=== PATIENT | male | born 1955 ===

== ENCOUNTER 2025-04-22 11:08 | Inpatient (IN) | payer MEDICARE, OTHER, SELFPAY ==
[2025-04-18 09:03] VITALS: BMI 36.6
[2025-04-18 10:45] LABS: % Basophils 1.4 % (0-2); % Eosinophils 4.1 % (0-6); % Immature Granulocytes 0.2 % (0-0.5); % Lymphocytes 29.8 % (20.5-51.1); % Monocytes 11.6 % (1.7-9.3); % Neutrophils 52.9 % (42.2-75.2); Absolute Basophils 0.1 10^3/uL (0-0.2); Absolute Eosinophils 0.3 10^3/uL (0-0.7); Absolute Lymphocytes 1.9 10^3/uL (1.2-3.4); Absolute Monocytes 0.7 10^3/uL (0.1-0.6); Absolute Neutrophils 3.4 10^3/uL (1.4-6.5); Hematocrit 33.8 % (39.0-52.0); Hemoglobin 9.9 g/dL (13.0-18.0); Mean Corp Hgb Conc. 29.3 g/dL (33.0-37.0); Mean Corpuscular Hgb 22.8 pg (27.0-31.0); Mean Corpuscular Volume 77.7 fL (80.0-94.0); Mean Platelet Volume 9.5 fL (7.4-10.4); Nucleated Red Blood Cells % 0 % (-); Platelet Count 227 10^3/uL (130-400); Red Blood Cell Count 4.35 10^6/uL (4.70-6.10); Red Cell Dist. Width 18.6 % (11.5-14.5); White Blood Cell Count 6.4 10^3/uL (4.8-10.8)
[2025-04-18 14:00] LABS: Blood Urea Nitrogen 19 mg/dl (9-20); Calcium 9.3 mg/dl (8.4-10.2); Carbon Dioxide 27 mmol/L (22-30); Chloride 108 mmol/L (98-107); Estimated Creatinine Clearance 100 ml/min; Glucose 69 mg/dl (70-99); Potassium 4.8 mmol/L (3.5-5.1); Sodium 142 mmol/L (135-145); eGFR > 60.00
--- NOTE | 2025-04-19 11:14 | PTCARENOTE ---
Patients 04/18 Hgb-9.9- Eunice @ Dr. Cervantes office notified
--- NOTE | 2025-04-20 10:04 | PTCARENOTE ---
MRSA positive swab 04/18/25, Eunice at Dr Deluna's office notified.
[2025-04-21] VITALS (8 sets, daily range): BP systolic 93–140; BP diastolic 48–76; BMI 36.6
[2025-04-21 14:20] LABS: Glucose - Point of Care 142 mg/dl (70-99)
[2025-04-21] MEDS: NORMOSOL-R/PLASMALYTE-A 1000 IV (14:25)
[2025-04-21] MEDS: TYLENOL 1000 MG PO (14:26)
[2025-04-21] MEDS: CELEBREX 200 MG PO (14:26)
[2025-04-21 16:37] LABS: Glucose - Point of Care 120 mg/dl (70-99)
--- NOTE | 2025-04-21 19:15 | W.PN.SURGUPD ---
Surgical Update
Surgical Update
70 yo M s/p left medial double arthrodesis and achilles tendon lengthening
-Posterior splint to remain C/D/I
-Strict NWB to LLE
-PT/OT, OK for DC following PT eval
-Multimodal analgesia, aspirin BID for DVT prophylaxis upon DC
[2025-04-21 19:40] LABS: Glucose - Point of Care 163 mg/dl (70-99)
--- NOTE | 2025-04-21 20:12 | HPS.HSE ---
Family Physician
-
Family Physician: Stephanie Car
Chief Complaint
-
Postoperative admission
History of Present Illness
Patient is a 70-year-old male with past medical history significant for insulin-dependent diabetes, atrial fibrillation anticoagulation, hypertension, presenting to the hospital postop day 0 status post double arthrodesis and Achilles tendon
lengthening.
This is a plan procedure. No description of intraoperative complications. While in the PACU patient appears in no acute distress. He is hemodynamically stable. He is satting 93% on 2 L oxygen. Patient underwent this procedure for left
flatfootedness.
Medical History
Past Medical History
Past Medical History: Reports Arrhythmia (Atrial fibrillation), HTN, Hypercholesterolemia and IDDM
Past Surgical History: Reports Appendectomy (For remote appendageal tumor), Orthopedic (Bilateral knee replacement, left and right shoulder repairs) and Other (Hernia repair)
Social History
Tobacco: Non-smoker
Alcohol: Occasional
Drug: None
Personal:
Living: With Family
Employment: Not Employed
Family History
Family History: Not pertinent
Allergies / Home Medications
Allergies reflects when Allergies were last updated in [facility] [facility].
Home Medications with original date entered in [facility] [facility]
Allergy/Medication List:
Allergies
Allergy/AdvReac Type Severity Reaction Status Date / Time
No Known Allergies Allergy Verified 04/21/25 14:13
Home Medications
albuterol sulfate 90 mcg/actuation aerosol inhaler (Ventolin HFA) 2 puff inhalation 6XD PRN asthma 04/14/25
amiodarone 200 mg tablet 200 mg PO DAILY 04/14/25
apixaban 5 mg tablet (Eliquis) 5 mg PO BID 04/14/25
atorvastatin 10 mg tablet 10 mg PO QPM 04/14/25
furosemide 20 mg tablet 20 mg PO BID 04/14/25
insulin NPH-regular 70-30 U-100 insulin 100 unit/mL subcutaneous pen (Novolin 70-30 FlexPen U-100 Insulin) 20 unit SC HS 04/14/25
insulin NPH-regular 70-30 U-100 insulin 100 unit/mL subcutaneous pen (Novolin 70-30 FlexPen U-100 Insulin) 40 unit SC DAILY 04/14/25
metoprolol succinate 25 mg tablet,extended release 24 hr 25 mg PO BID 04/14/25
multivitamin with minerals-folic acid 400 mcg-lycopene 370 mcg tablet (One-A-Day Men's 50 Plus) 1 tab PO DAILY 04/14/25
oxycodone-acetaminophen 10 mg-325 mg tablet 1 tab PO Q4H PRN pain 04/14/25
potassium chloride 10 mEq tablet,extended release 10 meq PO DAILY 04/14/25
tirzepatide 7.5 mg/0.5 mL subcutaneous pen injector (Mounjaro) 7.5 mg SC QWEEK 04/14/25
valacyclovir 500 mg tablet 500 mg PO HS 04/14/25
venlafaxine 75 mg capsule,extended release 24 hr (Effexor XR) 75 mg PO HS 04/14/25
Review of Systems
-
Constitutional: Reports No Symptoms
EENT: Reports No Symptoms
Respiratory: Reports No Symptoms
Cardiac: Reports No Symptoms
Abdomen/GI: Reports No Symptoms
: Reports No Symptoms
Musculoskeletal: Reports No Symptoms
Skin: Reports No Symptoms
Neurological: Reports No Symptoms
Endocrine: Reports No Symptoms
Hematologic/Lymphatic: Reports No Symptoms
Psych: Reports No Symptoms
Physical Exam
Vital Signs
Vital Signs
Temp Pulse Resp BP Pulse Ox
98.1 F 71 12 114/67 94
04/21/25 19:33 04/21/25 20:00 04/21/25 20:00 04/21/25 20:00 04/21/25 20:04
Physical Exam
General: Well Developed, Well Nourished and No Apparent Distress
HEENT: NormoCephalic, Moist mucous membranes, Atraumatic and Oxygen
Respiratory: Clear
Cardiac: S1/S2 and Regular Rhythm; No Murmur or Rub
GI: Soft, Non Tender, Non Distended and Normal Bowel Sounds; No Organomegaly
Rectal: Deferred by Provider
Musculoskeletal: No Clubbing, No Cyanosis, No Edema and Other (Left foot in a cast, Right foot appears normal)
Skin: No Rash
Neuro: Nonfocal/grossly intact
Psych: Calm
Laboratory Results
-
04/18/25 09:09
04/18/25 09:09
Data Reviewed
-
Lab Data: Labs Reviewed by me
Old Records: Reviewed
Impression/Plan
-
IMPRESSION:
70-year-old with past medical history of atrial fibrillation ablation, hypertension, hyperlipidemia, insulin-dependent diabetes who is postop day 0 status post left lower extremity arthrodesis and likely sternal lengthening.
PLAN:
1. Post surgical care
- admit to med/surg
- pain control with prn tylenol, oycodone and iv morphine as needed
- NWB to his LLE splint
- Ancef x 24 hours
- incentive spirometry
- ADAT
- PT consultation
2. Atrial fibrillation
- continue amio
- continue metoprolol
- restart AC w/ apixaban 24-48 hours after procedure
3. DM II
- Insulin 70/30 40 am and 20 pm
- sliding scale insulin
4. MELBA - not on CPAP
- Oxygen by [facility]
5. DVT PPX - heparin sq while off AC
Code Status - Full Code
[2025-04-21] MEDS: ANCEF 10 IV (21:16)
--- NOTE | 2025-04-21 21:16 | PTCARENOTE ---
Pt transferred from PACU to at 2116. VSS. AAOx3. Spouse at beside. Oriented to room and call sims. Bed in lowest position, call sims within reach, bed in lowest position.
[2025-04-21 22:24] LABS: Glucose - Point of Care 189 mg/dl (70-99)
[2025-04-21] MEDS: VALTREX 500 MG PO (22:37)
[2025-04-21] MEDS: EFFEXOR XR 75 MG PO (22:37)
[2025-04-21] MEDS: NOVOLOG MIX 70/30 FLEXPEN 15 UNITS SC (22:38)
[2025-04-21] MEDS: HEPARIN 5000 UNITS SC (23:18)
[2025-04-22] VITALS (8 sets, daily range): BP systolic 111–145; BP diastolic 53–70; PULSE 71
[2025-04-22] MEDS: ROXICODONE 10 MG PO ×5 (00:58→21:43)
[2025-04-22] MEDS: ANCEF 10 IV ×3 (03:08→19:45)
[2025-04-22 07:16] LABS: Hematocrit 28.2 % (39.0-52.0); Hemoglobin 8.6 g/dL (13.0-18.0); Mean Corp Hgb Conc. 30.5 g/dL (33.0-37.0); Mean Corpuscular Hgb 23.3 pg (27.0-31.0); Mean Corpuscular Volume 76.4 fL (80.0-94.0); Mean Platelet Volume 9.3 fL (7.4-10.4); Platelet Count 212 10^3/uL (130-400); Red Blood Cell Count 3.69 10^6/uL (4.70-6.10); White Blood Cell Count 11.2 10^3/uL (4.8-10.8)
[2025-04-22 07:39] LABS: Blood Urea Nitrogen 17 mg/dl (9-20); Calcium 8.9 mg/dl (8.4-10.2); Carbon Dioxide 26 mmol/L (22-30); Chloride 108 mmol/L (98-107); Estimated Creatinine Clearance 113 ml/min; Glucose 170 mg/dl (70-99); Potassium 4.4 mmol/L (3.5-5.1); Sodium 141 mmol/L (135-145); eGFR > 60.00
[2025-04-22 07:54] LABS: Glucose - Point of Care 189 mg/dl (70-99)
[2025-04-22] MEDS: NOVOLOG FLEXPEN-LOW RESISTANCE 1 UNITS SC ×3 (08:03→17:36)
[2025-04-22] MEDS: HEPARIN 5000 UNITS SC ×3 (08:03→23:18)
[2025-04-22] MEDS: LASIX 20 MG PO ×2 (08:04→15:44)
[2025-04-22] MEDS: PACERONE 200 MG PO (08:04)
[2025-04-22] MEDS: TOPROL XL 25 MG PO ×2 (08:04→19:45)
[2025-04-22] MEDS: THERAGRAN 1 TABLET PO (08:04)
[2025-04-22] MEDS: NOVOLOG MIX 70/30 FLEXPEN 30 UNITS SC (08:05)
--- NOTE | 2025-04-22 08:37 | W.PN.HOSP.TC ---
Today's Communication/Plan
-
see bold
Assessment / Plan
Assessment / Plan
HPI: 70-year-old with past medical history of atrial fibrillation ablation, hypertension, hyperlipidemia, insulin-dependent diabetes status post left lower extremity arthrodesis and likely sternal lengthening 04/21. �
#Left foot Charcot arthropathy, Tendo-Achilles contracture and 2nd hammertoe
Status post left lower extremity arthrodesis and likely sternal lengthening 04/[address] Deluna
PT/OT, pain control, laxatives, NWB to his LLE splint
Awaiting 3 midnight stay for discharge to short-term rehab
#Paroxysmal atrial fibrillation
Continue amiodarone, metoprolol
Plan to restart Eliquis tomorrow evening
#Type 2 diabetes
Continue home insulin regimen with sliding scale insulin
Insulin 70/30 40 am and 20 pm
#MELBA
Not on CPAP
Oxygen by [facility]
#Acute blood loss anemia from surgery
Mild, monitor hemoglobin
DVT prophylaxis-subcu heparin while off of Eliquis
Code Status - Full Code
Total time spent to see the patient on the floor, examine the patient, review data and lab results, discuss treatment plan with patient, nursing staff around 37 minutes.
Physical Exam
General: No acute distress
HEENT: Normocephalic, Atraumatic, EOMI, MMM
Respiratory: Clear to Auscultation bilaterally
Cardiac: Normal S1/S2, Regular Rate and Rhythm
GI: Soft, Nontender, Nondistended, Normal Bowel Sounds
Extremities: No Clubbing, Cyanosis
Left foot splinted and dressed
Neuro: Nonfocal/Grossly Intact
Psych: Calm, Cooperative
Derm: No Visible lesions
Anticipated Discharge: 24 - 48 hours
Subjective/Interval History
-
Date of Service: April 22, 2025
Patient reports that his left foot is numb from the nerve block. He has his usual neuropathy. Denies chest pain, shortness of breath. No fever, no vomiting. He wants to go to rehab.
Objective Data
-
Labs:
Laboratory Results
04/22/25
06:25
WBC 11.2 H
Hgb 8.6 L
Hct 28.2 L
Plt Count 212
Sodium 141
Potassium 4.4
Chloride 108 H
Carbon Dioxide 26
BUN 17
Creatinine 0.8
Glucose 170 H
Calcium 8.9
Vital Signs:
Vital Signs
Temp Pulse Resp BP Pulse Ox
98.0 F 68 16 145/70 96
04/22/25 07:04 04/22/25 07:04 04/22/25 07:04 04/22/25 07:04 04/22/25 07:04
I&O
04/21/25 04/22/25 04/23/25
06:59 06:59 06:59
Intake Total 100 / 100 240 / 240
Output Total 400 / 400
Balance -300 / -300 240 / 240
--- NOTE | 2025-04-22 10:52 | CM ---
CM following re: discharge planning.
Reviewed pt's chart, met with pt.
pt is a 70 year old male, admitted with primary dx of POD#1 Left foot Charcot neuro arthropathy and tendo-Achilles contracture and 2nd hammertoe. Contuinue supportive crae.
Pt repprts he lives with spouse 2SH, 6
--- NOTE | 2025-04-22 10:55 | CM ---
CM following re: discharge planning.
Reviewed pt's chart, met with pt.
Pt is a 70 year old male, admitted with primary dx of POD#1 Left foot Charcot neuro arthropathy and tendo-Achilles contracture and 2nd hammertoe. Continue supportive care.
Pt reports he lives with spouse 2SH, 5 steps to enter and has 1st floor set up. Pt reports he has 2 supportive children. Pt reports he has a walker, knee scooter and crutches at home. Pt is aware he will have NWB status for 6-8 weeks. Pt expressed
his desire to go to a SNF for a short term rehab and following SNFs requested: [facility], [facility], [facility], [facility].
CM will make a referral to above SNFs after PT/OT evaluations.
PT and OT will evaluate the pt to determine a level of care at discharge.
PCP: Stephanie Car
Pharmacy: [facility]
D/C plan: per pt's request, preferred SNF.
CM will follow to assist pt with discharge to a preferred SNF.
[2025-04-22 11:44] LABS: Glucose - Point of Care 181 mg/dl (70-99)
[2025-04-22 16:49] LABS: Glucose - Point of Care 153 mg/dl (70-99)
[2025-04-22] MEDS: LIPITOR 10 MG PO (17:37)
[2025-04-22] MEDS: EFFEXOR XR 75 MG PO (21:18)
[2025-04-22] MEDS: VALTREX 500 MG PO (21:18)
[2025-04-22 21:37] LABS: Glucose - Point of Care 158 mg/dl (70-99)
[2025-04-22] MEDS: NOVOLOG MIX 70/30 FLEXPEN 15 UNITS SC (21:44)
[2025-04-22] MEDS: DILAUDID 0.5 MG IV (22:26)
[2025-04-23] MEDS: ROXICODONE 10 MG PO ×3 (04:51→20:41)
[2025-04-23 06:10] LABS: Hemoglobin 8.2 g/dL (13.0-18.0); Mean Corp Hgb Conc. 30.4 g/dL (33.0-37.0); Mean Corpuscular Hgb 22.8 pg (27.0-31.0); Mean Corpuscular Volume 75.2 fL (80.0-94.0); Mean Platelet Volume 9.7 fL (7.4-10.4); Platelet Count 200 10^3/uL (130-400); Red Blood Cell Count 3.59 10^6/uL (4.70-6.10); Red Cell Dist. Width 19.1 % (11.5-14.5); White Blood Cell Count 9.6 10^3/uL (4.8-10.8)
--- NOTE | 2025-04-23 06:59 | W.PN.HOSP.TC ---
Today's Communication/Plan
-
see a/p
Assessment / Plan
Assessment / Plan
Physical Exam
General: No acute distress
HEENT: Normocephalic, Atraumatic, EOMI, MMM
Respiratory: Clear to Auscultation bilaterally
Cardiac: Normal S1/S2, Regular Rate and Rhythm
GI: Soft, Nontender, Nondistended, Normal Bowel Sounds
Extremities: Left foot dressing clean dry intact
Neuro: AOx3 conversant coherent
Psych: Calm, Cooperative
Derm: No Visible lesions
HPI: 70M with past medical history of atrial fibrillation ablation, hypertension, hyperlipidemia, insulin-dependent diabetes status post left lower extremity medial double arthrodesis and Achilles tendon lengthening 04/21. �
#Left foot Charcot arthropathy, Tendo-Achilles contracture and 2nd hammertoe
Status post left lower extremity double arthrodesis and Achilles Tendon lengthening 04/[address] Deluna
PT/OT, pain control, laxatives, NWB to his LLE splint
Awaiting 3 midnight stay for discharge to short-term rehab
#Paroxysmal atrial fibrillation
Continue amiodarone, metoprolol
Eliquis to resume this evening
#Type 2 diabetes
Continue home insulin regimen with sliding scale insulin
Insulin 70/30 40 am and 20 pm
#MELBA
Not on CPAP
Oxygen by [facility]
#Acute blood loss anemia from surgery
Mild, monitor hemoglobin
DVT prophylaxis-Eliquis to resume this evening
Code Status - Full Code
Total time spent to see the patient on the floor, examine the patient, review data and lab results, discuss treatment plan with patient, nursing staff around 40 minutes.
Anticipated Discharge: 24 - 48 hours
Subjective/Interval History
-
Date of Service: April 23, 2025
No acute distress sitting up comfortably in chair. Overall reports feeling well. Pain relatively well controlled with current pain regimen.
Objective Data
-
Labs:
Laboratory Results
04/23/25
05:04
WBC 9.6
Hgb 8.2 L
Hct 27.0 L
Plt Count 200
Vital Signs:
Vital Signs
Temp Pulse Resp BP Pulse Ox
98.2 F 67 17 127/67 91
04/22/25 23:00 04/22/25 23:00 04/22/25 23:00 04/22/25 23:00 04/22/25 23:00
I&O
04/21/25 04/22/25 04/23/25
06:59 06:59 06:59
Intake Total 100 / 100 1600 / 1600
Output Total 400 / 400 1950 / 1950
Balance -300 / -300 -350 / -350
[2025-04-23 07:00] VITALS: BP 121/59
[2025-04-23 07:37] LABS: Glucose - Point of Care 124 mg/dl (70-99)
[2025-04-23] MEDS: LASIX 20 MG PO ×2 (08:43→16:08)
[2025-04-23] MEDS: NOVOLOG FLEXPEN-LOW RESISTANCE SC ×2 (08:43→12:01)
[2025-04-23] MEDS: THERAGRAN 1 TABLET PO (08:43)
[2025-04-23] MEDS: HEPARIN 5000 UNITS SC (08:43)
[2025-04-23] MEDS: PACERONE 200 MG PO (08:43)
[2025-04-23] MEDS: NOVOLOG MIX 70/30 FLEXPEN 30 UNITS SC (08:44)
[2025-04-23] MEDS: TOPROL XL 25 MG PO ×2 (08:44→20:35)
[2025-04-23] MEDS: DILAUDID 0.5 MG IV ×2 (08:47→22:08)
[2025-04-23 11:42] LABS: Glucose - Point of Care 144 mg/dl (70-99)
[2025-04-23 15:00] VITALS: BP 125/62
[2025-04-23 17:18] LABS: Glucose - Point of Care 185 mg/dl (70-99)
[2025-04-23] MEDS: NOVOLOG FLEXPEN-LOW RESISTANCE 1 UNITS SC (17:38)
[2025-04-23] MEDS: LIPITOR 10 MG PO (17:38)
[2025-04-23] MEDS: EFFEXOR XR 75 MG PO (20:35)
[2025-04-23] MEDS: VALTREX 500 MG PO (20:35)
[2025-04-23] MEDS: ELIQUIS 5 MG PO (20:39)
[2025-04-23 21:40] LABS: Glucose - Point of Care 145 mg/dl (70-99)
[2025-04-23] MEDS: NOVOLOG MIX 70/30 FLEXPEN 15 UNITS SC (22:04)
[2025-04-23 23:00] VITALS: BP 140/59
[2025-04-24 04:59] LABS: Hematocrit 27.6 % (39.0-52.0); Hemoglobin 8.3 g/dL (13.0-18.0); Mean Corp Hgb Conc. 30.1 g/dL (33.0-37.0); Mean Corpuscular Hgb 22.6 pg (27.0-31.0); Mean Corpuscular Volume 75.2 fL (80.0-94.0); Mean Platelet Volume 9.4 fL (7.4-10.4); Platelet Count 221 10^3/uL (130-400); Red Blood Cell Count 3.67 10^6/uL (4.70-6.10); White Blood Cell Count 8.8 10^3/uL (4.8-10.8)
--- NOTE | 2025-04-24 07:02 | W.PN.HOSP.TC ---
Today's Communication/Plan
-
cont Eliquis
monitor H&H
PT/OT
pain control
wound care
discharge planning SNF rehab
Assessment / Plan
Assessment / Plan
Physical Exam
General: No acute distress
HEENT: Normocephalic, Atraumatic, EOMI, MMM
Respiratory: Clear to Auscultation bilaterally
Cardiac: Normal S1/S2, Regular Rate and Rhythm
GI: Soft, Nontender, Nondistended, Normal Bowel Sounds
Extremities: Left foot dressing clean dry intact
Neuro: AOx3 conversant coherent
Psych: Calm, Cooperative
Derm: No Visible lesions
HPI: 70M with past medical history of atrial fibrillation ablation, hypertension, hyperlipidemia, insulin-dependent diabetes status post left lower extremity medial double arthrodesis and Achilles tendon lengthening 04/21. �
#Left foot Charcot arthropathy, Tendo-Achilles contracture and 2nd hammertoe
Status post left lower extremity double arthrodesis and Achilles Tendon lengthening 04/[address] Deluna
PT/OT, pain control, laxatives, NWB to his LLE splint
Awaiting 3 midnight stay for discharge to short-term rehab
#Paroxysmal atrial fibrillation
Continue amiodarone, metoprolol
Eliquis to resumed evening 04/23/25, tolerating, cont
#Type 2 diabetes
Continue home insulin regimen with sliding scale insulin
Insulin 70/30 40 am and 20 pm
monitor and titrate insulin regimen as necessary
#MELBA
Not on CPAP
Oxygen by [facility]
#Acute blood loss anemia from surgery
Mild, monitor hemoglobin
DVT prophylaxis-Eliquis
Code Status - Full Code
Total time spent to see the patient on the floor, examine the patient, review data and lab results, discuss treatment plan with patient, nursing staff around 40 minutes.
Anticipated Discharge: 24 - 48 hours
Subjective/Interval History
-
Date of Service: April 24, 2025
No acute distress. Pain relatively well controlled at this time with current pain regimen.
Objective Data
-
Labs:
Laboratory Results
04/24/25
04:05
WBC 8.8
Hgb 8.3 L
Hct 27.6 L
Plt Count 221
Vital Signs:
Vital Signs
Temp Pulse Resp BP Pulse Ox
98.7 F 69 16 140/59 95
04/23/25 23:00 04/23/25 23:00 04/23/25 23:00 04/23/25 23:00 04/23/25 23:00
I&O
04/23/25 04/24/25 04/25/25
06:59 06:59 06:59
Intake Total 1600 / 1600 600 / 600
Output Total 1950 / 1950 3000 / 3000
Balance -350 / -350 -2400 / -2400
[2025-04-24 07:15] VITALS: BP 111/53
[2025-04-24 07:43] LABS: Glucose - Point of Care 155 mg/dl (70-99)
[2025-04-24] MEDS: ROXICODONE 10 MG PO ×3 (08:02→23:55)
[2025-04-24] MEDS: TOPROL XL 25 MG PO ×2 (08:03→19:48)
[2025-04-24] MEDS: LASIX 20 MG PO ×2 (08:03→15:40)
[2025-04-24] MEDS: ELIQUIS 5 MG PO ×2 (08:03→19:47)
[2025-04-24] MEDS: NOVOLOG MIX 70/30 FLEXPEN 30 UNITS SC (08:04)
[2025-04-24] MEDS: NOVOLOG FLEXPEN-LOW RESISTANCE 1 UNITS SC (08:05)
[2025-04-24] MEDS: PACERONE 200 MG PO (08:05)
[2025-04-24] MEDS: THERAGRAN 1 TABLET PO (08:05)
[2025-04-24] MEDS: DILAUDID 0.5 MG IV ×2 (09:47→20:08)
[2025-04-24] MEDS: FLUSH (NSS) 2 FLUSH IV (09:48)
[2025-04-24 12:18] LABS: Glucose - Point of Care 73 mg/dl (70-99)
[2025-04-24] MEDS: NOVOLOG FLEXPEN-LOW RESISTANCE SC ×2 (12:29→17:03)
[2025-04-24 15:39] VITALS: BP 114/56
[2025-04-24 16:55] LABS: Glucose - Point of Care 119 mg/dl (70-99)
[2025-04-24 17:11] VITALS: BP 137/63; PULSE 67; O2SAT 97
[2025-04-24] MEDS: LIPITOR 10 MG PO (17:45)
[2025-04-24] MEDS: SENOKOT-S 1 TABLET PO (18:08)
[2025-04-24 19:45] VITALS: BP 161/66
[2025-04-24] MEDS: VALTREX 500 MG PO (21:10)
[2025-04-24] MEDS: EFFEXOR XR 75 MG PO (21:10)
[2025-04-24 21:36] LABS: Glucose - Point of Care 186 mg/dl (70-99)
[2025-04-24] MEDS: NOVOLOG MIX 70/30 FLEXPEN 15 UNITS SC (21:49)
[2025-04-24 23:00] VITALS: BP 132/61
[2025-04-25] MEDS: ROXICODONE 10 MG PO (05:53)
[2025-04-25 06:27] LABS: Hematocrit 28.3 % (39.0-52.0); Hemoglobin 8.7 g/dL (13.0-18.0); Mean Corp Hgb Conc. 30.7 g/dL (33.0-37.0); Mean Corpuscular Hgb 23.1 pg (27.0-31.0); Mean Corpuscular Volume 75.3 fL (80.0-94.0); Mean Platelet Volume 9.2 fL (7.4-10.4); Platelet Count 235 10^3/uL (130-400); Red Blood Cell Count 3.76 10^6/uL (4.70-6.10); Red Cell Dist. Width 19.1 % (11.5-14.5); White Blood Cell Count 7.8 10^3/uL (4.8-10.8)
[2025-04-25 06:52] LABS: Blood Urea Nitrogen 14 mg/dl (9-20); Calcium 8.7 mg/dl (8.4-10.2); Carbon Dioxide 29 mmol/L (22-30); Chloride 103 mmol/L (98-107); Estimated Creatinine Clearance 113 ml/min; Glucose 103 mg/dl (70-99); Iron 31 ug/dl (49-181); Sodium 140 mmol/L (135-145); eGFR > 60.00
[2025-04-25 07:01] LABS: Percent Saturation 8 % (20-50); Total Iron Binding Capacity 362 ug/dl (261-462)
[2025-04-25 07:05] VITALS: BP 117/50
[2025-04-25 07:19] LABS: Glucose - Point of Care 144 mg/dl (70-99)
[2025-04-25] MEDS: ELIQUIS 5 MG PO ×2 (07:29→19:30)
[2025-04-25] MEDS: NOVOLOG MIX 70/30 FLEXPEN 30 UNITS SC (07:29)
[2025-04-25] MEDS: NOVOLOG FLEXPEN-LOW RESISTANCE SC ×3 (07:29→16:27)
--- NOTE | 2025-04-25 07:33 | W.PN.HOSP.TC ---
Today's Communication/Plan
-
Pain regimen adjusted
Likely Discharge SNF rehab tomorrow if no longer requiring IV pain medication
Assessment / Plan
Assessment / Plan
Physical Exam
General: No acute distress
HEENT: Normocephalic, Atraumatic, EOMI, MMM
Respiratory: Clear to Auscultation bilaterally
Cardiac: Normal S1/S2, Regular Rate and Rhythm
GI: Soft, Nontender, Nondistended, Normal Bowel Sounds
Extremities: Left foot dressing clean dry intact
Neuro: AOx3 conversant coherent
Psych: Calm, Cooperative
Derm: No Visible lesions
HPI: 70M with past medical history of atrial fibrillation ablation, hypertension, hyperlipidemia, insulin-dependent diabetes status post left lower extremity medial double arthrodesis and Achilles tendon lengthening 04/21. �
#Left foot Charcot arthropathy, Tendo-Achilles contracture and 2nd hammertoe
Status post left lower extremity double arthrodesis and Achilles Tendon lengthening 04/[address] Deluna
Podiatry eval appreciated
PT/OT, pain control, laxatives, NWB to his LLE splint
continues to require IV Dilaudid for severe breakthrough pain
pain regimen adjusted prn Oxycodone increased to 10 mg for moderate pain and 15 mg for severe
#Paroxysmal atrial fibrillation
Continue amiodarone, metoprolol
Eliquis to resumed evening 04/23/25, tolerating, cont
#Type 2 diabetes
Continue home insulin regimen with sliding scale insulin
Insulin 70/30 40 am and 20 pm
monitor and titrate insulin regimen as necessary
#MELBA
Not on CPAP
Oxygen by [facility]
#Acute blood loss anemia from surgery
#Iron Deficiency Anemia
Mild, monitor hemoglobin
Hgb Trending up
Iron Supplement
DVT prophylaxis-Eliquis
Code Status - Full Code
Total time spent to see the patient on the floor, examine the patient, review data and lab results, discuss treatment plan with patient, nursing staff around 40 minutes.
Anticipated Discharge: Within 24 hours
Subjective/Interval History
-
Date of Service: April 25, 2025
No acute distress, overall reports feeling well. Continues to require IV dilaudid for severe break through pain, last dose this morning.
Objective Data
-
Labs:
Laboratory Results
04/25/25
05:22
WBC 7.8
Hgb 8.7 L
Hct 28.3 L
Plt Count 235
Sodium 140
Potassium 4.0
Chloride 103
Carbon Dioxide 29
BUN 14
Creatinine 0.8
Glucose 103 H
Calcium 8.7
Vital Signs:
Vital Signs
Temp Pulse Resp BP Pulse Ox
99.4 F 64 17 132/61 95
04/24/25 23:00 04/24/25 23:00 04/24/25 23:00 04/24/25 23:00 04/24/25 23:00
I&O
04/24/25 04/25/25 04/26/25
06:59 06:59 06:59
Intake Total 600 / 600 600 / 600
Output Total 3000 / 3000 1550 / 1550
Balance -2400 / -2400 -950 / -950
[2025-04-25] MEDS: LASIX 20 MG PO ×2 (07:34→16:27)
[2025-04-25] MEDS: TOPROL XL 25 MG PO ×2 (07:34→19:31)
[2025-04-25] MEDS: DILAUDID 0.5 MG IV (07:35)
[2025-04-25] MEDS: FLUSH (NSS) 2 FLUSH IV (07:36)
[2025-04-25] MEDS: THERAGRAN 1 TABLET PO (07:46)
[2025-04-25] MEDS: PACERONE 200 MG PO (07:46)
[2025-04-25 07:49] LABS: Folate > 20.0 ng/ml (2.76-20); Vitamin B12 447 pg/ml (239-931)
[2025-04-25] MEDS: FEOSOL 325 MG PO (09:01)
--- NOTE | 2025-04-25 10:03 | CM ---
CM following re: discharge planning.
Reviewed pt's chart, met with pt.
Pt is s/p left lower extremity double arthrodesis and Achilles Tendon lengthening 04/21/25, NWB to his LLE splint.
PT and OT evaluations noted - SNF level of care recommended.
Pt has been notified that [facility] SN[facility], [facility] and [facility] offered a bed. Pt preferred [facility].
IMM reviewed, placed on chart, pt has a copy.
D/C plan: [facility].
CM will follow to assist pt with discharge to [facility] for a short term rehab.
[2025-04-25 11:38] LABS: Glucose - Point of Care 105 mg/dl (70-99)
[2025-04-25] MEDS: ROXICODONE 15 MG PO ×3 (12:51→23:35)
--- NOTE | 2025-04-25 14:23 | W.PN.SURGUPD ---
Surgical Update
Surgical Update
70 yo M s/p left medial double arthrodesis and achilles tendon lengthening DOS 04/21/2025
-Posterior splint to remain C/D/I
-Strict NWB to LLE
-PT/OT
-Anticipate DC to SNF 04/26
-Multimodal analgesia, aspirin BID for DVT prophylaxis upon DC
-F/u 2 weeks after surgery at [facility]
[2025-04-25 15:05] VITALS: BP 148/79
[2025-04-25 16:02] LABS: Glucose - Point of Care 122 mg/dl (70-99)
[2025-04-25] MEDS: LIPITOR 10 MG PO (16:27)
[2025-04-25] MEDS: TYLENOL 650 MG PO ×3 (16:27→23:35)
[2025-04-25 19:32] VITALS: BP 113/51
[2025-04-25] MEDS: MIRALAX 17 GRAMS PO (19:36)
[2025-04-25] MEDS: SENOKOT-S 1 TABLET PO (19:36)
[2025-04-25 20:53] LABS: Glucose - Point of Care 120 mg/dl (70-99)
[2025-04-25] MEDS: NOVOLOG MIX 70/30 FLEXPEN 15 UNITS SC (21:07)
[2025-04-25] MEDS: VALTREX 500 MG PO (21:07)
[2025-04-25] MEDS: EFFEXOR XR 75 MG PO (21:07)
[2025-04-25 23:00] VITALS: BP 126/49
[2025-04-26] MEDS: ROXICODONE 15 MG PO ×4 (04:35→18:53)
[2025-04-26] MEDS: TYLENOL 650 MG PO ×2 (04:35→09:56)
[2025-04-26 07:10] VITALS: BP 107/44
[2025-04-26 07:25] LABS: Glucose - Point of Care 100 mg/dl (70-99)
[2025-04-26] MEDS: NOVOLOG FLEXPEN-LOW RESISTANCE SC ×3 (07:30→18:05)
--- NOTE | 2025-04-26 07:38 | W.PN.HOSP.TC ---
Today's Communication/Plan
-
discharge
Assessment / Plan
Assessment / Plan
Physical Exam
General: No acute distress
HEENT: Normocephalic, Atraumatic, EOMI, MMM
Respiratory: Clear to Auscultation bilaterally
Cardiac: Normal S1/S2, Regular Rate and Rhythm
GI: Soft, Nontender, Nondistended, Normal Bowel Sounds
Extremities: Left foot dressing clean dry intact
Neuro: AOx3 conversant coherent
Psych: Calm, Cooperative
Derm: No Visible lesions
HPI: 70M with past medical history of atrial fibrillation ablation, hypertension, hyperlipidemia, insulin-dependent diabetes status post left lower extremity medial double arthrodesis and Achilles tendon lengthening 04/21. �
#Left foot Charcot arthropathy, Tendo-Achilles contracture and 2nd hammertoe
Status post left lower extremity double arthrodesis and Achilles Tendon lengthening 04/[address] Deluna
Podiatry eval appreciated
PT/OT, pain control, laxatives, NWB to his LLE splint
pain regimen adjusted prn Oxycodone increased to 10 mg for moderate pain and 15 mg for severe
pain subsequently well controlled, no need IV pain meds 24 hours.
#Paroxysmal atrial fibrillation
Continue amiodarone, metoprolol
Eliquis to resumed evening 04/23/25, tolerating, cont
#Type 2 diabetes
Continue home insulin regimen with sliding scale insulin
Insulin 70/30 40 am and 20 pm
Sugars well controlled during stay
#MELBA
Not on CPAP
Oxygen by [facility]
#Acute blood loss anemia from surgery
#Iron Deficiency Anemia
Mild, monitor hemoglobin
Hgb Trending up
Iron Supplement
DVT prophylaxis-Eliquis
Code Status - Full Code
Medically stable fo discharge SNF rehab with outpatient follow up recommendations.
Total Time Preparing Discharge __40 minutes including examination of the patient, summary of the hospital stay, instructions for continuing care to all relevant caregivers; and preparation of discharge records, prescriptions, and referral
forms if necessary.
Anticipated Discharge: Today
Subjective/Interval History
-
Date of Service: April 26, 2025
Seen and examined at bedside in no acute distress. Overall reports feeling well. pain well controlled with current pain regimen. No need for IV pain med past 24 hours. Looking forward to SNF rehab.
Objective Data
-
Vital Signs:
Vital Signs
Temp Pulse Resp BP Pulse Ox
98.4 F 64 16 126/49 98
04/25/25 23:00 04/25/25 23:00 04/25/25 23:00 04/25/25 23:00 04/25/25 23:00
I&O
04/25/25 04/26/25 04/27/25
06:59 06:59 06:59
Intake Total 600 / 600 1560 / 1560
Output Total 1550 / 1550 600 / 600
Balance -950 / -950 960 / 960
[2025-04-26] MEDS: NOVOLOG MIX 70/30 FLEXPEN 30 UNITS SC (09:53)
[2025-04-26] MEDS: PACERONE 200 MG PO (09:55)
[2025-04-26] MEDS: LASIX 20 MG PO ×2 (09:55→18:05)
[2025-04-26] MEDS: FEOSOL 325 MG PO (09:55)
[2025-04-26] MEDS: ELIQUIS 5 MG PO (09:55)
[2025-04-26] MEDS: THERAGRAN 1 TABLET PO (09:55)
[2025-04-26] MEDS: TOPROL XL 25 MG PO (09:55)
[2025-04-26 12:14] LABS: Glucose - Point of Care 93 mg/dl (70-99)
--- NOTE | 2025-04-26 13:11 | CM ---
CM following re: discharge planning.
Reviewed pt's chart, met with pt.
Pt is s/p left lower extremity double arthrodesis and Achilles Tendon lengthening 04/21/25, NWB to his LLE splint.
PT and OT continue recommencing SNF level of care.
Pt preferred [facility]. CM spoke to [facility] admissions evaluator and she confirmed they do have a bed available and pt is accepted for admission today.
IMM reviewed yesterday placed on chart, pt has a copy.
to arrange ambulance BLS. PMNC completed and left with
[facility] nursing report: [phone]
Discharge instructions fax: [phone]
D/C plan: [facility].
--- NOTE | 2025-04-26 13:22 | W.DCSUMMARY ---
Discharge Summary
Discharge Data
Date of Admission: 04/22/25
Date of Discharge: 04/26/25
-
Pending Results: No
Discharge Plan
-
Patient Disposition: [facility]/SNF
Discharge Diagnosis/Procedures: Left foot Charcot arthropathy, Tendo-Achilles contracture and 2nd hammertoe
Status post left lower extremity double arthrodesis and Achilles Tendon lengthening 04/21/[address] Deluna
Paroxysmal atrial fibrillation
Type 2 diabetes
Obstructive sleep apnea, Not on CPAP, on 2L nasal cannula at bedtime
Acute blood loss anemia from surgery
Iron Deficiency Anemia
Condition: Fair
Diet: Diabetic, Carb Controlled
Activity: With assistance, Do not bear weight L leg and With Walker
Driving Restrictions: Not until seen by your Dr
Blood Work: repeat CBC and BMP with primary care provider in 1 week of discharge
Repeat Iron studies with primary care provider in 1 month of discharge
Other Services: PT and OT
Activity Restrictions/Additional Instructions:
Follow up with divorce lawyer in 1 week of discharge.
Scheduled tylenol prescribed for pain.
As needed oxycodone also prescribed for pain.
Iron supplementation prescribed for iron deficiency anemia.
Please take medications as prescribed/recommended and follow up with primary care provider and/or other healthcare provider involved in your care for refills and/or further adjustment to your medication regimen as necessary.
Referrals:
Stephanie Car MD [Family Provider]
Krunal Deluna DPM [Active, Podiatry] - in one week
Prescriptions:
New
ferrous sulfate [FeroSul] 325 mg (65 mg iron) Tablet
325 mg PO DAILY Qty: 30 0RF
acetaminophen [Tylenol Extra Strength] 500 mg Tablet
1,000 mg PO TID 7 Days Qty: 42 0RF
oxycodone 15 mg Tablet
15 mg PO Q4HPRN PRN (Reason: severe pain) Qty: 18 0RF
oxycodone 10 mg Tablet
10 mg PO Q4HPRN PRN (Reason: MODERATE PAIN) Qty: 18 0RF
Continued
venlafaxine [Effexor XR] 75 mg Capsule,Extended Release 24hr
75 mg PO HS
atorvastatin 10 mg Tablet
10 mg PO QPM
amiodarone 200 mg Tablet
200 mg PO DAILY
valacyclovir 500 mg Tablet
500 mg PO HS
furosemide 20 mg Tablet
20 mg PO BID
metoprolol succinate 25 mg Tablet Extended Release 24 Hr
25 mg PO BID
Novolin 70-30 FlexPen U-100 100 unit/mL (70-30) Insulin Pen
40 unit SC DAILY
Novolin 70-30 FlexPen U-100 100 unit/mL (70-30) Insulin Pen
20 unit SC HS
Rx Instructions:
took 10 units 04/20/25
Eliquis 5 mg Tablet
5 mg PO BID
Mounjaro 7.5 mg/0.5 mL Pen Injector
7.5 mg SC QWEEK
Rx Instructions:
sundays
One-A-Day Men's 50 Plus 400-370 mcg Tablet
1 tab PO DAILY
albuterol sulfate [Ventolin HFA] 90 mcg/actuation Hfa Aerosol Inhaler
2 puff INHALATION 6XD PRN (Reason: asthma)
Discontinued
potassium chloride 10 mEq Tablet Extended Release
10 meq PO DAILY
oxycodone-acetaminophen 10-325 mg Tablet
1 tab PO Q4H PRN (Reason: pain)
Discharge Orders:
Discharge Patient (As Directed); Ordered 04/26/25
Ordered By: Tisha Villafuerte
Discharge Date and Time
Print Language: [place]
[2025-04-26] MEDS: TYLENOL PO (14:31)
[2025-04-26 15:05] VITALS: BP 110/69
[2025-04-26 16:53] LABS: Glucose - Point of Care 101 mg/dl (70-99)
[2025-04-26] MEDS: LIPITOR 10 MG PO (18:05)
[2025-04-26] MEDS: TYLENOL 1000 MG PO (18:05)
== END 2025-04-26 19:04 | DRG 504 ==
LOC: 2 SOUTH 11:08
PROVIDERS: Family Medicine; Internal Medicine; ADMITTING PHYSICIAN Student in an Organized Health Care Education/Training Program; ATTENDING PHYSICIAN Internal Medicine; FAMILY PHYSICIAN Internal Medicine; REFERRING PHYSICIAN Internal Medicine Cardiovascular Disease
PROC: 0SGJ0JZ Fusion of Left Tarsal Joint with Synthetic Substitute, Open Approach (ICD-10-PCS; 2025-04-22)
PROC: 0L8P0ZZ Division of Left Lower Leg Tendon, Open Approach (ICD-10-PCS; 2025-04-22)
DX: M67.02 Short Achilles tendon (acquired), left ankle (principal); D62 Acute posthemorrhagic anemia; M20.42 Other hammer toe(s) (acquired), left foot; E11.610 Type 2 diabetes mellitus with diabetic neuropathic arthropathy; I48.0 Paroxysmal atrial fibrillation; G47.33 Obstructive sleep apnea (adult) (pediatric); D50.9 Iron deficiency anemia, unspecified; Z79.01 Long term (current) use of anticoagulants; Z79.4 Long term (current) use of insulin; Z79.899 Other long term (current) drug therapy; I10 Essential (primary) hypertension
CPT/HCPCS: 73630; 76000; 80048; 82607; 82728; 82746; 82962; 83540; 83550; 83735; 84100; 85025; 85027; 87070; 87147; 97110; 97116; 97162; 97166; 97530; 97535; C1713

== ENCOUNTER 2025-06-29 20:45 | Inpatient (IN) | payer MEDICARE, OTHER, SELFPAY ==
[2025-06-29 14:53] VITALS: BMI 33.1
[2025-06-29 15:02] VITALS: BP 109/55
[2025-06-29 15:31] LABS: Hematocrit 29.1 % (39.0-52.0); Hemoglobin 8.8 g/dL (13.0-18.0); Mean Corp Hgb Conc. 30.2 g/dL (33.0-37.0); Mean Corpuscular Volume 75.0 fL (80.0-94.0); Nucleated Red Blood Cells % 0 % (-); Platelet Count 404 10^3/uL (130-400); Red Cell Dist. Width 20.8 % (11.5-14.5)
[2025-06-29 15:39] LABS: ALT (SGPT) 28 U/L (0-50); AST (SGOT) 32 U/L (17-59); Albumin 3.3 g/dl (3.5-5.0); Alkaline Phosphatase 103 U/L (38-126); Blood Urea Nitrogen 14 mg/dl (9-20); Calcium 8.5 mg/dl (8.4-10.2); Carbon Dioxide 26 mmol/L (22-30); Chloride 103 mmol/L (98-107); Glucose 91 mg/dl (70-99); Potassium 4.5 mmol/L (3.5-5.1); Sodium 135 mmol/L (135-145); Total Protein 9.0 g/dl (6.3-8.2); eGFR > 60.00
--- NOTE | 2025-06-29 17:36 | ED.GENMED ---
History of Present Illness
General
Chief Complaint: Post Operative Problem(s)
Time Seen by Provider: 06/29/25 17:36
History of Present Illness
History of Present Illness:
PAST MEDICAL HISTORY AND REVIEW OF OLD RECORDS
- The patient has history of diabetic neuropathy, is a former smoker, has A-fib on Eliquis.
Note:
CHIEF COMPLAINT(S)
Severe swelling and pain in the left foot.
HISTORY OF PRESENT ILLNESS
The patient is a 70-year-old male with a history of diabetes mellitus and diabetic neuropathy, presenting with significant swelling and pain in the left foot. The symptoms prompted him to seek medical attention. The patient reports having undergone
foot surgery in April of this year performed by Dr. Deluna, aimed at correcting bone deformities due to prior Charcot foot diagnosis. He has a history of multiple toe amputations on the left foot.
The current swelling is visibly more prominent in the left foot compared to the right, and the area is warm to the touch, raising concerns for possible infection, despite the absence of erythema and an associated wound. The patient is currently on
apixaban, an anticoagulant medication. The patients white blood cell count has returned with potentially concerning values, and there is consideration for a possible infection, as noted by the warmth of the left foot upon examination.
The patient indicates that the previous physician wanted further tests, and there was a suggestion for hospital admission for further evaluation and potential intravenous antibiotics. Upon examination, the patient reported pain, but at the time of
evaluation, it was not as severe as earlier.
PAST MEDICAL AND SURGICAL HISTORY
- Charcot foot
- Diabetic neuropathy
- Diabetes mellitus
- History of toe amputations on the left foot
- Recent foot surgery in April
EXTERNAL RECORDS REVIEWED
The patients prior surgical and treatment records from [facility], where the recent foot surgery was performed, will be reviewed for further insight into surgical details and postoperative management.
CHRONIC MEDICAL CONDITIONS SIGNIFICANTLY AFFECTING CARE
- Diabetes mellitus
- Diabetic neuropathy
SOCIAL HISTORY
- No relevant social history details were mentioned in the conversation.
REVIEW OF SYSTEMS
- Musculoskeletal: Swelling, pain, and warmth in the left foot
- Integumentary: No significant erythema noted on the foot
- Hematological: Patient is on apixaban
PHYSICAL EXAM
General: Alert, appears just slightly uncomfortable related the pain at the left foot
Skin: Warm to touch on the left foot diffusely with no erythema
Head: Normocephalic, atraumatic.
Neck: Supple, trachea midline.
Eye, Ears, Nose, Mouth, and Throat: Oral mucosa moist.
Cardiovascular: Normal peripheral perfusion, no edema.
Respiratory: Respirations are non-labored.
Gastrointestinal: Abdomen nondistended.
Back: Normal range of motion, normal alignment.
Musculoskeletal: Significant swelling and warmth in the left foot, pain upon physical examination.
Neurological: Alert and oriented to person, place, time, and situation, no focal neurological deficit observed.
Psychiatric: Cooperative, appropriate mood, and affect.
PROBLEM LIST
Acute:
- Swelling and pain of the left foot
- Warmth in the left foot, possible infection
Chronic:
- Charcot foot
- Diabetic neuropathy
- Diabetes mellitus
PLAN
- Coordinate with the hospitalist for possible admission for further tests and evaluation.
- Consider the need for intravenous antibiotics.
- Review previous hospital records and surgical details from [facility].
- Consider an ultrasound to rule out deep vein thrombosis given the patients symptoms and current anticoagulant therapy to assess the cause of the swelling.
DIFFERENTIAL DIAGNOSIS
The Differential Diagnosis includes, in no particular order and is not limited to:
- Diabetic foot infection
- Osteomyelitis
- Gout
- Deep vein thrombosis
- Peripheral artery disease
- Charcot joint disease exacerbation
- Cellulitis
- Venous insufficiency
- Lymphedema
- Trauma-related swelling.
LABS
- White count is normal, hemoglobin at baseline, chemistries unremarkable
UPDATE
-SUMMARY OF ENCOUNTER
The patient, a 70-year-old male with a history of diabetes mellitus and diabetic neuropathy, presented to the emergency department with severe swelling and pain in the left foot. The patients symptoms were concerning for possible infection, given a
history of recent foot surgery and warmth in the area. Initial management included administration of antibiotics and coordination for further investigations.
DISPOSITION
Admit to the hospital for diabetic foot infection and podiatry consultation.
ASSESSMENT
The patients presentation is suggestive of a diabetic foot infection that requires further evaluation and management.
EMERGENCY TREATMENTS ADMINISTERED
Intravenous vancomycin and piperacillin-tazobactam (Zosyn) were administered for suspected infection.
MANAGEMENT OF THE PATIENTS CARE WAS DISCUSSED WITH
The case was discussed with Dr. Boyd, who recommended an MRI and agreed with the antibiotic treatment. Dr. Stewart recommended inpatient MRI.
PLAN
- Admission to the hospital for further evaluation and management of diabetic foot infection.
- Obtain inpatient MRI for detailed assessment of the left foot.
- Continue antibiotics.
- Consult with podiatry for expert management of the foot condition.
INDEPENDENT REVIEW OF LABS AND INTERPRETATION OF TESTS
A possible infection is suggested by a potentially concerning white blood cell count; the foots warmth supports this suspicion. Ultrasound is planned, but DVT is of low suspicion.
FOLLOW-UP INSTRUCTIONS
Coordinate follow-up care and consultation with communications consultant as inpatient.
MEDICATION RECONCILIATION
- Administered vancomycin.
- Administered piperacillin-tazobactam (Zosyn).
MEDICAL DECISION MAKING
- Number and Complexity of Problems Addressed:
Chronic conditions affecting care includes Charcot foot, diabetic neuropathy, diabetes mellitus. Differential diagnosis includes diabetic foot infection, osteomyelitis, gout, deep vein thrombosis, peripheral artery disease, Charcot joint disease
exacerbation, cellulitis, venous insufficiency, lymphedema, trauma-related swelling.
- Data:
Category 1:
Reviewed previous surgical and treatment records from [facility]. Ultrasound ordered, but there is low suspicion for DVT.
Category 3:
Discussed management with Dr. Boyd and Dr. Stewart regarding the need for MRI and inpatient treatment.
- Risk:
Prescription medication was administered. Consideration was given for hospital admission for further evaluation and intravenous antibiotics.
DIAGNOSIS
- Diabetic foot infection, unspecified. (ICD-10: E11.621)
Phy Exam
Physical Exam
Physical Exam:
See HPI
Course
Orders/Labs/Results
Orders:
Orders
06/29/25 15:15
Complete Blood Count/With Diff Urgent
Comprehensive Metabolic Panel Urgent
06/29/25 17:54
CR Foot - Left Min 3 Views Urgent
Comment:
Reason For Exam: pain, charcot
06/29/25 17:55
Piperacillin/Tazo 3.375 Gram [Zosyn] 3.375 gram in 50 ml IV NOW
06/29/25 17:56
Vancomycin [Vancocin] 2,000 mg 0.9% Sodium Chloride 500 ml [Nss] 500 ml IV NOW
06/29/25 18:01
US Periph Venous LOWER Ext LT Urgent
Comment:
Reason For Exam: pain swelling
06/29/25 18:03
Lactic Acid Q4H
Comment: CANCEL 2nd LACTIC ACID IF 1st LACTIC ACID IS LESS THAN 2
Blood Culture Q30M
EDWIGE Source: Blood/Venous
Specimen Description:
06/29/25 18:10
Lower Ext Joint, Left Without MR [MR Left Le Joint Without] Urgent
Comment:
Reason For Exam: pain L foot and ankle; h/o Charcot; eval for infx
Recent pill cam endoscopy?: No
06/29/25 18:11
Blood Culture Q30M
EDWIGE Source: Blood/Venous
Specimen Description:
06/29/25 22:00
Lactic Acid Q4H
Comment: CANCEL 2nd LACTIC ACID IF 1st LACTIC ACID IS LESS THAN 2
Abnormal Lab Results
06/29/25
15:15
RBC 3.88 L 10^6/uL
(4.70-6.10)
Hgb 8.8 L g/dL
(13.0-18.0)
Hct 29.1 L %
(39.0-52.0)
MCV 75.0 L fL
(80.0-94.0)
MCH 22.7 L pg
(27.0-31.0)
MCHC 30.2 L g/dL
(33.0-37.0)
RDW 20.8 H %
(11.5-14.5)
Plt Count 404 H 10^3/uL
(130-400)
Absolute Neuts (auto) 7.7 H 10^3/uL
(1.4-6.5)
Absolute Lymphs (auto) 0.8 L 10^3/uL
(1.2-3.4)
Absolute Monos (auto) 0.7 H 10^3/uL
(0.1-0.6)
Neutrophils % 82.3 H %
(42.2-75.2)
Lymphocytes % 9.0 L %
(20.5-51.1)
Total Protein 9.0 H g/dl
(6.3-8.2)
Albumin 3.3 L g/dl
(3.5-5.0)
06/29/25 15:15
06/29/25 15:15
Vital Signs
Initial and Last Documented VS:
Initial Vital Signs
Temp Pulse Resp BP Pulse Ox
36.6 C 73 18 109/55 99
06/29/25 15:02 06/29/25 15:02 06/29/25 15:02 06/29/25 15:02 06/29/25 15:02
Last Documented Vital Signs
Temp Pulse Resp BP Pulse Ox
36.9 C 76 18 128/66 97
06/29/25 18:14 06/29/25 18:14 06/29/25 15:02 06/29/25 18:10 06/29/25 18:10
*Pulse Oximetry
SaO2: 99
Oxygen Mode of Delivery: Room air
Patient hypoxic: no
*Critical Care Note
Total Time (30-74mins, 75-104mins- exclusive of procedures): Not Applicable
ED Attending Note
-
Portions of this chart may have been created with voice recognition software.� Occasional wrong word or��sound alike� substitutions may have occurred due to the inherent limitations of voice recognition software.
Discharge Plan
Departure
Patient Disposition: Admit
Date of Disposition: 06/29/25
Time of Disposition: 18:23
Presentation/result/management discussed w/ accepting MD/DO: Hospitalist
Patient with high blood pressure during this ER visit?: Yes
Discharge Problem:
Diabetic infection of left foot
Prescriptions:
No Action
venlafaxine [Effexor XR] 75 mg Capsule,Extended Release 24hr
75 mg PO HS
atorvastatin 10 mg Tablet
10 mg PO QPM
amiodarone 200 mg Tablet
200 mg PO DAILY
valacyclovir 500 mg Tablet
500 mg PO HS
furosemide 20 mg Tablet
20 mg PO BID
metoprolol succinate 25 mg Tablet Extended Release 24 Hr
25 mg PO BID
Novolin 70-30 FlexPen U-100 100 unit/mL (70-30) Insulin Pen
40 unit SC DAILY
Novolin 70-30 FlexPen U-100 100 unit/mL (70-30) Insulin Pen
20 unit SC HS
Rx Instructions:
took 10 units 04/20/25
Eliquis 5 mg Tablet
5 mg PO BID
Mounjaro 7.5 mg/0.5 mL Pen Injector
7.5 mg SC QWEEK
Rx Instructions:
sundays
One-A-Day Men's 50 Plus 400-370 mcg Tablet
1 tab PO DAILY
albuterol sulfate [Ventolin HFA] 90 mcg/actuation Hfa Aerosol Inhaler
2 puff INHALATION 6XD PRN (Reason: asthma)
ferrous sulfate [FeroSul] 325 mg (65 mg iron) Tablet
325 mg PO DAILY Qty: 30 0RF
acetaminophen [Tylenol Extra Strength] 500 mg Tablet
1,000 mg PO TID 7 Days Qty: 42 0RF
oxycodone 15 mg Tablet
15 mg PO Q4HPRN PRN (Reason: severe pain) Qty: 18 0RF
oxycodone 10 mg Tablet
10 mg PO Q4HPRN PRN (Reason: MODERATE PAIN) Qty: 18 0RF
Referrals:
Stephanie Car MD [Family Provider]
Interventions
Interventions:
*Risk Screen - Suicide Last Done: 06/29/25 15:07
*General Assessment Last Done: 06/29/25 15:07
*Neglect/Abuse Screening Last Done: 06/29/25 18:20
*ED- Fall Risk Assessment Last Done: 06/29/25 18:20
*ED COVID-19 Vaccine History Last Done: 06/29/25 15:07
ED-Skin Assessment Last Done: 06/29/25 18:20
Discharge Date and Time
Print Language: KINYARWANDA
[2025-06-29 18:10] VITALS: BP 128/66
[2025-06-29] MEDS: ZOSYN 50 IV ×2 (18:12→23:03)
--- NOTE | 2025-06-29 19:05 | W.PN.UPDATE ---
Update Note
Progress Note Update
70M presents with left ankle abscess vs Charcot flare
- MRI L ankle
- continue abx
- npo at midnight, possible OR for I&D pending MRI results
- Strict NWB LLE
- will monitor
[2025-06-29] MEDS: VANCOCIN 540 MG IV (19:26)
--- NOTE | 2025-06-29 19:55 | HPS.HSE ---
Family Physician
-
Family Physician: Stephanie Car
Chief Complaint
-
L Foot Pain / Swelling
History of Present Illness
Patient is a 70y M with PMH significant for A-Fib, DM-II and Charcot foot who presents to ED complaining of pain and swelling in the L foot x 2 days. Patient underwent double arthrodesis and Achilles lengthening on 04/21/25. He states that he was
doing well following the surgery until yesterday evening when he developed severe pain in the L foot. He notes significant swelling as well. he has been ambulating with a boot and toe-touch weight bearing only. He denies any new injury or trauma.
He reports some nausea without emesis. No fevers / chills. No other systemic complaints.
Patient was seen by Podiatry today and sent to the ED for admission / evaluation.
Medical History
Past Medical History
Past Medical History: Reports Other
Additional Past Medical History:
Chronic Persistent Atrial Fibrillation
DM-II
Hypertension
Obesity
MELBA
BPH
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
Charcot Foot
Past Surgical History: Reports Other
Additional Past Surgical History:
Left Foot Double Arthrodesis and Achilles Lengthening (04/21/25)
A-Fib Ablation
Hernia Repair
TKA
Rotator Cuff Surgery
Appendectomy
Social History
Tobacco: Former Smoker (Remote history of smoking.)
Alcohol: Occasional
Drug: None
Family History
Family History: Not pertinent
Allergies / Home Medications
Allergies reflects when Allergies were last updated in [facility].
Home Medications with original date entered in [facility]
Allergy/Medication List:
Allergies
Allergy/AdvReac Type Severity Reaction Status Date / Time
erythromycin base Allergy Nausea / Verified 06/29/25 15:08
Vomiting
morphine Allergy Pharmacy Verified 06/29/25 15:08
to Review
Home Medications
amiodarone 200 mg tablet 200 mg PO DAILY 04/14/25
apixaban 5 mg tablet (Eliquis) 5 mg PO BID 04/14/25
atorvastatin 10 mg tablet 10 mg PO QPM 04/14/25
furosemide 20 mg tablet 20 mg PO DAILY 04/14/25
insulin NPH-regular 70-30 U-100 insulin 100 unit/mL subcutaneous pen (Novolin 70-30 FlexPen U-100 Insulin) 20 unit SC HS 04/14/25
insulin NPH-regular 70-30 U-100 insulin 100 unit/mL subcutaneous pen (Novolin 70-30 FlexPen U-100 Insulin) 40 unit SC DAILY 04/14/25
metoprolol succinate 25 mg tablet,extended release 24 hr 25 mg PO DAILY 04/14/25
tirzepatide 7.5 mg/0.5 mL subcutaneous pen injector (Mounjaro) 7.5 mg SC ESPINAL 04/14/25
valacyclovir 500 mg tablet 500 mg PO HS 04/14/25
venlafaxine 75 mg capsule,extended release 24 hr (Effexor XR) 75 mg PO HS 04/14/25
oxycodone 15 mg tablet 15 mg PO Q4HPRN PRN severe pain #18 tabs 04/26/25
oxycodone-acetaminophen 10 mg-325 mg tablet 1 tab PO Q6HPRN PRN severe pains 06/29/25
potassium chloride 10 mEq tablet,extended release 10 meq PO DAILY 06/29/25
Review of Systems
-
History Source: Patient
A 12 point ROS was completed and negative except as noted: Yes
Constitutional: Denies Fever, Fatigue or Chills
EENT: Denies Sore Throat
Respiratory: Denies Cough or Trouble Breathing
Cardiac: Denies Chest Pain or Palpitations
Abdomen/GI: Reports Nausea; Denies Abdominal Pain, Vomiting or Diarrhea
: Denies Dysuria or Flank Pain
Musculoskeletal: Reports Joint Pain, Joint Swelling and Edema
Neurological: Denies Dizzy or Headache
Psych: Denies Depression or Anxiety
Physical Exam
Vital Signs
Vital Signs
Temp Pulse Resp BP Pulse Ox
98.5 F 76 18 128/66 97
06/29/25 18:14 06/29/25 18:14 06/29/25 15:02 06/29/25 18:10 06/29/25 18:10
Physical Exam
General: Other (70y M in no acute distress.)
HEENT: Moist mucous membranes and PERRLA
Respiratory: Clear; No Wheezes, Rales or Rhonchi
Cardiac: S1/S2 and Irregular Rhythm; No Murmur
GI: Soft, Non Tender, Non Distended and Normal Bowel Sounds
Musculoskeletal: Other (LLE with edema to the knee. Marked edema of the L foot with increased warmth and areas of apparent fluctuance medailly and laterally at the ankle. No erythmea / induration. No bleeding or discharge.)
Neuro: AO x 3
Laboratory Results
-
06/29/25 15:15
06/29/25 15:15
Laboratory Results
Lactic Acid 0.8 mmol/L (0.7-2.0) 06/29/25 18:03
Total Bilirubin 0.5 mg/dl (0.2-1.3) 06/29/25 15:15
AST 32 U/L (17-59) 06/29/25 15:15
ALT 28 U/L (0-50) 06/29/25 15:15
Alkaline Phosphatase 103 U/L (38-126) 06/29/25 15:15
Impression/Plan
-
A/P: Patient is a 70y M with PMH significant for A-Fib, DM-II and Charcot foot s/p surgery on 04/21/25 who presents to ED complaining of L foot pain and swelling x 2 days.
Left Foot Infection / Charcot Foot
- Admit for further evaluation and treatment.
- Exam concerning with marked edema, increased warmth and areas of apparent fluctuance about the ankle.
- MRI is ordered to evaluate for underlying collection / abscess.
- Continue empiric IV abx for now.
- Follow up MRI results and then consider aspiration, wash-out, etc as needed.
- Operative cultures if any intervention is performed.
- Ortho / Podiatry consulted.
- Supportive care, pain control, etc.
Chronic Persistent Atrial Fibrillation
- Stable. s/p prior catheter ablation.
- Hold Eliquis acutely for possible OR.
- Continue metoprolol with holding parameters.
Chronic HF - Unknown Type
- Stable. Continue current Lasix dosing.
- Follow I/Os, daily weights, etc.
DM-II
- Stable. Basal : bolus insulin regimen for now.
- Update A1C.
Chronic Microcytic Anemia
- No significant improvement from post-op state 2 months ago.
- Check iron studies, etc.
- Follow for changes in H&H.
- No evidence of acute bleeding, etc at present.
Obesity due to excess calories
MELBA not on CPAP
- Affects all aspects of care.
- Encourage healthy diet and activity as able with goal of weight loss.
DVT Prophylaxis: SCDs for now. Resume Eliquis when OK with surgical service.
Code Status: Full
[2025-06-29 22:00] LABS: Iron 37 ug/dl (49-181)
[2025-06-29 22:10] LABS: Total Iron Binding Capacity 207 ug/dl (261-462)
[2025-06-29 22:50] LABS: Glucose - Point of Care 44 mg/dl (70-99)
--- NOTE | 2025-06-29 22:52 | PHA.VAN.IN ---
Assessment
- Assessment
Renal Function: Appears similar to baseline
Concomitant Antimicrobials: ZOSYN
AUC Dosing Plan
- Dosing Variables
Dosing Weight (kg): 110.5
Dosing CrCl (ml/min): 109
Vd coefficient (L/kg): 0.7
- Empiric Dosing
Initial / Loading Dose: 2000 MG IV ~1930
Maintenance Regimen: 1500 MG IV Q12H
Estimated AUC (mcg*h/mL): 438
Estimated Peak (mcg*h/mL): 28.5
Estimated Trough (mcg/ml): 10.5
Estimated Half Life (H): 7.3
- Monitoring
No levels ordered at this time: Consider levels in next few days
Pharmacokinetics Vancomycin I
- -
Patient Age: 70
Patient Sex: Male
Vancomycin Day #: 1
Indication: Diabetic Foot
Requesting Provider: Dr Delvin Yepez
Height / Weight:
Height 6 ft
Actual Weight 110.5 kg
Pertinent Past Medical History: DM-II and Charcot foot who presents to ED complaining of pain/swelling
- Vital Signs / Lab Results
Temp Pulse Resp BP Pulse Ox
98.5 F 76 18 128/66 97
06/29/25 18:14 06/29/25 18:14 06/29/25 15:02 06/29/25 18:10 06/29/25 18:10
Lab Results - Hematology
06/29/25
15:15
WBC 9.4
Lab Results - Chemistry
06/29/25
15:15
BUN 14
Creatinine 0.8
Albumin 3.3 L
06/29/25 06/29/25
18:03 22:00
Lactic Acid 0.8 Cancelled
[2025-06-29] MEDS: DEXTROSE 50% SYRINGE 12.5 GRAMS IV (22:53)
[2025-06-29 22:55] VITALS: BMI 30.7
[2025-06-29 22:56] VITALS: BP 101/70
[2025-06-29] MEDS: VALTREX 500 MG PO (22:58)
[2025-06-29] MEDS: EFFEXOR XR 75 MG PO (22:58)
[2025-06-29 23:13] LABS: Glucose - Point of Care 73 mg/dl (70-99)
[2025-06-29 23:27] VITALS: BMI 30.7
--- NOTE | 2025-06-29 23:35 | W.PN.UPDATE ---
Update Note
Progress Note Update
BS 44, Dextrose give and BS is 72. Patient is NPO and Lantus held. Will order D5NS 50 cc/hr. Admitting Dr. harvey.
BS 61>88>97
[2025-06-29] MEDS: D5/0.9% SODIUM CHLORIDE 1000 IV (23:51)
[2025-06-29 23:57] VITALS: BMI 29.8
[2025-06-30] VITALS (7 sets, daily range): BP systolic 122–135; BP diastolic 53–86; PULSE 65; O2SAT 97
[2025-06-30] MEDS: DEXTROSE 50% SYRINGE 12.5 GRAMS IV (01:21)
[2025-06-30 01:22] LABS: Glucose - Point of Care 61 mg/dl (70-99)
[2025-06-30 01:45] LABS: Glucose - Point of Care 99 mg/dl (70-99)
[2025-06-30 03:15] LABS: Glucose - Point of Care 88 mg/dl (70-99)
[2025-06-30] MEDS: TYLENOL 650 MG PO (03:35)
[2025-06-30] MEDS: ROXICODONE 10 MG PO (04:58)
[2025-06-30] MEDS: ZOSYN 50 IV ×2 (04:59→12:51)
[2025-06-30 05:44] LABS: Glucose - Point of Care 97 mg/dl (70-99)
[2025-06-30] MEDS: VANCOCIN 530 MG IV (05:53)
[2025-06-30] MEDS: DILAUDID 0.5 MG IV (06:10)
--- NOTE | 2025-06-30 07:40 | PTCARENOTE ---
pt is aaox3, no c/o left pain at this time. pt is NPO. pt is oriented to room w/ call sims in reach. bed alarm on.
Pt accucheck=44- administered Dextrose (see Mar) repeat accucheck=73. pt was asymptomatic. S/w AMMONIA DISTILLER Ravin -prdered D5NS at 50cc/hr. recheck 2hrs later accucheck=61 - administered dextrose. pt was asymptomatic. repeat accucheck=99. q2hr checks blood
sugars=88 then 97.
[2025-06-30 07:56] LABS: Glucose - Point of Care 111 mg/dl (70-99)
[2025-06-30] MEDS: NOVOLOG FLEXPEN-MODERATE RESISTANCE SC ×3 (08:06→18:40)
[2025-06-30 08:18] LABS: Hematocrit 23.7 % (39.0-52.0); Hemoglobin 7.2 g/dL (13.0-18.0); Mean Corp Hgb Conc. 30.4 g/dL (33.0-37.0); Mean Corpuscular Volume 73.8 fL (80.0-94.0); Platelet Count 308 10^3/uL (130-400); Red Cell Dist. Width 20.7 % (11.5-14.5)
[2025-06-30] MEDS: TOPROL XL 25 MG PO (08:21)
[2025-06-30] MEDS: LASIX 20 MG PO (08:21)
[2025-06-30] MEDS: PACERONE 200 MG PO (08:21)
[2025-06-30 08:48] LABS: Blood Urea Nitrogen 10 mg/dl (9-20); Calcium 7.9 mg/dl (8.4-10.2); Carbon Dioxide 23 mmol/L (22-30); Chloride 105 mmol/L (98-107); Estimated Creatinine Clearance 83 ml/min; Glucose 82 mg/dl (70-99); Potassium 3.9 mmol/L (3.5-5.1); Sodium 132 mmol/L (135-145); eGFR > 60.00
--- NOTE | 2025-06-30 09:51 | W.PN.HOSP.TC ---
Today's Communication/Plan
-
MRI
Follow-up final blood cultures
Echocardiogram.
IV antibiotics
Adjust analgesic regimen increasing oxycodone to 15 mg every 4 hours as needed for pain and addition of IV hydromorphone 1 mg every 3 hours for breakthrough episodes.
Hold standing dose of insulin while NPO monitor for recurrent hypoglycemia.
Hold Eliquis anticipating surgical intervention
Assessment / Plan
Assessment / Plan
Impression:
Patient is a 70y M with PMH significant for A-Fib, DM-II and Charcot foot s/p surgery on 04/21/25 who presents to ED complaining of L foot pain and swelling x 2 days.
Left foot/ankle abscess
Staphylococcal bacteremia
Conditions prior to admission:
Status post double arthrodesis and Achilles lengthening on 04/21/2025
History of of MRSA bacteremia with left shoulder septic arthritis surgically treated at [facility] completed 6 weeks of antibiotics January - February 2025.
Chronic persistent atrial fibrillation baseline anticoagulation with Eliquis
Chronic CHF unknown type.
IDDM.
Chronic microcytic anemia.
Obesity due to excessive calories
Obstructive sleep apnea on CPAP.
Plan
Left Foot Infection / Charcot Foot
Staphylococcal bacteremia pending final cultures
- Exam concerning with marked edema, increased warmth and areas of apparent fluctuance about the ankle.
- MRI is ordered to evaluate for underlying collection / abscess.
- Continue empiric IV abx for now. Vancomycin/Zosyn ID evaluation
-Echocardiogram
-Blood cultures for clearance
- Follow up MRI results and then consider aspiration, wash-out, etc as needed.
- Operative cultures if any intervention is performed.
- Ortho / Podiatry consulted.
- Supportive care, pain control, etc.
Chronic Persistent Atrial Fibrillation
- Stable. s/p prior catheter ablation.
- Hold Eliquis acutely for possible OR.
- Continue metoprolol, amiodarone with holding parameters.
Chronic HF - Unknown Type
- Stable. Euvolemic. Hold Lasix acutely.
- Follow I/Os, daily weights, etc.
�Update echocardiogram
DM-II
- Stable. Basal : bolus insulin regimen for now.
- Update A1C.
Chronic Microcytic Anemia
- No significant improvement from post-op state 2 months ago.
- Iron studies consistent with mild iron deficiency and anemia of chronic inflammation
- Follow for changes in H&H.
- No evidence of acute bleeding, etc at present.
- IV iron
Obesity due to excess calories
MELBA not on CPAP
- Affects all aspects of care.
- Encourage healthy diet and activity as able with goal of weight loss.
DVT Prophylaxis: SCDs for now. Resume Eliquis when OK with surgical service.
Anticipated Discharge: > 48 hours
Subjective/Interval History
-
Date of Service: June 30, 2025
Objective Data
-
Labs:
Laboratory Results
06/30/25
07:08
WBC 9.5
Hgb 7.2 L
Hct 23.7 L
Plt Count 308 D
Sodium 132 L
Potassium 3.9
Chloride 105
Carbon Dioxide 23
BUN 10
Creatinine 0.9
Glucose 82
Calcium 7.9 L
Vital Signs:
Vital Signs
Temp Pulse Resp BP Pulse Ox
98.2 F 70 16 122/63 96
06/30/25 08:12 06/30/25 08:12 06/30/25 08:12 06/30/25 08:12 06/30/25 08:12
I&O
06/29/25 06/30/25 07/01/25
06:59 06:59 06:59
Intake Total 890 / 890
Output Total 400 / 400 175 / 175
Balance 490 / 490 -175 / -175
Physical Exam
-
General: Well Developed and No Apparent Distress
HEENT: Normocephalic, Atraumatic and Moist Mucous Membranes
Respiratory: Clear to Auscultation
Cardiac: Regular Rhythm and S1/S2; Negative Murmur, Rub or Gallop
GI: Soft, Nontender, Nondistended and Normal Bowel Sounds; Negative Organomegaly
Rectal: Deferred by Provider
Musculoskeletal: No Clubbing, No Cyanosis, No Edema and Other (Left foot/ankle with edema erythema and fluctuance at the medial aspect of the joint.)
Skin: Negative Rash
Neuro: Nonfocal/Grossly Intact
--- NOTE | 2025-06-30 09:53 | PHA.VAN.FU ---
Vancomycin Assessment / Plan
- Assessment
Renal Function: Stable
WBC's are: WNL
Concomitant Antimicrobials: piperacillin/tazobactam; chronic valacyclovir
- Dosing Plan
Adjust Regimen to: Vanc 1250mg Q12H
New Regimen Predicts: AUC (514), Peak (30.5), Trough (14.1)
Dosing Comments: weight decreased by 10kg from admission
- Monitoring Plan
No level(s) ordered at this time: consider levels in next few days
- Follow Up
Pharmacy will continue to follow.
Vancomycin Follow UP
- -
Patient Age: 70
Patient Sex: Male
Vancomycin Day #: 2
Indication: Diabetic Foot
Requesting Provider: Dr Delvin Yepez
Pertinent Antimicrobial Allergies:
erythromycin - N/V
Height / Weight:
Height 6 ft
Actual Weight 99.592 kg
Pertinent Past Medical History: DM II
- Vital Signs / Lab Results
Temp Pulse Resp BP Pulse Ox
98.2 F 70 16 122/63 96
06/30/25 08:12 06/30/25 08:12 06/30/25 08:12 06/30/25 08:12 06/30/25 08:12
Lab Results - Hematology
06/29/25 06/30/25
15:15 07:08
WBC 9.4 9.5
Lab Results - Chemistry
06/29/25 06/30/25
15:15 07:08
BUN 14 10
Creatinine 0.8 0.9
Estimated Creat Clear 83
Albumin 3.3 L
06/29/25 06/29/25
18:03 22:00
Lactic Acid 0.8 Cancelled
Microbiology Results
06/29/25 18:03 Blood Culture - Preliminary
Blood/Venous Staph aureus MRSA
Gram Stain - Preliminary
--- NOTE | 2025-06-30 10:42 | CON.ID ---
Addendum entered and electronically signed by Sophie Willingham MD 06/30/25 15:14:
I personally performed a history and physical exam of the patient and discussed management with the resident. I reviewed the resident's note and agree with the documented findings and plan of care HPI/CC.
# Left foot/ankle hardware infection
.04/21/25 s/p arthrodesis and Achilles tendon lengthening
# MRSA bacteremia x 2 sets - foot source
# Fever
# Recent h/o MRSA bacteremia, septic arthritis of left shoulder s/p washout completed close to 12 weeks of IV abx at OSH (12/2024)
# DM
- TTE
- Repeat blood cultures
- Needs OR I+D, remove HW, if feasible, left foot
- Continue Vancomycin.
-DC Zosyn
- Follow temps.
Original Note:
Consultation
-
Date/Time Consultation Requested: 06/30/2025 09:44
Date/Time Consultation Performed: 06/30/2025 10:18
Requesting Provider: Osmar Briceno MD
Performing Provider: Keaton Carr MD ; Sophie Willingham MD
Reason for Consultation: Left foot infection
Chief Complaint / Past History
Chief Complaint
Left foot pain and swelling
History of Present Illness
This is a 70-year-old male with known past medical history of A-fib, diabetes type 2, charcot's foot presenting to the emergency department with complaints of pain and swelling in the left foot for the last 2 to 3 days. Patient underwent double
arthrodesis and Achilles lengthening on 04/21/2025. He reported that he was doing well following the surgery until 2 days ago when he developed severe pain in the left foot. This swelling also progressively increased. He has been ambulating with
boot and toe-touch weightbearing only. Denies any recent trauma or injury. Denies any other systemic symptoms including fevers chills, GI or urinary symptoms.
Patient was seen by the bar pointer who recommended to visit the emergency department.
In the ER patient was started on empiric vancomycin and Zosyn. Ortho was consulted.
Labs were without any leukocytosis lactic acid was within normal limits
Past History
Past Medical History: HTN and Other (Chronic Persistent Atrial Fibrillation, DM-II, Obesity, MELBA, BPH, History of UE DVT , Charcot Foot)
Past Surgical History: Appendectomy and Other (Left Foot Double Arthrodesis and Achilles Lengthening (04/21/25) , A-Fib Ablation, Hernia Repair, TKA, Rotator Cuff Surgery)
Allergy History:
erythromycin base Allergy (Verified 06/29/25 15:08)
Nausea / Vomiting
morphine Allergy (Verified 06/29/25 22:17)
'gives me a bad headache'
Medications Reviewed: Yes
Current Antibiotics:
vanco and zosyn
Social History
Tobacco: Former Smoker
Alcohol: Occasional
Drug: None
Family History
Family History: Not Pertinent
Review of Systems
Review of Systems
General: Negative Fever or Chills
Cardiovascular: Negative Chest Pain
Respiratory: Negative Dyspnea
Genital / Urological: Negative Dysuria
Hematologic: Negative Bleeding Problems
Musculoskeletal: Joint Pain and Joint Swelling
Neurological: Negative Headache
Vital Signs
Temp Pulse Resp BP Pulse Ox
98.2 F 70 16 122/63 96
06/30/25 08:12 06/30/25 08:12 06/30/25 08:12 06/30/25 08:12 06/30/25 08:12
Physical Exam
Physical Exam
Constitutional: No Acute Distress and Comfortable
Pulmonary: Clear and Non Labored
Gastrointestinal: Soft and Non Tender
Extremities: Edema (LLE) and Other (amputation of left great toe and 3rd toe)
Musculoskeletal: Joint Swelling, Joint Effusion and Other (L foot with increased warmth and areas of apparent fluctuance medailly and laterally at the ankle. mild erythema. No bleeding or discharge. well healed post surgical scar. )
Skin: Warm
Neurological: Awake, Alert and Oriented
Psychological: Calm
Lab / Diagnostic Study Results
06/30/25 07:08
06/30/25 07:08
Abs Immat Gran (auto) 0.0 10^3/uL (0-0.05) 06/29/25 15:15
Absolute Neuts (auto) 7.7 10^3/uL (1.4-6.5) H 06/29/25 15:15
Absolute Lymphs (auto) 0.8 10^3/uL (1.2-3.4) L 06/29/25 15:15
Absolute Monos (auto) 0.7 10^3/uL (0.1-0.6) H 06/29/25 15:15
Absolute Basos (auto) 0.1 10^3/uL (0-0.2) 06/29/25 15:15
Immature Gran % 0.4 % (0-0.5) 06/29/25 15:15
Neutrophils % 82.3 % (42.2-75.2) H 06/29/25 15:15
Lymphocytes % 9.0 % (20.5-51.1) L 06/29/25 15:15
Monocytes % 7.4 % (1.7-9.3) 06/29/25 15:15
Eosinophils % 0.4 % (0-6) 06/29/25 15:15
Basophils % 0.5 % (0-2) 06/29/25 15:15
Lactic Acid Cancelled 06/29/25 22:00
Microbiology Results
Micro:
06/30/25 10:18 Blood Culture - Pending
Blood/Venous
06/29/25 18:03 Blood Culture - Preliminary
Blood/Venous Staph aureus MRSA
Gram Stain - Preliminary
06/29/25 18:11 Blood Culture - Pending
Blood/Venous
CR Foot - Left 06/29/25:Postsurgical changes.
Diffuse soft tissue swelling.
Prominent soft tissue anterior to the tibiotalar articulation, suggesting a large tibiotalar joint effusion.
No definitive radiographic evidence for bone destruction/osteomyelitis.
US Periph Venous LOWER Ext LT 06/29/25: no evidence of DVT
Assessment / Plan
#Left ankle abscess versus Charcot flare.
#Bacteremia with Mrsa
#s/p left medial double arthrodesis posterior tibial tendon dysfunction- 04/21/2025
- MRI pending
- tentaive OR for I&D with podiatry
- continue iv vanc and zosyn for now (day 2); likely he will need prolong iv abx.
- fu on repeat blood cx
- BC with MRSA (11/04)
- check TTE
per patient he has mrsa bacteremia in 12/2024 complicated by left shoulder abscess and he was on iv abx for 12 weeks
[2025-06-30] MEDS: DILAUDID 1 MG IV ×5 (10:52→23:33)
[2025-06-30 12:04] LABS: Glucose - Point of Care 103 mg/dl (70-99)
--- NOTE | 2025-06-30 12:24 | CM ---
CM reviewed chart, patient seen bedside, initial assessment completed. Patient resides with his spouse in a two story home, first floor set up, 10 steps to enter home. Patient reports having a walker, wheelchair, and cane at home. Patient is current
with [facility], has had IV antibiotics in past (set up through [facility], unsure infusion agency). Patient reports recent SNF hx at [facility]. PCP Stephanie Car, pharmacy [facility], confirms prescription coverage. Patient
denies insecurities at home. Patient reports he will likely be returning to the OR, aware patient mat need SNF upon d/c. Patient remains on IV antibiotics. CM will continue to follow for all discharge planning needs.
Plan; TBD, will follow for recommendations
[2025-06-30 13:19] LABS: Glycohemoglobin (HgbA1c) 5.1 % (4.0-5.6)
[2025-06-30] MEDS: VALIUM INJECTION 2 MG IV (15:28)
[2025-06-30] MEDS: FERRLECIT 110 MG IV (17:10)
[2025-06-30] MEDS: LIPITOR 10 MG PO (17:22)
[2025-06-30] MEDS: FLUSH (NSS) 1 FLUSH IV (17:39)
[2025-06-30 18:21] LABS: Glucose - Point of Care 90 mg/dl (70-99)
[2025-06-30] MEDS: VANCOCIN 275 MG IV (18:41)
[2025-06-30 19:40] LABS: Hepatitis C Antibody Negative (Negative)
[2025-06-30 20:59] LABS: Glucose - Point of Care 157 mg/dl (70-99)
[2025-06-30] MEDS: VALTREX 500 MG PO (21:11)
[2025-06-30] MEDS: EFFEXOR XR 75 MG PO (21:11)
[2025-06-30 23:36] LABS: Glucose - Point of Care 135 mg/dl (70-99)
[2025-07-01] VITALS (12 sets, daily range): BP systolic 100–137; BP diastolic 50–69; BMI 31.0
[2025-07-01 03:43] LABS: Glucose - Point of Care 117 mg/dl (70-99)
[2025-07-01] MEDS: DILAUDID 1 MG IV ×5 (03:54→22:56)
[2025-07-01 04:13] LABS: Hematocrit 25.8 % (39.0-52.0); Hemoglobin 8.0 g/dL (13.0-18.0); Mean Corp Hgb Conc. 31.0 g/dL (33.0-37.0); Mean Corpuscular Volume 74.8 fL (80.0-94.0); Nucleated Red Blood Cells % 0 % (-); Platelet Count 313 10^3/uL (130-400); Red Cell Dist. Width 20.8 % (11.5-14.5)
[2025-07-01 04:35] LABS: Blood Urea Nitrogen 10 mg/dl (9-20); Calcium 8.2 mg/dl (8.4-10.2); Carbon Dioxide 26 mmol/L (22-30); Chloride 106 mmol/L (98-107); Estimated Creatinine Clearance 93 ml/min; Glucose 109 mg/dl (70-99); Potassium 4.6 mmol/L (3.5-5.1); Sodium 137 mmol/L (135-145); eGFR > 60.00
[2025-07-01] MEDS: VANCOCIN 275 MG IV ×2 (05:35→18:15)
[2025-07-01] MEDS: D5/0.9% SODIUM CHLORIDE 1000 IV (05:35)
[2025-07-01 06:08] LABS: Glucose - Point of Care 138 mg/dl (70-99)
[2025-07-01] MEDS: NOVOLOG FLEXPEN-MODERATE RESISTANCE SC ×3 (06:55→17:53)
[2025-07-01] MEDS: PACERONE 200 MG PO (07:58)
[2025-07-01] MEDS: TOPROL XL 25 MG PO (07:58)
--- NOTE | 2025-07-01 09:07 | PHA.VAN.FU ---
Vancomycin Assessment / Plan
- Assessment
Renal Function: Stable
WBC's are: WNL
In the past 24 hrs, patient has been: Afebrile
- Dosing Plan
Continue: Vanc 1250mg Q12H
- Monitoring Plan
No level(s) ordered at this time: consider levels in next few days
- Follow Up
Pharmacy will continue to follow.
Vancomycin Follow UP
- -
Patient Age: 70
Patient Sex: Male
Vancomycin Day #: 3
Indication: Diabetic Foot
Requesting Provider: Dr Delvin Yepez
Pertinent Antimicrobial Allergies:
erythromycin - N/V
Height / Weight:
Height 6 ft
Actual Weight 103.532 kg
Pertinent Past Medical History: DM II
- Vital Signs / Lab Results
Temp Pulse Resp BP Pulse Ox
97.5 F 71 16 137/67 96
07/01/25 07:45 07/01/25 07:58 07/01/25 07:45 07/01/25 07:58 07/01/25 07:45
Lab Results - Hematology
06/29/25 06/30/25 07/01/25
15:15 07:08 03:53
WBC 9.4 9.5 8.0
Lab Results - Chemistry
06/29/25 06/30/25 07/01/25
15:15 07:08 03:53
BUN 14 10 10
Creatinine 0.8 0.9 0.8
Estimated Creat Clear 83 93
Albumin 3.3 L
06/29/25 06/29/25
18:03 22:00
Lactic Acid 0.8 Cancelled
Microbiology Results
06/29/25 18:11 Blood Culture - Preliminary
Blood/Venous Positive culture in progress
Gram Stain - Final
06/29/25 18:03 Blood Culture - Preliminary
Blood/Venous Staph aureus MRSA
Gram Stain - Final
--- NOTE | 2025-07-01 09:07 | W.PN.ID1 ---
Addendum entered and electronically signed by Sophie Willingham MD 07/01/25 15:41:
I saw and evaluated the patient. I reviewed the resident�s note and agree with findings and plan as documented in the resident�s note.
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
.04/21/25 s/p arthrodesis and Achilles tendon lengthening
# MRSA bacteremia x 2 sets - foot source
# Fever resolved
# Recent h/o MRSA bacteremia, septic arthritis of left shoulder s/p washout completed close to 12 weeks of IV abx at OSH (12/2024)
# DM with Charcot arthropathy
- Ankle MRI: large tibiotalar joint effusion
- TTE: echodensity AV likely calcification
- Repeat blood cultures neg to date
- To OR today.
- Continue Vancomycin.
- Anticipate 6 weeks of IV abx.
Original Note:
Date of Service
Date of Service: July 01, 2025
Today's Communication
Continue vancomycin
Follow temperature and WBC
OR with podiatry today; remove hardware if feasible
Assessment / Plan
# Left foot/ankle hardware infection
# Bacteremia with Mrsa
# s/p left medial double arthrodesis posterior tibial tendon dysfunction- 04/21/2025
# fever
# mrsa bacteremia in 12/2024 complicated by left shoulder abscess and he was on iv abx for 12 weeks
# DM
- OR for I&D with podiatry today
- continue iv vanc for now (day 3); he will need prolong iv abx.
- fu on repeat blood cx; NGTD
- BC with MRSA (2/2)
- Noted TTE results reviewed; no obvious vegetations
Chief Complaint
-: Other (Left foot pain and swelling)
Subjective / Review of Systems
Review of Systems: No Fever, No Chills, No Headache, No Cough, No Chest Pain, No Palpitations, No Abdominal Pain, No Nausea, No Vomiting and Joint Pain (Left foot)
Vital Signs / Physical Exam
Vital Signs
Vital Signs
Temp Pulse Resp BP Pulse Ox
97.5 F 71 16 137/67 96
07/01/25 07:45 07/01/25 07:58 07/01/25 07:45 07/01/25 07:58 07/01/25 07:45
Physical Exam
Constitutional: Comfortable
Cardiovascular: Regular Rate and S1/S2
Pulmonary: Clear; Negative Wheezes
Gastrointestinal: Soft and Non Tender
Extremities: Edema
Musculoskeletal: Joint Swelling, Joint Effusion and Other ((L foot with increased warmth and areas of apparent fluctuance medailly and laterally at the ankle. mild erythema. No bleeding or discharge. well healed post surgical scar. amputation of
left great toe and 3rd toe)
Skin: Warm
Neurological: Awake, Alert and Oriented
Psychological: Calm
Objective Data
Lab Data
Lab Results
07/01/25 03:53
07/01/25 03:53
Estimated Creat Clear 93 ml/min 07/01/25 03:53
Lactic Acid Cancelled 06/29/25 22:00
Total Bilirubin 0.5 mg/dl (0.2-1.3) 06/29/25 15:15
AST 32 U/L (17-59) 06/29/25 15:15
ALT 28 U/L (0-50) 06/29/25 15:15
Alkaline Phosphatase 103 U/L (38-126) 06/29/25 15:15
Most recent labs reviewed.
Micro Results:
06/29/25 18:11 Blood Culture - Preliminary
Blood/Venous Positive culture in progress
Gram Stain - Final
06/29/25 18:03 Blood Culture - Preliminary
Blood/Venous Staph aureus MRSA
Gram Stain - Final
06/30/25 10:47 Blood Culture - Pending
Blood/Venous
06/30/25 10:18 Blood Culture - Pending
Blood/Venous
CR Foot - Left 06/29/25:Postsurgical changes.
Diffuse soft tissue swelling.
Prominent soft tissue anterior to the tibiotalar articulation, suggesting a large tibiotalar joint effusion.
No definitive radiographic evidence for bone destruction/osteomyelitis.
US Periph Venous LOWER Ext LT 06/29/25: no evidence of DVT
MR Left Ankle Without 06/30/2025:
Large tibiotalar joint effusion with prominent anterior extension as well as prominent anterolateral, lateral, and posterolateral extension, extending superficial to the fibula and the peroneal tendons. Findings are suspicious for infected joint
effusion/septic arthritis. As warranted, consideration for further evaluation with arthrocentesis.
Fairly extensive marrow signal intensity abnormality with decreased T1 and increased T2 and STIR signal, as described above. This marrow signal intensity abnormality is nonspecific, with main differential considerations of osteomyelitis and/or
neuropathic arthropathy. Consideration for follow-up radiography to assess for any progressive bony destruction.
Subcutaneous edema, greater dorsally. No evidence for soft tissue abscess.
MRI: Report Reviewed
[2025-07-01 12:21] LABS: Glucose - Point of Care 112 mg/dl (70-99)
[2025-07-01] MEDS: FERRLECIT 110 MG IV (14:05)
--- NOTE | 2025-07-01 14:09 | W.PN.HOSP.TC ---
Today's Communication/Plan
-
IV abx
Stop IV Iron
OR today, f/u cultures
Assessment / Plan
Assessment / Plan
Impression:
Patient is a 70y M with PMH significant for A-Fib, DM-II and Charcot foot s/p surgery on 04/21/25 who presents to ED complaining of L foot pain and swelling x 2 days.
Left foot/ankle abscess
Staphylococcal bacteremia
Conditions prior to admission:
Status post double arthrodesis and Achilles lengthening on 04/21/2025
History of of MRSA bacteremia with left shoulder septic arthritis surgically treated at [facility] completed 6 weeks of antibiotics January - February 2025.
Chronic persistent atrial fibrillation baseline anticoagulation with Eliquis
Chronic CHF unknown type.
IDDM.
Chronic microcytic anemia.
Obesity due to excessive calories
Obstructive sleep apnea on CPAP.
Plan
Left Foot Infection / Charcot Foot
Staphylococcal bacteremia pending final cultures
Infected joint effusion/septic arthritis
Possible Osteomyelitis of the Left foot
- Exam concerning with marked edema, increased warmth and areas of apparent fluctuance about the ankle.
-MRI as above
- Continue empiric IV abx for now. Vancomycin; DC zosyn
-Echocardiogram - Echodensity on the aortic surface of the left coronary cusp, likely calcification though a vegetation cannot be excluded with certainty; No obvious vegetation- therefore will hold on further LYDIA at this time; other source (foot) is
most likely culprit
-Blood cultures for clearance
-As per Podiatry today - aspiration, wash-out,
- Operative cultures if any intervention is performed.
- Ortho / Podiatry consulted.
- Supportive care, pain control, etc.
Chronic Persistent Atrial Fibrillation
- Stable. s/p prior catheter ablation.
- Hold Eliquis acutely for possible OR.
- Continue metoprolol, amiodarone with holding parameters.
Chronic HF - Unknown Type
- Stable. Euvolemic. Hold Lasix acutely.
- Follow I/Os, daily weights, etc.
�EF stable
DM-II
- Stable. Basal : bolus insulin regimen for now.
- Update A1C.
Chronic Microcytic Anemia
- No significant improvement from post-op state 2 months ago.
- Iron studies consistent with mild iron deficiency and anemia of chronic inflammation
- Follow for changes in H&H.
- No evidence of acute bleeding, etc at present.
- Holding on IV iron with active infection
Obesity due to excess calories
MELBA not on CPAP
- Affects all aspects of care.
- Encourage healthy diet and activity as able with goal of weight loss.
DVT Prophylaxis: SCDs for now. Resume Eliquis when OK with surgical service.
Total time spent on today's encounter was 51 minutes which included time spent in counseling the patient/family regarding diagnosis and treatment plan as listed above, goals of care, and symptom management. Case was discussed with nursing staff,
specialists, and care coordinators/case management. All labs and imaging personally reviewed by me. Remainder the time spent in detailed review of previous records, lab data, imaging, and other medical provider documentation.
Anticipated Discharge: > 48 hours
Subjective/Interval History
-
Date of Service: July 01, 2025
no acute events
Objective Data
-
Labs:
Laboratory Results
07/01/25
03:53
WBC 8.0
Hgb 8.0 L
Hct 25.8 L
Plt Count 313
Sodium 137
Potassium 4.6
Chloride 106
Carbon Dioxide 26
BUN 10
Creatinine 0.8
Glucose 109 H
Calcium 8.2 L
Vital Signs:
Vital Signs
Temp Pulse Resp BP Pulse Ox
97.7 F 66 16 134/67 97
07/01/25 11:34 07/01/25 11:34 07/01/25 11:34 07/01/25 11:34 07/01/25 11:34
I&O
06/30/25 07/01/25 07/02/25
06:59 06:59 06:59
Intake Total 890 / 890 2745 / 2745 60 / 60
Output Total 400 / 400 2024 / 2024 5300 / 5300
Balance 490 / 490 720 / 720 -5240 / -5240
Review of Systems
-
History Source: Patient
All other systems: Not reviewed unless documented
Physical Exam
-
General: Well Developed and No Apparent Distress
HEENT: Normocephalic, Atraumatic and Moist Mucous Membranes
Respiratory: Clear to Auscultation
Cardiac: Regular Rhythm and S1/S2; Negative Murmur, Rub or Gallop
GI: Soft, Nontender, Nondistended and Normal Bowel Sounds; Negative Organomegaly
Rectal: Deferred by Provider
Musculoskeletal: No Clubbing, No Cyanosis, No Edema and Other (Left foot/ankle with edema erythema and fluctuance at the medial aspect of the joint.)
Skin: Negative Rash
Neuro: Nonfocal/Grossly Intact
--- NOTE | 2025-07-01 15:06 | CM ---
Patient current with [facility]. Spoke with Cesilia in their admissions dept. to provide update.
Plan: Case management will continue to follow and assist with discharge planning. Home with [facility].
--- NOTE | 2025-07-01 17:20 | W.PN.UPDATE ---
Update Note
Progress Note Update
70M s/p left ankle arthrotomy w/ Ankle joint pinning
- does not appear clinically infected
- strict NWB LLE
- cultures x2 left ankle
- drain strip q4
- no further sx this admission
- PT/OT
- will monitor
[2025-07-01 17:24] LABS: Glucose - Point of Care 107 mg/dl (70-99)
[2025-07-01] MEDS: SUBLIMAZE 50 MCG IV ×2 (17:40→17:50)
[2025-07-01] MEDS: LIPITOR 10 MG PO (18:15)
--- NOTE | 2025-07-01 18:36 | PTCARENOTE ---
Pt back from PACU, VSS, ordered dinner, pain well controlled, L foot in dressing w/ LLUVIA wrap, + popliteal pulse, L GULSHAN drain w/ serosang drainage noted.
[2025-07-01] MEDS: EFFEXOR XR 75 MG PO (21:00)
[2025-07-01] MEDS: VALTREX 500 MG PO (21:00)
[2025-07-01 21:42] LABS: Glucose - Point of Care 201 mg/dl (70-99)
[2025-07-02] VITALS (7 sets, daily range): BP systolic 107–139; BP diastolic 50–104; BMI 31.0
[2025-07-02] MEDS: DILAUDID 1 MG IV ×8 (02:10→23:27)
[2025-07-02] MEDS: VANCOCIN 275 MG IV ×2 (05:10→16:51)
[2025-07-02 08:11] LABS: Hematocrit 21.4 % (39.0-52.0); Hemoglobin 6.4 g/dL (13.0-18.0); Mean Corp Hgb Conc. 29.9 g/dL (33.0-37.0); Mean Corpuscular Volume 76.4 fL (80.0-94.0); Platelet Count 326 10^3/uL (130-400); Red Cell Dist. Width 20.7 % (11.5-14.5)
[2025-07-02 08:15] LABS: Blood Urea Nitrogen 9 mg/dl (9-20); Calcium 7.8 mg/dl (8.4-10.2); Carbon Dioxide 29 mmol/L (22-30); Chloride 106 mmol/L (98-107); Estimated Creatinine Clearance 105 ml/min; Glucose 135 mg/dl (70-99); Potassium 3.8 mmol/L (3.5-5.1); Sodium 137 mmol/L (135-145); eGFR > 60.00
[2025-07-02] MEDS: PACERONE 200 MG PO (08:15)
[2025-07-02] MEDS: TOPROL XL 25 MG PO (08:16)
[2025-07-02 08:21] LABS: Glucose - Point of Care 138 mg/dl (70-99)
[2025-07-02] MEDS: NOVOLOG FLEXPEN-MODERATE RESISTANCE SC (08:22)
--- NOTE | 2025-07-02 09:15 | PHA.VAN.FU ---
Vancomycin Assessment / Plan
- Assessment
Renal Function: Stable
WBC's are: Stable
In the past 24 hrs, patient has been: Afebrile
- Dosing Plan
Continue: VANCO 1250MG Q24H
- Monitoring Plan
Peak Level: 07/02 @2100
Trough Level: 07/03 @0530
- Follow Up
Pharmacy will continue to follow.
Vancomycin Follow UP
- -
Patient Age: 70
Patient Sex: Male
Vancomycin Day #: 4
Indication: Diabetic Foot
Requesting Provider: Dr Delvin Yepez
Pertinent Antimicrobial Allergies:
erythromycin - N/V
Height / Weight:
Height 6 ft
Actual Weight 103.464 kg
Pertinent Past Medical History: DM II
- Vital Signs / Lab Results
Temp Pulse Resp BP Pulse Ox
98.0 F 76 16 107/56 97
07/02/25 07:26 07/02/25 07:26 07/02/25 07:26 07/02/25 07:26 07/02/25 07:26
Lab Results - Hematology
06/29/25 06/30/25 07/01/25
15:15 07:08 03:53
WBC 9.4 9.5 8.0
07/02/25
07:20
WBC 9.5
Lab Results - Chemistry
06/29/25 06/30/25 07/01/25
15:15 07:08 03:53
BUN 14 10 10
Creatinine 0.8 0.9 0.8
Estimated Creat Clear 83 93
Albumin 3.3 L
07/02/25
07:20
BUN 9
Creatinine 0.8
Estimated Creat Clear 105
Albumin
06/29/25 06/29/25
18:03 22:00
Lactic Acid 0.8 Cancelled
Microbiology Results
07/01/25 16:34 Gram Stain - Preliminary
Ankle - Left
06/29/25 18:03 Blood Culture - Preliminary
Blood/Venous Staph aureus MRSA
Gram Stain - Final
06/30/25 10:47 Blood Culture - Preliminary
Blood/Venous No Growth in 24 hours- Final report to follow
06/30/25 10:18 Blood Culture - Preliminary
Blood/Venous No Growth in 24 hours- Final report to follow
06/29/25 18:11 Blood Culture - Preliminary
Blood/Venous Staph aureus MRSA
Gram Stain - Final
--- NOTE | 2025-07-02 10:33 | W.PN.UPDATE ---
Update Note
Progress Note Update
70M s/p left ankle arthrotomy w/ Ankle joint pinning. Pt doing well this AM, denies any significnat pain. no calf pain. Discussed etiology of Charcot arthropathy with patient with all questions answered.
- does not appear clinically infected
- strict NWB LLE
- cultures x2 left ankle
- drain strip q4
- no further sx this admission, will follow OR cx
- PT/OT
- will monitor
[2025-07-02 11:22] LABS: Glucose - Point of Care 158 mg/dl (70-99)
[2025-07-02] MEDS: NOVOLOG FLEXPEN-MODERATE RESISTANCE 1 UNITS SC ×2 (12:03→16:43)
--- NOTE | 2025-07-02 13:19 | W.PN.HOSP.TC ---
Addendum entered and electronically signed by Ricardo No MD 07/02/25 13:41:
#Acute blood loss anemia
� Most likely perioperative loss
� Monitor hemoglobin
#Holding Eliquis in setting of acute blood loss anemia, once hemoglobin stable, can resume Eliquis
Original Note:
Today's Communication/Plan
-
f/u cultures
abx
blood culture clearance
restart eliquis
Assessment / Plan
Assessment / Plan
Impression:
Patient is a 70y M with PMH significant for A-Fib, DM-II and Charcot foot s/p surgery on 04/21/25 who presents to ED complaining of L foot pain and swelling x 2 days.
Left foot/ankle abscess
Staphylococcal bacteremia
Conditions prior to admission:
Status post double arthrodesis and Achilles lengthening on 04/21/2025
History of of MRSA bacteremia with left shoulder septic arthritis surgically treated at [facility] completed 6 weeks of antibiotics January - February 2025.
Chronic persistent atrial fibrillation baseline anticoagulation with Eliquis
Chronic CHF unknown type.
IDDM.
Chronic microcytic anemia.
Obesity due to excessive calories
Obstructive sleep apnea on CPAP.
Plan
Left Foot Infection / Charcot Foot
Staphylococcal bacteremia pending final cultures
Infected joint effusion/septic arthritis
Possible Osteomyelitis of the Left foot
-s/p left ankle arthrotomy w/ Ankle joint pinning 07/01
- Continue IV abx for now. Vancomycin; DC zosyn
-Wound culture follow up - [facility]
-Consideration of wound vac next week if viable
-Drain in place
-Echocardiogram - Echodensity on the aortic surface of the left coronary cusp, likely calcification though a vegetation cannot be excluded with certainty; No obvious vegetation- therefore will hold on further LYDIA at this time; other source (foot) is
most likely culprit
-Blood cultures for clearance
-Podiatry on board
-- Ortho / Podiatry consulted.
- Supportive care, pain control, etc.
Chronic Persistent Atrial Fibrillation
- Stable. s/p prior catheter ablation.
- can restart eliquis
- Continue metoprolol, amiodarone with holding parameters.
Chronic HF - Unknown Type
- Stable. Euvolemic. Hold Lasix acutely.
- Follow I/Os, daily weights, etc.
�EF stable
DM-II
- Stable. Basal : bolus insulin regimen for now.
- Update A1C.
Chronic Microcytic Anemia
- No significant improvement from post-op state 2 months ago.
- Iron studies consistent with mild iron deficiency and anemia of chronic inflammation
- Follow for changes in H&H.
- No evidence of acute bleeding, etc at present.
- Holding on IV iron with active infection
Obesity due to excess calories
MELBA not on CPAP
- Affects all aspects of care.
- Encourage healthy diet and activity as able with goal of weight loss.
DVT Prophylaxis: Resume Eliquis
Anticipated Discharge: > 48 hours
Subjective/Interval History
-
Date of Service: July 02, 2025
s/p left ankle arthrotomy w/ Ankle joint pinning yesterday evening
Objective Data
-
Labs:
Laboratory Results
07/02/25
07:20
WBC 9.5
Hgb 6.4 L*
Hct 21.4 L
Plt Count 326
Sodium 137
Potassium 3.8
Chloride 106
Carbon Dioxide 29
BUN 9
Creatinine 0.8
Glucose 135 H
Calcium 7.8 L
Vital Signs:
Vital Signs
Temp Pulse Resp BP Pulse Ox
98 F 73 20 118/54 95
07/02/25 13:04 07/02/25 13:04 07/02/25 13:04 07/02/25 13:04 07/02/25 13:04
I&O
07/01/25 07/02/25 07/03/25
06:59 06:59 06:59
Intake Total 2745 / 2745 420 / 420 250 / 250
Output Total 2024 5920 / 5920
Balance 720 / 720 -5500 / -5500 250 / 250
Review of Systems
-
History Source: Patient
All other systems: Not reviewed unless documented
Physical Exam
-
General: Well Developed and No Apparent Distress
HEENT: Normocephalic, Atraumatic and Moist Mucous Membranes
Respiratory: Clear to Auscultation
Cardiac: Regular Rhythm and S1/S2; Negative Murmur, Rub or Gallop
GI: Soft, Nontender, Nondistended and Normal Bowel Sounds; Negative Organomegaly
Rectal: Deferred by Provider
Musculoskeletal: No Clubbing, No Cyanosis, No Edema and Other (Left foot/ankle wrapped; Drain in place)
Skin: Negative Rash
Neuro: Nonfocal/Grossly Intact
Data Reviewed
-
Diagnostic Radiology: Report Reviewed by me
Ultrasound: Report Reviewed by me
MRI: Report Reviewed by me
Labs: Labs Reviewed by me
--- NOTE | 2025-07-02 14:13 | W.PN.ID1 ---
Date of Service
Date of Service: July 02, 2025
Today's Communication
Continue abx.
Assessment / Plan
# Left foot/ankle hardware infection
- S/P OR debridement 07/01/25
- OR cultures with MRSA
# Bacteremia with MRSA
# s/p left medial double arthrodesis posterior tibial tendon dysfunction- 04/21/2025
# fever
# mrsa bacteremia in 12/2024 complicated by left shoulder abscess and he was on iv abx for 12 weeks
# DM
Recommendations:
- s/p OR for I&D left ankle 07/01/25
- continue iv vanc for now (d#4); he will need prolong iv abx.
- fu on repeat blood cx; NGTD
- BC with MRSA (12/05)
- Noted TTE results reviewed; no obvious vegetations
Chief Complaint
-: Other (Left foot pain and swelling)
Subjective / Review of Systems
Review of Systems: No Fever and No Chills
Vital Signs / Physical Exam
Vital Signs
Vital Signs
Temp Pulse Resp BP Pulse Ox
98 F 73 20 118/54 95
07/02/25 13:04 07/02/25 13:04 07/02/25 13:04 07/02/25 13:04 07/02/25 13:04
Physical Exam
Constitutional: No Acute Distress, Comfortable and Non-toxic
Eyes: Sclera Anicteric
Pulmonary: Non Labored
Gastrointestinal: Non Distended
Extremities: Other (LLE splinted and wrapped in LLUVIA.)
Neurological: Awake and Alert
Psychological: Calm
Objective Data
Lab Data
Lab Results
07/02/25 07:20
07/02/25 07:20
Estimated Creat Clear 105 ml/min 07/02/25 07:20
Lactic Acid Cancelled 06/29/25 22:00
Total Bilirubin 0.5 mg/dl (0.2-1.3) 06/29/25 15:15
AST 32 U/L (17-59) 06/29/25 15:15
ALT 28 U/L (0-50) 06/29/25 15:15
Alkaline Phosphatase 103 U/L (38-126) 06/29/25 15:15
Most recent labs reviewed.
Micro Results:
07/01/25 16:34 Anaerobic Culture - Preliminary
Ankle - Left Culture pending. Anaerobic cultures are examined after 3
days incubation. Additional information to follow.
07/01/25 16:34 Wound Culture - Preliminary
Ankle - Left Staphylococcus aureus
Gram Stain - Preliminary
06/30/25 10:47 Blood Culture - Preliminary
Blood/Venous No Growth in 48 hours- Final report to follow
06/30/25 10:18 Blood Culture - Preliminary
Blood/Venous No Growth in 48 hours- Final report to follow
06/29/25 18:11 Blood Culture - Final
Blood/Venous Staph aureus MRSA
Gram Stain - Final
06/29/25 18:03 Blood Culture - Final
Blood/Venous Staph aureus MRSA
Gram Stain - Final
07/02/25 07:55 Blood Culture - Pending
Blood/Venous
07/02/25 07:19 Blood Culture - Pending
Blood/Venous
CR Foot - Left 06/29/25:Postsurgical changes.
Diffuse soft tissue swelling.
Prominent soft tissue anterior to the tibiotalar articulation, suggesting a large tibiotalar joint effusion.
No definitive radiographic evidence for bone destruction/osteomyelitis.
US Periph Venous LOWER Ext LT 06/29/25: no evidence of DVT
MR Left Ankle Without 06/30/2025:
Large tibiotalar joint effusion with prominent anterior extension as well as prominent anterolateral, lateral, and posterolateral extension, extending superficial to the fibula and the peroneal tendons. Findings are suspicious for infected joint
effusion/septic arthritis. As warranted, consideration for further evaluation with arthrocentesis.
Fairly extensive marrow signal intensity abnormality with decreased T1 and increased T2 and STIR signal, as described above. This marrow signal intensity abnormality is nonspecific, with main differential considerations of osteomyelitis and/or
neuropathic arthropathy. Consideration for follow-up radiography to assess for any progressive bony destruction.
Subcutaneous edema, greater dorsally. No evidence for soft tissue abscess.
[2025-07-02 16:15] LABS: Glucose - Point of Care 155 mg/dl (70-99)
[2025-07-02] MEDS: MIRALAX 17 GRAMS PO (16:45)
[2025-07-02] MEDS: LIPITOR 10 MG PO (16:45)
[2025-07-02] MEDS: EFFEXOR XR 75 MG PO (20:39)
[2025-07-02] MEDS: VALTREX 500 MG PO (20:39)
[2025-07-02 21:26] LABS: Glucose - Point of Care 141 mg/dl (70-99)
[2025-07-03] VITALS (8 sets, daily range): BP systolic 115–142; BP diastolic 51–72; PULSE 69; O2SAT 98; BMI 30.4
[2025-07-03] MEDS: DILAUDID 1 MG IV ×7 (02:54→23:37)
[2025-07-03 05:28] LABS: Hematocrit 24.2 % (39.0-52.0); Hemoglobin 7.4 g/dL (13.0-18.0); Mean Corp Hgb Conc. 30.6 g/dL (33.0-37.0); Mean Corpuscular Volume 77.3 fL (80.0-94.0); Platelet Count 303 10^3/uL (130-400); Red Cell Dist. Width 20.4 % (11.5-14.5)
[2025-07-03 05:55] LABS: Blood Urea Nitrogen 5 mg/dl (9-20); Calcium 8.0 mg/dl (8.4-10.2); Carbon Dioxide 31 mmol/L (22-30); Chloride 107 mmol/L (98-107); Estimated Creatinine Clearance 119 ml/min; Glucose 121 mg/dl (70-99); Potassium 4.0 mmol/L (3.5-5.1); Sodium 139 mmol/L (135-145); eGFR > 60.00
[2025-07-03] MEDS: VANCOCIN 275 MG IV ×2 (06:19→17:11)
[2025-07-03 07:40] LABS: Glucose - Point of Care 125 mg/dl (70-99)
[2025-07-03] MEDS: NOVOLOG FLEXPEN-MODERATE RESISTANCE SC ×3 (08:52→17:11)
--- NOTE | 2025-07-03 08:52 | PHA.VAN.FU ---
Vancomycin Assessment / Plan
- Assessment
Renal Function: Stable
WBC's are: WNL
In the past 24 hrs, patient has been: Afebrile
- Assessment - Therapeutic Drug Monitoring
Extrapolated Cmax (mcg/mL): 25.8
Peak level was drawn: Appropriately
Extrapolated Cmin (mcg/mL): 14.4
Trough Drawn: Appropriately
Levels were drawn: At steady state
Calculated AUC (mcg*h/mL): 471
Calculated ke: 0.0555
Calculated half life (H): 12.5
Calculated Vd (L): 95
Calculated Vanc CL (ml/min): 88
- Dosing Plan
Continue: VANCO 1250MG Q12H
- Monitoring Plan
Level(s) appropriate: Recheck trough at minimum of weekly intervals, Repeat sooner for changes in renal function or clinical status
Next Level Due (Date): ~07/10
- Follow Up
Pharmacy will continue to follow.
Vancomycin Follow UP
- -
Patient Age: 70
Patient Sex: Male
Vancomycin Day #: 5
Indication: Diabetic Foot
Requesting Provider: Dr Delvin Yepez
Pertinent Antimicrobial Allergies:
erythromycin - N/V
Height / Weight:
Height 6 ft
Actual Weight 101.7 kg
Pertinent Past Medical History: DM II
- Vital Signs / Lab Results
Temp Pulse Resp BP Pulse Ox
98 F 68 18 123/60 99
07/03/25 07:00 07/03/25 07:00 07/03/25 07:00 07/03/25 07:00 07/03/25 07:00
Lab Results - Hematology
07/01/25 07/02/25 07/03/25
03:53 07:20 05:21
WBC 8.0 9.5 8.4
Lab Results - Chemistry
07/01/25 07/02/25 07/03/25
03:53 07:20 05:21
BUN 10 9 5 L
Creatinine 0.8 0.8 0.7
Estimated Creat Clear 93 105 119
Microbiology Results
07/02/25 07:55 Blood Culture - Preliminary
Blood/Venous No Growth in 24 hours- Final report to follow
07/02/25 07:19 Blood Culture - Preliminary
Blood/Venous No Growth in 24 hours- Final report to follow
07/01/25 16:34 Anaerobic Culture - Preliminary
Ankle - Left Culture pending. Anaerobic cultures are examined after 3
days incubation. Additional information to follow.
07/01/25 16:34 Wound Culture - Preliminary
Ankle - Left Staphylococcus aureus
Gram Stain - Preliminary
06/30/25 10:47 Blood Culture - Preliminary
Blood/Venous No Growth in 48 hours- Final report to follow
06/30/25 10:18 Blood Culture - Preliminary
Blood/Venous No Growth in 48 hours- Final report to follow
06/29/25 18:11 Blood Culture - Final
Blood/Venous Staph aureus MRSA
Gram Stain - Final
06/29/25 18:03 Blood Culture - Final
Blood/Venous Staph aureus MRSA
Gram Stain - Final
Therapeutic Drug Monitoring
Vancomycin Peak 23.7 ug/ml (18-26) 07/02/25 19:52
Vancomycin Trough 14.0 ug/ml (5-20) 07/03/25 05:21
[2025-07-03] MEDS: PACERONE 200 MG PO (08:53)
[2025-07-03] MEDS: TOPROL XL 25 MG PO (08:53)
--- NOTE | 2025-07-03 09:18 | CM ---
Addendum entered by Linda Hermosillo 07/03/25 12:10:
Patient seen bedside, discussed potential of SNF upon d/c. Patient reports he will not go to a SNF again, has had IV antibiotics in past and is comfortable with discharging home with home infusion. Patient reports he has a wheelchair, walker,
commode in the home. Would return services with [facility].
Plan; watch for wound vac, iv antibiotics, [facility]
Original Note:
CM reviewed chart, will watch for new therapy recommendations when able to work with patient. Patient NWB to LLE. CM will watch for potential wound vac needs. Per ID, patient will likely require IV antibiotics upon discharge. Patient will likely
require SNF upon discharge, will continue to follow for all discharge planning needs.
Plan; potential wound vac, current NWB status, IV antibiotics, SNF upon d/c when stable
[2025-07-03 11:31] LABS: Glucose - Point of Care 143 mg/dl (70-99)
--- NOTE | 2025-07-03 13:42 | W.PN.HOSP.TC ---
Today's Communication/Plan
-
await cultures
abx
monitor hgb, restart eliquis tomorrow if hgb remains stable
resume lasix
Assessment / Plan
Assessment / Plan
Impression:
Patient is a 70y M with PMH significant for A-Fib, DM-II and Charcot foot s/p surgery on 04/21/25 who presents to ED complaining of L foot pain and swelling x 2 days.
Left foot/ankle abscess
Staphylococcal bacteremia
Conditions prior to admission:
Status post double arthrodesis and Achilles lengthening on 04/21/2025
History of of MRSA bacteremia with left shoulder septic arthritis surgically treated at [facility] completed 6 weeks of antibiotics January - February 2025.
Chronic persistent atrial fibrillation baseline anticoagulation with Eliquis
Chronic CHF unknown type.
IDDM.
Chronic microcytic anemia.
Obesity due to excessive calories
Obstructive sleep apnea on CPAP.
Plan
Left Foot Infection / Charcot Foot
Staphylococcal bacteremia pending final cultures
Infected joint effusion/septic arthritis
Possible Osteomyelitis of the Left foot
-s/p left ankle arthrotomy w/ Ankle joint pinning 07/01; plan for removal of pins and placement of rods as per podiatry
- Continue IV abx for now. Vancomycin; DC zosyn
-Wound culture follow up - [facility]
-Consideration of wound vac next week if viable
-Drain in place
-Echocardiogram - Echodensity on the aortic surface of the left coronary cusp, likely calcification though a vegetation cannot be excluded with certainty; No obvious vegetation- therefore will hold on further LYDIA at this time; other source (foot) is
most likely culprit
-Blood cultures for clearance
-Podiatry on board
-- Ortho / Podiatry consulted.
- Supportive care, pain control, etc.
Chronic Persistent Atrial Fibrillation
- Stable. s/p prior catheter ablation.
- can restart eliquis if hgb remains stable tomorrow
- Continue metoprolol, amiodarone with holding parameters.
Chronic HF - Unknown Type
- Stable. Euvolemic.
-resume lasix
- Follow I/Os, daily weights, etc.
�EF stable
DM-II
- Stable. Basal : bolus insulin regimen for now.
Chronic Microcytic Anemia
- No significant improvement from post-op state 2 months ago.
- Iron studies consistent with mild iron deficiency and anemia of chronic inflammation
- Follow for changes in H&H.
- No evidence of acute bleeding, etc at present.
- Holding on IV iron with active infection
Obesity due to excess calories
MELBA not on CPAP
- Affects all aspects of care.
- Encourage healthy diet and activity as able with goal of weight loss.
DVT Prophylaxis: Resume Eliquis
Anticipated Discharge: > 48 hours
Subjective/Interval History
-
Date of Service: July 03, 2025
No acute events overnight
Objective Data
-
Labs:
Laboratory Results
07/03/25
05:21
WBC 8.4
Hgb 7.4 L
Hct 24.2 L
Plt Count 303
Sodium 139
Potassium 4.0
Chloride 107
Carbon Dioxide 31 H
BUN 5 L
Creatinine 0.7
Glucose 121 H
Calcium 8.0 L
Vital Signs:
Vital Signs
Temp Pulse Resp BP Pulse Ox
98 F 67 16 142/53 98
07/03/25 11:30 07/03/25 11:30 07/03/25 11:30 07/03/25 11:30 07/03/25 11:30
I&O
07/02/25 07/03/25 07/04/25
06:59 06:59 06:59
Intake Total 420 / 420 980 / 980
Output Total 5920 / 5920 2460 / 2460
Balance -5500 / -5500 -1480 / -1480
Review of Systems
-
History Source: Patient
All other systems: Not reviewed unless documented
Physical Exam
-
General: Well Developed and No Apparent Distress
HEENT: Normocephalic, Atraumatic and Moist Mucous Membranes
Respiratory: Clear to Auscultation
Cardiac: Regular Rhythm and S1/S2; Negative Murmur, Rub or Gallop
GI: Soft, Nontender, Nondistended and Normal Bowel Sounds; Negative Organomegaly
Rectal: Deferred by Provider
Musculoskeletal: No Clubbing, No Cyanosis, No Edema and Other (Left foot/ankle wrapped; Drain in place)
Skin: Negative Rash
Neuro: Nonfocal/Grossly Intact
Data Reviewed
-
Diagnostic Radiology: Report Reviewed by me
Ultrasound: Report Reviewed by me
MRI: Report Reviewed by me
Labs: Labs Reviewed by me
[2025-07-03] MEDS: MIRALAX 17 GRAMS PO (17:10)
[2025-07-03] MEDS: LIPITOR 10 MG PO (17:11)
[2025-07-03 17:12] LABS: Glucose - Point of Care 116 mg/dl (70-99)
[2025-07-03] MEDS: EFFEXOR XR 75 MG PO (20:36)
[2025-07-03] MEDS: VALTREX 500 MG PO (20:36)
[2025-07-03 20:50] LABS: Glucose - Point of Care 126 mg/dl (70-99)
[2025-07-04] MEDS: DILAUDID 1 MG IV ×7 (02:37→23:03)
[2025-07-04 03:00] VITALS: BP 126/54
[2025-07-04 03:55] VITALS: BMI 30.3
[2025-07-04] MEDS: VANCOCIN 275 MG IV ×2 (06:02→17:29)
[2025-07-04 07:00] VITALS: BP 133/70
[2025-07-04 07:28] LABS: Glucose - Point of Care 105 mg/dl (70-99)
[2025-07-04] MEDS: NOVOLOG FLEXPEN-MODERATE RESISTANCE SC ×3 (08:02→16:35)
[2025-07-04 08:07] LABS: Hematocrit 22.9 % (39.0-52.0); Hemoglobin 7.1 g/dL (13.0-18.0); Mean Corp Hgb Conc. 31.0 g/dL (33.0-37.0); Mean Corpuscular Volume 76.6 fL (80.0-94.0); Platelet Count 301 10^3/uL (130-400); Red Cell Dist. Width 20.8 % (11.5-14.5)
[2025-07-04] MEDS: PACERONE 200 MG PO (08:09)
[2025-07-04] MEDS: LASIX 20 MG PO (08:09)
[2025-07-04] MEDS: TOPROL XL 25 MG PO (08:09)
--- NOTE | 2025-07-04 08:40 | W.PN.HOSP.TC ---
Today's Communication/Plan
-
Repeat H&H pending.
Resume Eliquis if H&H stable.
Patient will need PICC line and will need following with course of IV antibiotic.
Follow-up with podiatry recommendations.
Assessment / Plan
Assessment / Plan
Impression:
Patient is a 70y M with PMH significant for A-Fib, DM-II and Charcot foot s/p surgery on 04/21/25 who presents to ED complaining of L foot pain and swelling x 2 days.
Left foot/ankle abscess
MRSA bacteremia.
Conditions prior to admission:
Status post double arthrodesis and Achilles lengthening on 04/21/2025
History of of MRSA bacteremia with left shoulder septic arthritis surgically treated at [facility] completed 6 weeks of antibiotics January - February 2025.
Chronic persistent atrial fibrillation baseline anticoagulation with Eliquis
Chronic CHF unknown type.
IDDM.
Chronic microcytic anemia.
Obesity due to excessive calories
Obstructive sleep apnea on CPAP.
Assessment /Plan
Left Foot Infection / Charcot Foot
MRSA bacteremia, repeat blood cultures so far negative
Infected joint effusion/septic arthritis
Possible Osteomyelitis of the Left foot
- s/p left ankle arthrotomy w/ Ankle joint pinning 07/01; plan for removal of pins and placement of rods as per podiatry
- Continue IV abx for now. Vancomycin.
- Wound culture MRSA
- Drain in place.
-Echocardiogram - Echodensity on the aortic surface of the left coronary cusp, likely calcification though a vegetation cannot be excluded with certainty; No obvious vegetation- therefore will hold on further LYDIA at this time; other source (foot) is
most likely culprit.
-Repeat Blood cultures remain negative.
Appreciate infectious disease input, patient will need PICC line and prolonged IV antibiotic
Chronic Persistent Atrial Fibrillation
- Stable. s/p prior catheter ablation.
- can restart eliquis if hgb remains stable , repeat H&H pending
- Continue metoprolol, amiodarone with holding parameters.
Chronic diastolic CHF
- Stable. Euvolemic.
-resume lasix
- Follow I/Os, daily weights, etc.
�EF stable
DM-II
- Stable. Basal : bolus insulin regimen for now.
Chronic Microcytic Anemia
- No significant improvement from post-op state 2 months ago.
- Iron studies consistent with mild iron deficiency and anemia of chronic inflammation
- Follow for changes in H&H.
- No evidence of acute bleeding, etc at present.
- Holding on IV iron with active infection
- Resume Eliquis if hemoglobin stay
Obesity due to excess calories
MELBA not on CPAP
- Affects all aspects of care.
- Encourage healthy diet and activity as able with goal of weight loss.
CODE STATUS: Full code
DVT prophylaxis: Resume Eliquis if hemoglobin is
Diet: DM diet
Disposition: H&H pending.
Total time spent on today's encounter was 55 minutes which included time spent in counseling the patient/family regarding diagnosis and treatment plan as listed above, goals of care, and symptom management. Case was discussed with nursing staff,
specialists, and care coordinators/case management. All labs and imaging personally reviewed by me. Remainder the time spent in detailed review of previous records, lab data, imaging, and other medical provider documentation.
Anticipated Discharge: > 48 hours
Subjective/Interval History
-
Date of Service: July 04, 2025
Patient seen and examined at bedside, denies any chest pain or shortness of breath, no abdominal pain, no nausea, no vomiting, no diarrhea or constipation.
Objective Data
-
Labs:
Laboratory Results
07/04/25
06:41
WBC 6.7
Hgb 7.1 L
Hct 22.9 L
Plt Count 301
Sodium Pending
Potassium Pending
Chloride Pending
Carbon Dioxide Pending
BUN Pending
Creatinine Pending
Glucose Pending
Calcium Pending
Vital Signs:
Vital Signs
Temp Pulse Resp BP Pulse Ox
97.6 F 66 12 133/70 97
07/04/25 07:00 07/04/25 07:00 07/04/25 07:00 07/04/25 07:00 07/04/25 07:00
I&O
07/03/25 07/04/25 07/05/25
06:59 06:59 06:59
Intake Total 980 / 980 1050 / 1050
Output Total 2460 / 2460
Balance -1480 / -1480 1050 / 1050
Physical Exam
-
General: Well Developed, Well Nourished, No Apparent Distress and Comfortable
HEENT: Normocephalic, Atraumatic, Moist Mucous Membranes, No Ptosis, PERRLA and Nose Appears Normal
Respiratory: Clear to Auscultation and Non Labored Respirations
Cardiac: Regular Rhythm and S1/S2
Breast: Deferred by me
GI: Soft, Nontender, Nondistended and Normal Bowel Sounds
Genito-urinary: No Costovertebral Tender
Musculoskeletal: No Clubbing, No Cyanosis, No Edema and Other (Left foot dressing/boot)
Skin: Warm
Neuro: Awake, Alert, Oriented, AO x 3 and No Motor Deficits
Psych: Calm
Data Reviewed
-
Diagnostic Radiology: Image personally visualized and interpreted and Report Reviewed by me
CT Scan: Image personally visualized and interpreted and Report Reviewed by me
Ultrasound: Image personally visualized and interpreted and Report Reviewed by me
MRI: Image personally visualized and interpreted and Report Reviewed by me
Medical Tests (Nuc Med, Echo etc): Image personally visualized and interpreted and Report Reviewed by me
Labs: Labs Reviewed by me
Old Records: Reviewed
[2025-07-04 08:45] LABS: Blood Urea Nitrogen 5 mg/dl (9-20); Calcium 8.0 mg/dl (8.4-10.2); Carbon Dioxide 29 mmol/L (22-30); Chloride 106 mmol/L (98-107); Estimated Creatinine Clearance 119 ml/min; Glucose 93 mg/dl (70-99); Potassium 3.9 mmol/L (3.5-5.1); Sodium 137 mmol/L (135-145); eGFR > 60.00
[2025-07-04 11:00] VITALS: BP 127/62
[2025-07-04 11:34] LABS: Glucose - Point of Care 125 mg/dl (70-99)
--- NOTE | 2025-07-04 14:34 | PHA.VAN.FU ---
Vancomycin Assessment / Plan
- Assessment
Renal Function: Stable
WBC's are: Stable
In the past 24 hrs, patient has been: Afebrile
Concomitant Antimicrobials: Valacyclovir
- Dosing Plan
Continue: Vancomycin 1250mg IV Q12h
- Monitoring Plan
Level(s) appropriate: Recheck trough at minimum of weekly intervals (next due ~07/10), Repeat sooner for changes in renal function or clinical status
- Follow Up
Pharmacy will continue to follow.
Vancomycin Follow UP
- -
Patient Age: 70
Patient Sex: Male
Vancomycin Day #: 6
Indication: Diabetic Foot
Requesting Provider: Dr Delvin Yepez
Pertinent Antimicrobial Allergies:
erythromycin - N/V
Height / Weight:
Height 6 ft
Actual Weight 101.1 kg
Pertinent Past Medical History: DM II
- Vital Signs / Lab Results
Temp Pulse Resp BP Pulse Ox
97.9 F 71 12 127/62 93
07/04/25 11:00 07/04/25 11:00 07/04/25 11:00 07/04/25 11:00 07/04/25 11:00
Lab Results - Hematology
07/02/25 07/03/25 07/04/25
07:20 05:21 06:41
WBC 9.5 8.4 6.7
Lab Results - Chemistry
07/02/25 07/03/25 07/04/25
07:20 05:21 06:41
BUN 9 5 L 5 L
Creatinine 0.8 0.7 0.7
Estimated Creat Clear 105 119 119
Microbiology Results
06/30/25 10:47 Blood Culture - Preliminary
Blood/Venous No Growth in 4 days- Final report to follow
06/30/25 10:18 Blood Culture - Preliminary
Blood/Venous No Growth in 4 days- Final report to follow
07/01/25 16:34 Anaerobic Culture - Preliminary
Ankle - Left NO ANAEROBES ISOLATED
07/01/25 16:34 Wound Culture - Preliminary
Ankle - Left Staph aureus MRSA
Gram Stain - Preliminary
07/02/25 07:55 Blood Culture - Preliminary
Blood/Venous No Growth in 48 hours- Final report to follow
07/02/25 07:19 Blood Culture - Preliminary
Blood/Venous No Growth in 48 hours- Final report to follow
Therapeutic Drug Monitoring
Vancomycin Peak 23.7 ug/ml (18-26) 07/02/25 19:52
Vancomycin Trough 14.0 ug/ml (5-20) 07/03/25 05:21
[2025-07-04 15:00] VITALS: BP 126/58
[2025-07-04 15:41] LABS: Hematocrit 23.1 % (39.0-52.0); Hemoglobin 7.1 g/dL (13.0-18.0)
[2025-07-04 16:35] LABS: Glucose - Point of Care 135 mg/dl (70-99)
[2025-07-04] MEDS: MIRALAX 17 GRAMS PO (17:29)
[2025-07-04] MEDS: LIPITOR 10 MG PO (17:29)
[2025-07-04 21:17] LABS: Glucose - Point of Care 133 mg/dl (70-99)
[2025-07-04] MEDS: VALTREX 500 MG PO (21:19)
[2025-07-04] MEDS: EFFEXOR XR 75 MG PO (21:19)
[2025-07-04 23:00] VITALS: BP 133/60
[2025-07-05] MEDS: DILAUDID 1 MG IV ×6 (02:05→21:28)
[2025-07-05] MEDS: VANCOCIN 275 MG IV ×2 (05:30→18:22)
[2025-07-05 05:38] VITALS: BMI 29.9
[2025-07-05 07:00] VITALS: BP 127/59
[2025-07-05 08:35] LABS: Glucose - Point of Care 121 mg/dl (70-99)
[2025-07-05 08:48] LABS: Hematocrit 22.7 % (39.0-52.0); Hemoglobin 7.0 g/dL (13.0-18.0); Mean Corp Hgb Conc. 30.8 g/dL (33.0-37.0); Mean Corpuscular Volume 77.7 fL (80.0-94.0); Platelet Count 341 10^3/uL (130-400); Red Cell Dist. Width 21.0 % (11.5-14.5)
[2025-07-05] MEDS: PACERONE 200 MG PO (09:18)
[2025-07-05] MEDS: NOVOLOG FLEXPEN-MODERATE RESISTANCE SC ×3 (09:18→18:21)
[2025-07-05] MEDS: LASIX 20 MG PO (09:19)
[2025-07-05] MEDS: TOPROL XL 25 MG PO (09:19)
--- NOTE | 2025-07-05 09:28 | PHA.VAN.FU ---
Addendum entered and electronically signed by Lena Hernández [facility] 07/05/25 13:02:
Vanc to be switched to daptomycin, will d/c levels
Original Note:
Vancomycin Assessment / Plan
- Assessment
Renal Function: Stable
WBC's are: WNL
In the past 24 hrs, patient has been: Afebrile
Concomitant Antimicrobials: chronic valacyclovir
- Dosing Plan
Continue: Vanc 1250mg Q12H
- Monitoring Plan
Peak Level: 07/05 21:30
Trough Level: 07/06 05:30
Monitoring Comments: repeat levels today given borderline half-life with Q12H interval
- Follow Up
Pharmacy will continue to follow.
Vancomycin Follow UP
- -
Patient Age: 70
Patient Sex: Male
Vancomycin Day #: 7
Indication: Diabetic Foot
Requesting Provider: Dr Delvin Yepez / Dr. Willingham
Pertinent Antimicrobial Allergies:
erythromycin - N/V
Height / Weight:
Height 6 ft
Actual Weight 100 kg
Pertinent Past Medical History: DM II
- Vital Signs / Lab Results
Temp Pulse Resp BP Pulse Ox
97.6 F 68 18 127/59 93
07/05/25 07:00 07/05/25 09:18 07/05/25 07:00 07/05/25 09:18 07/05/25 07:00
Lab Results - Hematology
07/03/25 07/04/25 07/05/25
05:21 06:41 08:18
WBC 8.4 6.7 7.2
Lab Results - Chemistry
07/03/25 07/04/25
05:21 06:41
BUN 5 L 5 L
Creatinine 0.7 0.7
Estimated Creat Clear 119 119
Microbiology Results
07/02/25 07:55 Blood Culture - Preliminary
Blood/Venous No Growth in 72 hours- Final report to follow
07/02/25 07:19 Blood Culture - Preliminary
Blood/Venous No Growth in 72 hours- Final report to follow
06/30/25 10:47 Blood Culture - Preliminary
Blood/Venous No Growth in 4 days- Final report to follow
06/30/25 10:18 Blood Culture - Preliminary
Blood/Venous No Growth in 4 days- Final report to follow
07/01/25 16:34 Anaerobic Culture - Preliminary
Ankle - Left NO ANAEROBES ISOLATED
07/01/25 16:34 Wound Culture - Preliminary
Ankle - Left Staph aureus MRSA
Gram Stain - Preliminary
Therapeutic Drug Monitoring
Vancomycin Peak 23.7 ug/ml (18-26) 07/02/25 19:52
Vancomycin Trough 14.0 ug/ml (5-20) 07/03/25 05:21
--- NOTE | 2025-07-05 12:06 | W.PN.HOSP.TC ---
Today's Communication/Plan
-
Blood transfusion.
Resume Eliquis tonight
PICC line.
Assessment / Plan
Assessment / Plan
Impression:
Patient is a 70y M with PMH significant for A-Fib, DM-II and Charcot foot s/p surgery on 04/21/25 who presents to ED complaining of L foot pain and swelling x 2 days.
Left foot/ankle abscess
MRSA bacteremia.
Conditions prior to admission:
Status post double arthrodesis and Achilles lengthening on 04/21/2025
History of of MRSA bacteremia with left shoulder septic arthritis surgically treated at [facility] completed 6 weeks of antibiotics January - February 2025.
Chronic persistent atrial fibrillation baseline anticoagulation with Eliquis
Chronic CHF unknown type.
IDDM.
Chronic microcytic anemia.
Obesity due to excessive calories
Obstructive sleep apnea on CPAP.
Assessment /Plan
Left Foot Infection / Charcot Foot
MRSA bacteremia, repeat blood cultures so far negative
Infected joint effusion/septic arthritis
Possible Osteomyelitis of the Left foot
- s/p left ankle arthrotomy w/ Ankle joint pinning 07/01; plan for removal of pins and placement of rods as per podiatry
- Continue IV abx for now. Vancomycin.
- Wound culture MRSA
- Drain in place.
-Echocardiogram - Echodensity on the aortic surface of the left coronary cusp, likely calcification though a vegetation cannot be excluded with certainty; No obvious vegetation- therefore will hold on further LYDIA at this time; other source (foot) is
most likely culprit.
-Repeat Blood cultures remain negative.
Appreciate infectious disease input, patient will need PICC line and prolonged IV antibiotic.
07/05
Follow-up with podiatry recommendations.
Chronic Persistent Atrial Fibrillation
- Stable. s/p prior catheter ablation.
- Hemoglobin still low but will start Eliquis tonight and proceed with 1 unit of blood transfusion.
- Continue metoprolol, amiodarone with holding parameters.
Chronic diastolic CHF
- Stable. Euvolemic.
-resume lasix
- Follow I/Os, daily weights, etc.
�EF stable
DM-II
- Stable. Basal : bolus insulin regimen for now.
Acute blood loss anemia
Acute on chronic Microcytic Anemia
- No significant improvement from post-op state 2 months ago.
- Iron studies consistent with mild iron deficiency and anemia of chronic inflammation
- Follow for changes in H&H.
- No evidence of acute bleeding, etc at present.
- Holding on IV iron with active infection
07/05
Hemoglobin 7.0.
Proceed with 1 unit of blood transfusion
- Resume Eliquis tonight and continue to monitor Hb
Obesity due to excess calories
MELBA not on CPAP
- Affects all aspects of care.
- Encourage healthy diet and activity as able with goal of weight loss.
CODE STATUS: Full code
DVT prophylaxis: Resume Eliquis if hemoglobin is
Diet: DM diet
Disposition: Blood transfusion.
Resume Eliquis tonight
PICC line.
Total time spent on today's encounter was 55 minutes which included time spent in counseling the patient/family regarding diagnosis and treatment plan as listed above, goals of care, and symptom management. Case was discussed with nursing staff,
specialists, and care coordinators/case management. All labs and imaging personally reviewed by me. Remainder the time spent in detailed review of previous records, lab data, imaging, and other medical provider documentation.
Anticipated Discharge: > 48 hours
Subjective/Interval History
-
Date of Service: July 05, 2025
Patient seen and examined at bedside, denies any chest pain or shortness of breath, no abdominal pain, no nausea, no vomiting, no diarrhea or constipation.
Hemoglobin dropping to 7.0.
Will proceed with 1 unit of blood transfusion and started Eliquis tonight.
Objective Data
-
Labs:
Laboratory Results
07/05/25
08:18
WBC 7.2
Hgb 7.0 L
Hct 22.7 L
Plt Count 341
Vital Signs:
Vital Signs
Temp Pulse Resp BP Pulse Ox
97.6 F 68 18 127/59 94
07/05/25 07:00 07/05/25 09:18 07/05/25 07:00 07/05/25 09:18 07/05/25 11:30
I&O
07/04/25 07/05/25 07/06/25
06:59 06:59 06:59
Intake Total 1050 / 1050 1200 / 1200
Output Total 1130 / 1130
Balance 1050 / 1050 70 / 70
Physical Exam
-
General: Well Developed, Well Nourished, No Apparent Distress and Comfortable
HEENT: Normocephalic, Atraumatic, Moist Mucous Membranes, No Ptosis, PERRLA and Nose Appears Normal
Respiratory: Clear to Auscultation and Non Labored Respirations
Cardiac: Regular Rhythm and S1/S2
Breast: Deferred by me
GI: Soft, Nontender, Nondistended and Normal Bowel Sounds
Genito-urinary: No Costovertebral Tender
Musculoskeletal: No Clubbing, No Cyanosis, No Edema and Other (Left foot dressing/boot)
Skin: Warm
Neuro: Awake, Alert, Oriented, AO x 3 and No Motor Deficits
Psych: Calm
[2025-07-05 12:11] LABS: Glucose - Point of Care 147 mg/dl (70-99)
--- NOTE | 2025-07-05 12:48 | W.PN.ID1 ---
Date of Service
Date of Service: July 05, 2025
Today's Communication
See below.
Assessment / Plan
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
.04/21/25 s/p arthrodesis and Achilles tendon lengthening
# MRSA bacteremia x 2 sets - foot source
# Fever resolved
# Recent h/o MRSA bacteremia, septic arthritis of left shoulder s/p washout completed close to 12 weeks of IV abx at OSH (12/2024)
# DM with Charcot arthropathy
- Ankle MRI: large tibiotalar joint effusion
- TTE: echodensity AV likely calcification
- Repeat blood cultures neg to date
- 07/01/25 s/p OR washout,debridement -> OR cx MRSA
*Awaiting Podiatry plan in light of +OR cx.
- Replace Vancomycin with Daptomycin for ease of administration.
- Plan for Daptomycin 1000 IV q24 x 6 weeks through 08/10/25
Follow CK while on daptomycin
Hold statin while on daptomycin.
Place Picc.
Chief Complaint
-: Other (Left foot pain and swelling)
Subjective / Review of Systems
No new complaints.
Vital Signs / Physical Exam
Vital Signs
Vital Signs
Temp Pulse Resp BP Pulse Ox
97.6 F 68 18 127/59 94
07/05/25 07:00 07/05/25 09:18 07/05/25 07:00 07/05/25 09:18 07/05/25 11:30
Physical Exam
Constitutional: No Acute Distress
Eyes: Sclera Anicteric
Pulmonary: Non Labored
Gastrointestinal: Non Distended
Extremities: Other (LLE splinted and wrapped in LLUVIA.)
Neurological: Awake and Alert
Psychological: Calm
Objective Data
Lab Data
Lab Results
07/05/25 08:18
07/04/25 06:41
Estimated Creat Clear 119 ml/min 07/04/25 06:41
Lactic Acid Cancelled 06/29/25 22:00
Total Bilirubin 0.5 mg/dl (0.2-1.3) 06/29/25 15:15
AST 32 U/L (17-59) 06/29/25 15:15
ALT 28 U/L (0-50) 06/29/25 15:15
Alkaline Phosphatase 103 U/L (38-126) 06/29/25 15:15
Most recent labs reviewed.
Micro Results:
06/30/25 10:47 Blood Culture - Final
Blood/Venous No Growth - Final Report
06/30/25 10:18 Blood Culture - Final
Blood/Venous No Growth - Final Report
07/02/25 07:55 Blood Culture - Preliminary
Blood/Venous No Growth in 72 hours- Final report to follow
07/02/25 07:19 Blood Culture - Preliminary
Blood/Venous No Growth in 72 hours- Final report to follow
07/01/25 16:34 Anaerobic Culture - Preliminary
Ankle - Left NO ANAEROBES ISOLATED
07/01/25 16:34 Wound Culture - Preliminary
Ankle - Left Staph aureus MRSA
Gram Stain - Preliminary
06/29/25 18:11 Blood Culture - Final
Blood/Venous Staph aureus MRSA
Gram Stain - Final
06/29/25 18:03 Blood Culture - Final
Blood/Venous Staph aureus MRSA
Gram Stain - Final
CR Foot - Left 06/29/25:Postsurgical changes.
Diffuse soft tissue swelling.
Prominent soft tissue anterior to the tibiotalar articulation, suggesting a large tibiotalar joint effusion.
No definitive radiographic evidence for bone destruction/osteomyelitis.
US Periph Venous LOWER Ext LT 06/29/25: no evidence of DVT
MR Left Ankle Without 06/30/2025:
Large tibiotalar joint effusion with prominent anterior extension as well as prominent anterolateral, lateral, and posterolateral extension, extending superficial to the fibula and the peroneal tendons. Findings are suspicious for infected joint
effusion/septic arthritis. As warranted, consideration for further evaluation with arthrocentesis.
Fairly extensive marrow signal intensity abnormality with decreased T1 and increased T2 and STIR signal, as described above. This marrow signal intensity abnormality is nonspecific, with main differential considerations of osteomyelitis and/or
neuropathic arthropathy. Consideration for follow-up radiography to assess for any progressive bony destruction.
Subcutaneous edema, greater dorsally. No evidence for soft tissue abscess.
[2025-07-05 13:53] VITALS: BP 114/60
[2025-07-05 14:13] VITALS: BP 134/63
--- NOTE | 2025-07-05 14:50 | CM ---
Chart reviewed and case checker met with patient and patient's spouse at bedside, patient wants to return to home when stable, with IV ABX, per patient he had [facility] in past and would like them again.
Plan; Home with spouse, wants [facility], and [facility] visiting nurses.
[2025-07-05 15:39] VITALS: BP 146/75
[2025-07-05 16:25] VITALS: BP 145/74
--- NOTE | 2025-07-05 16:43 | W.PN.UPDATE ---
Update Note
Progress Note Update
70M s/p left ankle arthrotomy w/ Ankle joint pinning. Pt doing well today, denies any pain. no calf pain. Discussed etiology of Charcot arthropathy and current plan with patient and his with all questions answered.
- Plan for OR friday : application of ring exfix LLE
- strict NWB LLE
- culture : MRSA
-- continue abx per ID recs
- drain strip q4
- will monitor
[2025-07-05 17:07] LABS: Glucose - Point of Care 144 mg/dl (70-99)
[2025-07-05] MEDS: LIPITOR 10 MG PO (18:21)
[2025-07-05] MEDS: MIRALAX 17 GRAMS PO (18:22)
[2025-07-05] MEDS: ELIQUIS 5 MG PO (20:12)
[2025-07-05] MEDS: EFFEXOR XR 75 MG PO (21:28)
[2025-07-05] MEDS: VALTREX 500 MG PO (21:28)
[2025-07-05 21:34] LABS: Glucose - Point of Care 135 mg/dl (70-99)
[2025-07-05 23:00] VITALS: BP 135/68
[2025-07-06] MEDS: DILAUDID 1 MG IV ×7 (00:28→23:01)
[2025-07-06 06:00] VITALS: BMI 30.1
[2025-07-06 07:15] VITALS: BP 116/51
[2025-07-06] MEDS: LASIX 20 MG PO (08:23)
[2025-07-06 08:24] LABS: Glucose - Point of Care 92 mg/dl (70-99)
[2025-07-06] MEDS: TOPROL XL 25 MG PO (08:24)
[2025-07-06] MEDS: ELIQUIS 5 MG PO ×2 (08:24→19:54)
[2025-07-06] MEDS: PACERONE 200 MG PO (08:24)
[2025-07-06] MEDS: CUBICIN 20 MG IV (08:25)
[2025-07-06] MEDS: NOVOLOG FLEXPEN-MODERATE RESISTANCE SC ×3 (08:26→16:57)
[2025-07-06 09:42] LABS: Hematocrit 29.3 % (39.0-52.0); Hemoglobin 9.0 g/dL (13.0-18.0); Mean Corp Hgb Conc. 30.7 g/dL (33.0-37.0); Mean Corpuscular Volume 78.6 fL (80.0-94.0); Platelet Count 379 10^3/uL (130-400); Red Cell Dist. Width 20.2 % (11.5-14.5)
--- NOTE | 2025-07-06 12:02 | CM ---
CM reviewed chart, plan for OR Friday. CM received call from Eunice Stock at [facility], have followed patient in past. Per patients insurance- deductible met, patient covered 100% for nursing/supplies, will have a copay for medications
each week, $102.16, medication will be delivered weekly, can also provide payment plan if needed. Will update [facility] and [facility] closer to discharge. Will follow for wound vac needs.
Plan; OR Friday, [facility] following, [facility] following
[2025-07-06 12:12] LABS: Glucose - Point of Care 128 mg/dl (70-99)
--- NOTE | 2025-07-06 12:32 | W.PN.ID1 ---
Addendum entered and electronically signed by Sophie Willingham MD 07/06/25 16:09:
I saw and evaluated the patient. I reviewed the resident�s note and agree with findings and plan as documented in the resident�s note.
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
.04/21/25 s/p arthrodesis and Achilles tendon lengthening
# MRSA bacteremia x 2 sets - foot source
# Fever resolved
# Recent h/o MRSA bacteremia, septic arthritis of left shoulder s/p washout completed close to 12 weeks of IV abx at OSH (12/2024)
# DM with Charcot arthropathy
- TTE: echodensity AV likely calcification
- Repeat blood cultures neg to date
- 07/01/25 s/p OR washout,debridement -> OR cx MRSA
- OR Friday for HW removal and application of ring external fixation
- Continue Daptomycin 1000 IV q24 x 6 weeks through 08/10/25
Follow CK (normal) while on daptomycin
Hold statin while on daptomycin.
-Infusion sheet submitted to outsole caser 07/05.
- Place Picc when close to discharge.
Original Note:
Date of Service
Date of Service: July 06, 2025
Today's Communication
Podiatry plan for OR friday : application of ring exfix LLE
Continue with daptomycin for now
Follow CK
Continue to hold atorvastatin while on daptomycin
Assessment / Plan
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
-----04/21/25 s/p arthrodesis and Achilles tendon lengthening
# MRSA bacteremia x 2 sets - foot source
# Fever resolved
# Recent h/o MRSA bacteremia, septic arthritis of left shoulder s/p washout completed close to 12 weeks of IV abx at OSH (12/2024)
# DM with Charcot arthropathy
- Ankle MRI: large tibiotalar joint effusion
- TTE: echodensity AV likely calcification
- Repeat blood cultures neg to date
- 07/01/25 s/p OR washout,debridement -> OR cx MRSA
-----Podiatry plan for OR friday : application of ring exfix LLE
- Continue daptomycin # day 1.(He was on vancomycin for 5 days)
- Plan for Daptomycin 1000 IV q24 x 6 weeks through 08/10/25
Follow CK while on daptomycin; initial CK of 36
Hold statin while on daptomycin.
Chief Complaint
-: Other (Left foot pain and swelling)
Subjective / Review of Systems
No new complaints
Vital Signs / Physical Exam
Vital Signs
Vital Signs
Temp Pulse Resp BP Pulse Ox
97.7 F 60 16 116/57 99
07/06/25 07:15 07/06/25 08:23 07/06/25 07:15 07/06/25 08:23 07/06/25 07:15
Physical Exam
Constitutional: No Acute Distress
Cardiovascular: Regular Rate and S1/S2
Pulmonary: Clear and Non Labored; Negative Wheezes
Gastrointestinal: Soft and Non Distended
Extremities: Other (Left lower extremity splinted and wrapped in Kurt)
Neurological: Awake and Alert
Psychological: Calm
Lines: PICC
Objective Data
Lab Data
Lab Results
07/06/25 07:11
07/04/25 06:41
Estimated Creat Clear 119 ml/min 07/04/25 06:41
Lactic Acid Cancelled 06/29/25 22:00
Total Bilirubin 0.5 mg/dl (0.2-1.3) 06/29/25 15:15
AST 32 U/L (17-59) 06/29/25 15:15
ALT 28 U/L (0-50) 06/29/25 15:15
Alkaline Phosphatase 103 U/L (38-126) 06/29/25 15:15
Most recent labs reviewed.
Micro Results:
07/01/25 16:34 Anaerobic Culture - Final
Ankle - Left NO ANAEROBES ISOLATED
07/01/25 16:34 Wound Culture - Final
Ankle - Left Staph aureus MRSA
Gram Stain - Final
07/02/25 07:55 Blood Culture - Preliminary
Blood/Venous No Growth in 4 days- Final report to follow
07/02/25 07:19 Blood Culture - Preliminary
Blood/Venous No Growth in 4 days- Final report to follow
06/30/25 10:47 Blood Culture - Final
Blood/Venous No Growth - Final Report
06/30/25 10:18 Blood Culture - Final
Blood/Venous No Growth - Final Report
06/29/25 18:11 Blood Culture - Final
Blood/Venous Staph aureus MRSA
Gram Stain - Final
06/29/25 18:03 Blood Culture - Final
Blood/Venous Staph aureus MRSA
Gram Stain - Final
CR Foot - Left 06/29/25:Postsurgical changes.
Diffuse soft tissue swelling.
Prominent soft tissue anterior to the tibiotalar articulation, suggesting a large tibiotalar joint effusion.
No definitive radiographic evidence for bone destruction/osteomyelitis.
US Periph Venous LOWER Ext LT 06/29/25: no evidence of DVT
MR Left Ankle Without 06/30/2025:
Large tibiotalar joint effusion with prominent anterior extension as well as prominent anterolateral, lateral, and posterolateral extension, extending superficial to the fibula and the peroneal tendons. Findings are suspicious for infected joint
effusion/septic arthritis. As warranted, consideration for further evaluation with arthrocentesis.
Fairly extensive marrow signal intensity abnormality with decreased T1 and increased T2 and STIR signal, as described above. This marrow signal intensity abnormality is nonspecific, with main differential considerations of osteomyelitis and/or
neuropathic arthropathy. Consideration for follow-up radiography to assess for any progressive bony destruction.
Subcutaneous edema, greater dorsally. No evidence for soft tissue abscess.
--- NOTE | 2025-07-06 13:30 | W.PN.HOSP.TC ---
Today's Communication/Plan
-
Podiatry plan for OR friday
PICC line.
Assessment / Plan
Assessment / Plan
Impression:
Patient is a 70y M with PMH significant for A-Fib, DM-II and Charcot foot s/p surgery on 04/21/25 who presents to ED complaining of L foot pain and swelling x 2 days.
Left foot/ankle abscess
MRSA bacteremia.
Podiatry plan for OR friday : application of ring exfix LLE
Conditions prior to admission:
Status post double arthrodesis and Achilles lengthening on 04/21/2025
History of of MRSA bacteremia with left shoulder septic arthritis surgically treated at [facility] completed 6 weeks of antibiotics January - February 2025.
Chronic persistent atrial fibrillation baseline anticoagulation with Eliquis
Chronic CHF unknown type.
IDDM.
Chronic microcytic anemia.
Obesity due to excessive calories
Obstructive sleep apnea on CPAP.
Assessment /Plan
Left Foot Infection / Charcot Foot
MRSA bacteremia, repeat blood cultures so far negative
Infected joint effusion/septic arthritis
Possible Osteomyelitis of the Left foot
- s/p left ankle arthrotomy w/ Ankle joint pinning 07/01; plan for removal of pins and placement of rods as per podiatry
- Continue IV abx for now. Vancomycin.
- Wound culture MRSA
- Drain in place.
-Echocardiogram - Echodensity on the aortic surface of the left coronary cusp, likely calcification though a vegetation cannot be excluded with certainty; No obvious vegetation- therefore will hold on further LYDIA at this time; other source (foot) is
most likely culprit.
-Repeat Blood cultures remain negative.
Appreciate infectious disease input, patient will need PICC line and prolonged IV antibiotic.
07/05
Follow-up with podiatry recommendations.
07/06
Podiatry plan for OR friday : application of ring exfix LLE
Chronic Persistent Atrial Fibrillation
- Stable. s/p prior catheter ablation.
- Hemoglobin still low but will start Eliquis tonight and proceed with 1 unit of blood transfusion.
- Continue metoprolol, amiodarone with holding parameters.
Chronic diastolic CHF
- Stable. Euvolemic.
-resume lasix
- Follow I/Os, daily weights, etc.
�EF stable
DM-II
- Stable. Basal : bolus insulin regimen for now.
Acute blood loss anemia
Acute on chronic Microcytic Anemia
- No significant improvement from post-op state 2 months ago.
- Iron studies consistent with mild iron deficiency and anemia of chronic inflammation
- Follow for changes in H&H.
- No evidence of acute bleeding, etc at present.
- Holding on IV iron with active infection
07/05
Hemoglobin 7.0.
Proceed with 1 unit of blood transfusion
- Resume Eliquis tonight and continue to monitor Hb
07/06
Hemoglobin stable
Obesity due to excess calories
MELBA not on CPAP
- Affects all aspects of care.
- Encourage healthy diet and activity as able with goal of weight loss.
CODE STATUS: Full code
DVT prophylaxis: Resume Eliquis if hemoglobin is
Diet: DM diet
Disposition: Podiatry plan for OR friday
PICC line.
Total time spent on today's encounter was 55 minutes which included time spent in counseling the patient/family regarding diagnosis and treatment plan as listed above, goals of care, and symptom management. Case was discussed with nursing staff,
specialists, and care coordinators/case management. All labs and imaging personally reviewed by me. Remainder the time spent in detailed review of previous records, lab data, imaging, and other medical provider documentation.
Anticipated Discharge: > 48 hours
Subjective/Interval History
-
Date of Service: July 06, 2025
Patient seen and examined at bedside, denies any chest pain or shortness of breath, no abdominal pain, no nausea, no vomiting, no diarrhea or constipation.
Podiatry plan for OR friday : application of ring exfix LLE
Objective Data
-
Labs:
Laboratory Results
07/06/25
07:11
WBC 6.6
Hgb 9.0 L D
Hct 29.3 L
Plt Count 379
Vital Signs:
Vital Signs
Temp Pulse Resp BP Pulse Ox
97.7 F 60 16 116/57 99
07/06/25 07:15 07/06/25 08:23 07/06/25 07:15 07/06/25 08:23 07/06/25 07:15
I&O
07/05/25 07/06/25 07/07/25
06:59 06:59 06:59
Intake Total 1200 / 1200 910 / 910
Output Total 1130 / 1130 3065 / 3065
Balance 70 / 70 -2155 / -2155
Physical Exam
-
General: Well Developed, Well Nourished, No Apparent Distress and Comfortable
HEENT: Normocephalic, Atraumatic, Moist Mucous Membranes, No Ptosis, PERRLA and Nose Appears Normal
Respiratory: Clear to Auscultation and Non Labored Respirations
Cardiac: Regular Rhythm and S1/S2
Breast: Deferred by me
GI: Soft, Nontender, Nondistended and Normal Bowel Sounds
Genito-urinary: No Costovertebral Tender
Musculoskeletal: No Clubbing, No Cyanosis, No Edema and Other (Left foot dressing/boot)
Skin: Warm
Neuro: Awake, Alert, Oriented, AO x 3 and No Motor Deficits
Psych: Calm
[2025-07-06 15:05] VITALS: BP 136/66; PULSE 62; O2SAT 99
[2025-07-06 15:13] VITALS: BP 136/66; PULSE 63; O2SAT 98
[2025-07-06 15:15] VITALS: BP 132/76
[2025-07-06 16:48] LABS: Glucose - Point of Care 138 mg/dl (70-99)
[2025-07-06] MEDS: MIRALAX 17 GRAMS PO (17:26)
[2025-07-06 21:06] LABS: Glucose - Point of Care 156 mg/dl (70-99)
[2025-07-06] MEDS: VALTREX 500 MG PO (21:35)
[2025-07-06] MEDS: EFFEXOR XR 75 MG PO (21:35)
[2025-07-06 23:00] VITALS: BP 115/62
[2025-07-07] MEDS: DILAUDID 1 MG IV ×7 (02:02→23:32)
[2025-07-07 05:47] VITALS: BMI 30.2
[2025-07-07 06:38] LABS: Hematocrit 27.1 % (39.0-52.0); Hemoglobin 8.3 g/dL (13.0-18.0); Mean Corp Hgb Conc. 30.6 g/dL (33.0-37.0); Mean Corpuscular Volume 77.4 fL (80.0-94.0); Platelet Count 361 10^3/uL (130-400); Red Cell Dist. Width 20.4 % (11.5-14.5)
[2025-07-07 07:15] VITALS: BP 128/68
[2025-07-07 07:51] LABS: Glucose - Point of Care 109 mg/dl (70-99)
[2025-07-07] MEDS: NOVOLOG FLEXPEN-MODERATE RESISTANCE SC ×2 (08:05→16:12)
[2025-07-07] MEDS: LASIX 20 MG PO (08:26)
[2025-07-07] MEDS: ELIQUIS 5 MG PO ×2 (08:26→20:14)
[2025-07-07] MEDS: PACERONE 200 MG PO (08:26)
[2025-07-07] MEDS: TOPROL XL 25 MG PO (08:26)
[2025-07-07] MEDS: CUBICIN 20 MG IV (08:28)
--- NOTE | 2025-07-07 08:44 | W.PN.ID1 ---
Addendum entered and electronically signed by Sophie Willingham MD 07/07/25 11:20:
I saw and evaluated the patient. I reviewed the resident�s note and agree with findings and plan as documented in the resident�s note.
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
.04/21/25 s/p arthrodesis and Achilles tendon lengthening
# MRSA bacteremia x 2 sets - foot source
# Fever resolved
# Recent h/o MRSA bacteremia, septic arthritis of left shoulder s/p washout completed close to 12 weeks of IV abx at OSH (12/2024)
# DM with Charcot arthropathy
- TTE: echodensity AV likely calcification
- Repeat blood cultures neg to date
- 07/01/25 s/p OR washout,debridement -> OR cx MRSA
- OR Friday for HW removal and application of ring external fixation
- Continue Daptomycin 1000 IV q24 x 6 weeks through 08/10/25
Follow weekly CK (normal) while on daptomycin
Hold statin while on daptomycin.
-Infusion sheet submitted to heel caser 07/05.
- Place Picc when close to discharge.
Original Note:
Date of Service
Date of Service: July 07, 2025
AFVSS. Reports some constipation. No other complaints today.
Today's Communication
Podiatry plan for OR friday : application of ring exfix LLE
Continue with daptomycin for now
Continue to hold atorvastatin while on daptomycin
Assessment / Plan
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
-----04/21/25 s/p arthrodesis and Achilles tendon lengthening
# MRSA bacteremia x 2 sets - foot source
# Fever resolved
# Recent h/o MRSA bacteremia, septic arthritis of left shoulder s/p washout completed close to 12 weeks of IV abx at OSH (12/2024)
# DM with Charcot arthropathy
- Ankle MRI: large tibiotalar joint effusion
- TTE: echodensity AV likely calcification
- Repeat blood cultures neg to date
- 07/01/25 s/p OR washout,debridement -> OR cx MRSA
-----Podiatry plan for OR friday : application of ring external fixation LLE
- Continue daptomycin # day 2.(He was on vancomycin for 5 days)
- Plan for Daptomycin 1000 IV q24 x 6 weeks through 08/10/25
Follow CK while on daptomycin; initial CK of 36
Hold statin while on daptomycin.
Chief Complaint
-: Other (Left foot pain and swelling)
Subjective / Review of Systems
No new complaints
Review of Systems: No Fever, No Chills, No Headache, No Cough, No Abdominal Pain, No Nausea, No Vomiting, Joint Pain and No Skin Rash
Vital Signs / Physical Exam
Vital Signs
Vital Signs
Temp Pulse Resp BP Pulse Ox
98.0 F 67 16 128/68 97
07/07/25 07:15 07/07/25 07:15 07/07/25 07:15 07/07/25 07:15 07/07/25 07:15
Physical Exam
Constitutional: No Acute Distress and Comfortable
Cardiovascular: Regular Rate and S1/S2
Pulmonary: Clear and Non Labored
Gastrointestinal: Soft and Non Tender
Musculoskeletal: Other (Left lower extremity splinted and wrapped in Kurt)
Neurological: Awake, Alert and Oriented
Psychological: Calm
Objective Data
Lab Data
Lab Results
07/07/25 06:10
07/04/25 06:41
Estimated Creat Clear 119 ml/min 07/04/25 06:41
Lactic Acid Cancelled 06/29/25 22:00
Total Bilirubin 0.5 mg/dl (0.2-1.3) 06/29/25 15:15
AST 32 U/L (17-59) 06/29/25 15:15
ALT 28 U/L (0-50) 06/29/25 15:15
Alkaline Phosphatase 103 U/L (38-126) 06/29/25 15:15
Most recent labs reviewed.
Microbiology: Report Reviewed
Micro Results:
07/02/25 07:55 Blood Culture - Final
Blood/Venous No Growth - Final Report
07/02/25 07:19 Blood Culture - Final
Blood/Venous No Growth - Final Report
07/01/25 16:34 Anaerobic Culture - Final
Ankle - Left NO ANAEROBES ISOLATED
07/01/25 16:34 Wound Culture - Final
Ankle - Left Staph aureus MRSA
Gram Stain - Final
06/30/25 10:47 Blood Culture - Final
Blood/Venous No Growth - Final Report
06/30/25 10:18 Blood Culture - Final
Blood/Venous No Growth - Final Report
06/29/25 18:11 Blood Culture - Final
Blood/Venous Staph aureus MRSA
Gram Stain - Final
06/29/25 18:03 Blood Culture - Final
Blood/Venous Staph aureus MRSA
Gram Stain - Final
CR Foot - Left 06/29/25:Postsurgical changes.
Diffuse soft tissue swelling.
Prominent soft tissue anterior to the tibiotalar articulation, suggesting a large tibiotalar joint effusion.
No definitive radiographic evidence for bone destruction/osteomyelitis.
US Periph Venous LOWER Ext LT 06/29/25: no evidence of DVT
MR Left Ankle Without 06/30/2025:
Large tibiotalar joint effusion with prominent anterior extension as well as prominent anterolateral, lateral, and posterolateral extension, extending superficial to the fibula and the peroneal tendons. Findings are suspicious for infected joint
effusion/septic arthritis. As warranted, consideration for further evaluation with arthrocentesis.
Fairly extensive marrow signal intensity abnormality with decreased T1 and increased T2 and STIR signal, as described above. This marrow signal intensity abnormality is nonspecific, with main differential considerations of osteomyelitis and/or
neuropathic arthropathy. Consideration for follow-up radiography to assess for any progressive bony destruction.
Subcutaneous edema, greater dorsally. No evidence for soft tissue abscess.
[2025-07-07 11:52] LABS: Glucose - Point of Care 156 mg/dl (70-99)
[2025-07-07] MEDS: NOVOLOG FLEXPEN-MODERATE RESISTANCE 1 UNITS SC (12:49)
--- NOTE | 2025-07-07 13:07 | W.PN.HOSP.TC ---
Today's Communication/Plan
-
Podiatry plan for OR friday
s/p PICC line.
Assessment / Plan
Assessment / Plan
Impression:
Patient is a 70y M with PMH significant for A-Fib, DM-II and Charcot foot s/p surgery on 04/21/25 who presents to ED complaining of L foot pain and swelling x 2 days.
Left foot/ankle abscess
MRSA bacteremia.
Podiatry plan for OR friday : application of ring exfix LLE
Conditions prior to admission:
Status post double arthrodesis and Achilles lengthening on 04/21/2025
History of of MRSA bacteremia with left shoulder septic arthritis surgically treated at [facility] completed 6 weeks of antibiotics January - February 2025.
Chronic persistent atrial fibrillation baseline anticoagulation with Eliquis
Chronic CHF unknown type.
IDDM.
Chronic microcytic anemia.
Obesity due to excessive calories
Obstructive sleep apnea on CPAP.
Assessment /Plan
Left Foot Infection / Charcot Foot
MRSA bacteremia, repeat blood cultures so far negative
Infected joint effusion/septic arthritis
Possible Osteomyelitis of the Left foot
- s/p left ankle arthrotomy w/ Ankle joint pinning 07/01; plan for removal of pins and placement of rods as per podiatry
- Continue IV abx for now. Vancomycin.
- Wound culture MRSA
- Drain in place.
-Echocardiogram - Echodensity on the aortic surface of the left coronary cusp, likely calcification though a vegetation cannot be excluded with certainty; No obvious vegetation- therefore will hold on further LYDIA at this time; other source (foot) is
most likely culprit.
-Repeat Blood cultures remain negative.
Appreciate infectious disease input, patient will need PICC line and prolonged IV antibiotic.
07/05
Follow-up with podiatry recommendations.
07/06
Podiatry plan for OR friday : application of ring exfix LLE
07/07
s/p PICC line
Chronic Persistent Atrial Fibrillation
- Stable. s/p prior catheter ablation.
- Hemoglobin still low but will start Eliquis tonight and proceed with 1 unit of blood transfusion.
- Continue metoprolol, amiodarone with holding parameters.
Chronic diastolic CHF
- Stable. Euvolemic.
-resume lasix
- Follow I/Os, daily weights, etc.
�EF stable
DM-II
- Stable. Basal : bolus insulin regimen for now.
Acute blood loss anemia
Acute on chronic Microcytic Anemia
- No significant improvement from post-op state 2 months ago.
- Iron studies consistent with mild iron deficiency and anemia of chronic inflammation
- Follow for changes in H&H.
- No evidence of acute bleeding, etc at present.
- Holding on IV iron with active infection
07/05
Hemoglobin 7.0.
Proceed with 1 unit of blood transfusion
- Resume Eliquis tonight and continue to monitor Hb
07/06
Hemoglobin stable
Obesity due to excess calories
MELBA not on CPAP
- Affects all aspects of care.
- Encourage healthy diet and activity as able with goal of weight loss.
CODE STATUS: Full code
DVT prophylaxis: Resume Eliquis if hemoglobin is
Diet: DM diet
Disposition: Podiatry plan for OR friday
.
Total time spent on today's encounter was 55 minutes which included time spent in counseling the patient/family regarding diagnosis and treatment plan as listed above, goals of care, and symptom management. Case was discussed with nursing staff,
specialists, and care coordinators/case management. All labs and imaging personally reviewed by me. Remainder the time spent in detailed review of previous records, lab data, imaging, and other medical provider documentation.
Anticipated Discharge: > 48 hours
Subjective/Interval History
-
Date of Service: July 07, 2025
Patient seen and examined at bedside, denies any chest pain or shortness of breath, no abdominal pain, no nausea, no vomiting, no diarrhea , has constipation.
Objective Data
-
Labs:
Laboratory Results
07/07/25
06:10
WBC 10.2
Hgb 8.3 L
Hct 27.1 L
Plt Count 361
Vital Signs:
Vital Signs
Temp Pulse Resp BP Pulse Ox
98.0 F 67 16 128/68 97
07/07/25 07:15 07/07/25 07:15 07/07/25 07:15 07/07/25 07:15 07/07/25 07:15
I&O
07/06/25 07/07/25 07/08/25
06:59 06:59 06:59
Intake Total 910 / 910 960 / 960
Output Total 3065 / 3065 1530 / 1530
Balance -2155 / -2155 -570 / -570
Physical Exam
-
General: Well Developed, Well Nourished, No Apparent Distress and Comfortable
HEENT: Normocephalic, Atraumatic, Moist Mucous Membranes, No Ptosis, PERRLA and Nose Appears Normal
Respiratory: Clear to Auscultation and Non Labored Respirations
Cardiac: Regular Rhythm and S1/S2
Breast: Deferred by me
GI: Soft, Nontender, Nondistended and Normal Bowel Sounds
Genito-urinary: No Costovertebral Tender
Musculoskeletal: No Clubbing, No Cyanosis, No Edema and Other (Left foot dressing/boot)
Skin: Warm
Neuro: Awake, Alert, Oriented, AO x 3 and No Motor Deficits
Psych: Calm
[2025-07-07 15:27] VITALS: BP 133/61
[2025-07-07 15:57] LABS: Glucose - Point of Care 122 mg/dl (70-99)
[2025-07-07] MEDS: MIRALAX 17 GRAMS PO (16:15)
[2025-07-07 21:46] LABS: Glucose - Point of Care 144 mg/dl (70-99)
[2025-07-07] MEDS: EFFEXOR XR 75 MG PO (21:53)
[2025-07-07] MEDS: VALTREX 500 MG PO (21:54)
[2025-07-07 23:09] VITALS: BP 121/62
[2025-07-08] MEDS: DILAUDID 1 MG IV ×6 (04:20→23:03)
[2025-07-08 05:15] LABS: Hematocrit 26.7 % (39.0-52.0); Hemoglobin 8.4 g/dL (13.0-18.0); Mean Corp Hgb Conc. 31.5 g/dL (33.0-37.0); Mean Corpuscular Volume 78.3 fL (80.0-94.0); Platelet Count 349 10^3/uL (130-400); Red Cell Dist. Width 20.5 % (11.5-14.5)
[2025-07-08 05:39] LABS: Blood Urea Nitrogen 14 mg/dl (9-20); Calcium 8.5 mg/dl (8.4-10.2); Carbon Dioxide 29 mmol/L (22-30); Chloride 106 mmol/L (98-107); Estimated Creatinine Clearance 93 ml/min; Glucose 122 mg/dl (70-99); Potassium 3.6 mmol/L (3.5-5.1); Sodium 139 mmol/L (135-145); eGFR > 60.00
[2025-07-08 06:00] VITALS: BMI 29.9
[2025-07-08] MEDS: PACERONE 200 MG PO (07:50)
[2025-07-08] MEDS: ELIQUIS 5 MG PO (07:50)
[2025-07-08] MEDS: LASIX 20 MG PO (07:50)
[2025-07-08] MEDS: TOPROL XL 25 MG PO (07:51)
[2025-07-08] MEDS: CUBICIN 20 MG IV (07:56)
[2025-07-08] MEDS: NOVOLOG FLEXPEN-MODERATE RESISTANCE SC ×2 (07:57→18:10)
[2025-07-08 08:06] LABS: Glucose - Point of Care 130 mg/dl (70-99)
--- NOTE | 2025-07-08 08:36 | W.PN.ID1 ---
Addendum entered and electronically signed by Sophie Willingham MD 07/08/25 12:57:
I saw and evaluated the patient. I reviewed the resident�s note and agree with findings and plan as documented in the resident�s note.
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
.04/21/25 s/p arthrodesis and Achilles tendon lengthening
# MRSA bacteremia x 2 sets - foot source
# Fever resolved
# Recent h/o MRSA bacteremia, septic arthritis of left shoulder s/p washout completed close to 12 weeks of IV abx at OSH (12/2024)
# DM with Charcot arthropathy
- TTE: echodensity AV likely calcification
- Repeat blood cultures neg to date
- 07/01/25 s/p OR washout,debridement -> OR cx MRSA
- OR Friday for HW removal and application of ring external fixation
- Continue Daptomycin 1000 IV q24 x 6 weeks through 08/10/25
Follow weekly CK (normal) while on daptomycin
Hold statin while on daptomycin.
-Infusion sheet submitted to caseworker intake 07/05.
- Place Picc when close to discharge.
Original Note:
Date of Service
Date of Service: July 08, 2025
AFVSS. Offers no new complaints.
Today's Communication
Podiatry plan for OR friday : application of ring exfix LLE
Continue with daptomycin for now
Continue to hold atorvastatin while on daptomycin
recheck CK on friday; ordered
Assessment / Plan
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
-----04/21/25 s/p arthrodesis and Achilles tendon lengthening
# MRSA bacteremia x 2 sets - foot source
# Fever resolved
# Recent h/o MRSA bacteremia, septic arthritis of left shoulder s/p washout completed close to 12 weeks of IV abx at OSH (12/2024)
# DM with Charcot arthropathy
- Ankle MRI: large tibiotalar joint effusion
- TTE: echodensity AV likely calcification
- Repeat blood cultures neg
- 07/01/25 s/p OR washout,debridement -> OR cx MRSA
-----Podiatry plan for OR friday : application of ring external fixation LLE
- Continue daptomycin # day 3.(He was on vancomycin for 5 days)
- Plan for Daptomycin 1000 IV q24 x 6 weeks through 08/10/25
Follow CK while on daptomycin; initial CK of 36; recheck on friday
Hold statin while on daptomycin.
Chief Complaint
-: Other (Left foot pain and swelling)
Subjective / Review of Systems
No new complaints
Review of Systems: No Fever, No Chills, No Headache, No Cough, No Abdominal Pain, No Nausea, No Vomiting, Joint Pain and No Skin Rash
Vital Signs / Physical Exam
Vital Signs
Vital Signs
Temp Pulse Resp BP Pulse Ox
97.9 F 69 18 112/58 97
07/07/25 23:09 07/08/25 07:51 07/07/25 23:09 07/08/25 07:51 07/07/25 23:09
Physical Exam
Constitutional: No Acute Distress and Comfortable
Cardiovascular: Regular Rate and S1/S2
Pulmonary: Clear and Non Labored
Gastrointestinal: Soft and Non Tender
Musculoskeletal: Other (Left lower extremity splinted and wrapped in Kurt))
Neurological: Awake, Alert and Oriented
Psychological: Calm
Objective Data
Lab Data
Lab Results
07/08/25 04:51
07/08/25 04:51
Estimated Creat Clear 93 ml/min 07/08/25 04:51
Lactic Acid Cancelled 06/29/25 22:00
Total Bilirubin 0.5 mg/dl (0.2-1.3) 06/29/25 15:15
AST 32 U/L (17-59) 06/29/25 15:15
ALT 28 U/L (0-50) 06/29/25 15:15
Alkaline Phosphatase 103 U/L (38-126) 06/29/25 15:15
Most recent labs reviewed.
Micro Results:
07/02/25 07:55 Blood Culture - Final
Blood/Venous No Growth - Final Report
07/02/25 07:19 Blood Culture - Final
Blood/Venous No Growth - Final Report
07/01/25 16:34 Anaerobic Culture - Final
Ankle - Left NO ANAEROBES ISOLATED
07/01/25 16:34 Wound Culture - Final
Ankle - Left Staph aureus MRSA
Gram Stain - Final
06/30/25 10:47 Blood Culture - Final
Blood/Venous No Growth - Final Report
06/30/25 10:18 Blood Culture - Final
Blood/Venous No Growth - Final Report
06/29/25 18:11 Blood Culture - Final
Blood/Venous Staph aureus MRSA
Gram Stain - Final
06/29/25 18:03 Blood Culture - Final
Blood/Venous Staph aureus MRSA
Gram Stain - Final
CR Foot - Left 06/29/25:Postsurgical changes.
Diffuse soft tissue swelling.
Prominent soft tissue anterior to the tibiotalar articulation, suggesting a large tibiotalar joint effusion.
No definitive radiographic evidence for bone destruction/osteomyelitis.
US Periph Venous LOWER Ext LT 06/29/25: no evidence of DVT
MR Left Ankle Without 06/30/2025:
Large tibiotalar joint effusion with prominent anterior extension as well as prominent anterolateral, lateral, and posterolateral extension, extending superficial to the fibula and the peroneal tendons. Findings are suspicious for infected joint
effusion/septic arthritis. As warranted, consideration for further evaluation with arthrocentesis.
Fairly extensive marrow signal intensity abnormality with decreased T1 and increased T2 and STIR signal, as described above. This marrow signal intensity abnormality is nonspecific, with main differential considerations of osteomyelitis and/or
neuropathic arthropathy. Consideration for follow-up radiography to assess for any progressive bony destruction.
Subcutaneous edema, greater dorsally. No evidence for soft tissue abscess.
--- NOTE | 2025-07-08 11:02 | W.PN.HOSP.TC ---
Today's Communication/Plan
-
Podiatry plan for OR friday
Hold Eliquis
Assessment / Plan
Assessment / Plan
Impression:
Patient is a 70y M with PMH significant for A-Fib, DM-II and Charcot foot s/p surgery on 04/21/25 who presents to ED complaining of L foot pain and swelling x 2 days.
Left foot/ankle abscess
MRSA bacteremia.
Podiatry plan for OR friday : application of ring exfix LLE
Conditions prior to admission:
Status post double arthrodesis and Achilles lengthening on 04/21/2025
History of of MRSA bacteremia with left shoulder septic arthritis surgically treated at [facility] completed 6 weeks of antibiotics January - February 2025.
Chronic persistent atrial fibrillation baseline anticoagulation with Eliquis
Chronic CHF unknown type.
IDDM.
Chronic microcytic anemia.
Obesity due to excessive calories
Obstructive sleep apnea on CPAP.
Assessment /Plan
Left Foot Infection / Charcot Foot
MRSA bacteremia, repeat blood cultures so far negative
Infected joint effusion/septic arthritis
Possible Osteomyelitis of the Left foot
- s/p left ankle arthrotomy w/ Ankle joint pinning 07/01; plan for removal of pins and placement of rods as per podiatry
- Continue IV abx for now. Vancomycin.
- Wound culture MRSA
- Drain in place.
-Echocardiogram - Echodensity on the aortic surface of the left coronary cusp, likely calcification though a vegetation cannot be excluded with certainty; No obvious vegetation- therefore will hold on further LYDIA at this time; other source (foot) is
most likely culprit.
-Repeat Blood cultures remain negative.
Appreciate infectious disease input, patient will need PICC line and prolonged IV antibiotic.
07/05
Follow-up with podiatry recommendations.
07/06
Podiatry plan for OR friday : application of ring exfix LLE
9/4
s/p PICC line
07/08
OR on Friday, Eliquis on hold
Chronic Persistent Atrial Fibrillation
- Stable. s/p prior catheter ablation.
- Hemoglobin still low but will start Eliquis tonight and proceed with 1 unit of blood transfusion.
- Continue metoprolol, amiodarone with holding parameters.
07/08
Eliquis on hold for the OR
Chronic diastolic CHF
- Stable. Euvolemic.
-resume lasix
- Follow I/Os, daily weights, etc.
�EF stable
DM-II
- Stable. Basal : bolus insulin regimen for now.
Acute blood loss anemia
Acute on chronic Microcytic Anemia
- No significant improvement from post-op state 2 months ago.
- Iron studies consistent with mild iron deficiency and anemia of chronic inflammation
- Follow for changes in H&H.
- No evidence of acute bleeding, etc at present.
- Holding on IV iron with active infection
07/05
Hemoglobin 7.0.
Proceed with 1 unit of blood transfusion
- Resume Eliquis tonight and continue to monitor Hb
07/06
Hemoglobin stable
Obesity due to excess calories
MELBA not on CPAP
- Affects all aspects of care.
- Encourage healthy diet and activity as able with goal of weight loss.
CODE STATUS: Full code
DVT prophylaxis: Eliquis on hold for the OR
Diet: DM diet
Disposition: Podiatry plan for OR friday
.
Total time spent on today's encounter was 55 minutes which included time spent in counseling the patient/family regarding diagnosis and treatment plan as listed above, goals of care, and symptom management. Case was discussed with nursing staff,
specialists, and care coordinators/case management. All labs and imaging personally reviewed by me. Remainder the time spent in detailed review of previous records, lab data, imaging, and other medical provider documentation.
Anticipated Discharge: > 48 hours
Subjective/Interval History
-
Date of Service: July 08, 2025
Patient seen and examined at bedside, denies any chest pain or shortness of breath, no abdominal pain, no nausea, no vomiting, no diarrhea or constipation.
Objective Data
-
Labs:
Laboratory Results
07/08/25
04:51
WBC 8.5
Hgb 8.4 L
Hct 26.7 L
Plt Count 349
Sodium 139
Potassium 3.6
Chloride 106
Carbon Dioxide 29
BUN 14
Creatinine 0.8
Glucose 122 H
Calcium 8.5
Vital Signs:
Vital Signs
Temp Pulse Resp BP Pulse Ox
97.9 F 69 18 112/58 97
07/07/25 23:09 07/08/25 07:51 07/07/25 23:09 07/08/25 07:51 07/07/25 23:09
I&O
07/07/25 07/08/25 07/09/25
06:59 06:59 06:59
Intake Total 960 / 960 1720 / 1720
Output Total 1530 / 1530 2004 250 / 250
Balance -570 / -570 -285 / -285 -250 / -250
Physical Exam
-
General: Well Developed, Well Nourished, No Apparent Distress and Comfortable
HEENT: Normocephalic, Atraumatic, Moist Mucous Membranes, No Ptosis, PERRLA and Nose Appears Normal
Respiratory: Clear to Auscultation and Non Labored Respirations
Cardiac: Regular Rhythm and S1/S2
Breast: Deferred by me
GI: Soft, Nontender, Nondistended and Normal Bowel Sounds
Genito-urinary: No Costovertebral Tender
Musculoskeletal: No Clubbing, No Cyanosis, No Edema and Other (Left foot dressing/boot)
Skin: Warm
Neuro: Awake, Alert, Oriented, AO x 3 and No Motor Deficits
Psych: Calm
[2025-07-08 11:40] LABS: Glucose - Point of Care 154 mg/dl (70-99)
[2025-07-08] MEDS: NOVOLOG FLEXPEN-MODERATE RESISTANCE 1 UNITS SC (11:43)
[2025-07-08 12:38] VITALS: BP 118/77; PULSE 73; O2SAT 98
--- NOTE | 2025-07-08 14:30 | CM ---
CM reviewed chart, plan for OR Friday. Will update [facility] and [facility] upon medical progress in hospital. CM will continue to follow for all discharge planning needs.
Plan; OR Friday
[2025-07-08] MEDS: MIRALAX PO ×2 (16:11→16:16)
[2025-07-08 16:16] VITALS: BP 125/66
[2025-07-08 17:52] LABS: Glucose - Point of Care 146 mg/dl (70-99)
[2025-07-08] MEDS: VALTREX 500 MG PO (21:18)
[2025-07-08] MEDS: EFFEXOR XR 75 MG PO (21:18)
[2025-07-08 22:15] LABS: Glucose - Point of Care 163 mg/dl (70-99)
[2025-07-08 23:47] VITALS: BP 121/59
[2025-07-09] MEDS: DILAUDID 1 MG IV ×7 (02:35→21:39)
[2025-07-09 07:00] VITALS: BP 129/75
[2025-07-09 07:42] LABS: Glucose - Point of Care 112 mg/dl (70-99)
[2025-07-09] MEDS: NOVOLOG FLEXPEN-MODERATE RESISTANCE SC ×2 (08:57→12:17)
[2025-07-09] MEDS: CUBICIN 20 MG IV (08:57)
[2025-07-09] MEDS: PACERONE 200 MG PO (08:59)
[2025-07-09] MEDS: LASIX 20 MG PO (08:59)
[2025-07-09] MEDS: TOPROL XL 25 MG PO (08:59)
--- NOTE | 2025-07-09 10:08 | W.PN.HOSP.TC ---
Today's Communication/Plan
-
Podiatry plan for OR friday
Hold Eliquis
Assessment / Plan
Assessment / Plan
Impression:
Patient is a 70y M with PMH significant for A-Fib, DM-II and Charcot foot s/p surgery on 04/21/25 who presents to ED complaining of L foot pain and swelling x 2 days.
Left foot/ankle abscess
MRSA bacteremia.
Podiatry plan for OR friday : application of ring exfix LLE
Assessment /Plan
Left Foot Infection / Charcot Foot
MRSA bacteremia, repeat blood cultures so far negative
Infected joint effusion/septic arthritis
Possible Osteomyelitis of the Left foot
- s/p left ankle arthrotomy w/ Ankle joint pinning 07/01; plan for removal of pins and placement of rods as per podiatry
- Continue IV abx for now. Vancomycin.
- Wound culture MRSA
- Drain in place.
-Echocardiogram - Echodensity on the aortic surface of the left coronary cusp, likely calcification though a vegetation cannot be excluded with certainty; No obvious vegetation- therefore will hold on further LYDIA at this time; other source (foot) is
most likely culprit.
-Repeat Blood cultures remain negative.
Appreciate infectious disease input, patient will need PICC line and prolonged IV antibiotic.
07/05
Follow-up with podiatry recommendations.
07/06
Podiatry plan for OR friday : application of ring exfix LLE
07/07
s/p PICC line
07/08
OR on Friday, Eliquis on hold
Chronic Persistent Atrial Fibrillation
- Stable. s/p prior catheter ablation.
- Hemoglobin still low but will start Eliquis tonight and proceed with 1 unit of blood transfusion.
- Continue metoprolol, amiodarone with holding parameters.
07/08
Eliquis on hold for the OR
Chronic diastolic CHF
- Stable. Euvolemic.
-resume lasix
- Follow I/Os, daily weights, etc.
�EF stable
DM-II
- Stable. Basal : bolus insulin regimen for now.
Acute blood loss anemia
Acute on chronic Microcytic Anemia
- No significant improvement from post-op state 2 months ago.
- Iron studies consistent with mild iron deficiency and anemia of chronic inflammation
- Follow for changes in H&H.
- No evidence of acute bleeding, etc at present.
- Holding on IV iron with active infection
07/05
Hemoglobin 7.0.
Proceed with 1 unit of blood transfusion
- Resume Eliquis tonight and continue to monitor Hb
07/06
Hemoglobin stable
Obesity due to excess calories
MELBA not on CPAP
- Affects all aspects of care.
- Encourage healthy diet and activity as able with goal of weight loss.
Conditions prior to admission:
Status post double arthrodesis and Achilles lengthening on 04/21/2025
History of of MRSA bacteremia with left shoulder septic arthritis surgically treated at [facility] completed 6 weeks of antibiotics January - February 2025.
Chronic persistent atrial fibrillation baseline anticoagulation with Eliquis
Chronic CHF unknown type.
IDDM.
Chronic microcytic anemia.
Obesity due to excessive calories
Obstructive sleep apnea on CPAP.
CODE STATUS: Full code
DVT prophylaxis: Eliquis on hold for the OR
Diet: DM diet
Disposition: Podiatry plan for OR friday
.
Total time spent on today's encounter was 55 minutes which included time spent in counseling the patient/family regarding diagnosis and treatment plan as listed above, goals of care, and symptom management. Case was discussed with nursing staff,
specialists, and care coordinators/case management. All labs and imaging personally reviewed by me. Remainder the time spent in detailed review of previous records, lab data, imaging, and other medical provider documentation.
Anticipated Discharge: > 48 hours
Subjective/Interval History
-
Date of Service: July 09, 2025
Patient seen and examined at bedside, denies any chest pain or shortness of breath, no abdominal pain, no nausea, no vomiting, no diarrhea or constipation.
Objective Data
-
Vital Signs:
Vital Signs
Temp Pulse Resp BP Pulse Ox
98.5 F 62 12 129/75 98
07/09/25 07:00 07/09/25 07:00 07/09/25 07:00 07/09/25 07:00 07/09/25 07:00
I&O
07/08/25 07/09/25 07/10/25
06:59 06:59 06:59
Intake Total 1720 / 1720 300 / 300
Output Total 2004 755 / 755
Balance -285 / -285 -455 / -455
Physical Exam
-
General: Well Developed, Well Nourished, No Apparent Distress and Comfortable
HEENT: Normocephalic, Atraumatic, Moist Mucous Membranes, No Ptosis, PERRLA and Nose Appears Normal
Respiratory: Clear to Auscultation and Non Labored Respirations
Cardiac: Regular Rhythm and S1/S2
Breast: Deferred by me
GI: Soft, Nontender, Nondistended and Normal Bowel Sounds
Genito-urinary: No Costovertebral Tender
Musculoskeletal: No Clubbing, No Cyanosis, No Edema and Other (Left foot dressing/boot)
Skin: Warm
Neuro: Awake, Alert, Oriented, AO x 3 and No Motor Deficits
Psych: Calm
[2025-07-09 12:02] LABS: Glucose - Point of Care 136 mg/dl (70-99)
[2025-07-09 15:00] VITALS: BP 120/63
[2025-07-09] MEDS: MIRALAX 17 GRAMS PO (15:31)
[2025-07-09 16:28] LABS: Glucose - Point of Care 150 mg/dl (70-99)
[2025-07-09] MEDS: NOVOLOG FLEXPEN-MODERATE RESISTANCE 1 UNITS SC (18:08)
[2025-07-09 21:26] LABS: Glucose - Point of Care 126 mg/dl (70-99)
[2025-07-09] MEDS: VALTREX 500 MG PO (21:39)
[2025-07-09] MEDS: EFFEXOR XR 75 MG PO (21:39)
[2025-07-09 23:36] VITALS: BP 131/65
[2025-07-10] MEDS: DILAUDID 1 MG IV ×7 (00:50→23:02)
[2025-07-10 05:25] VITALS: BMI 30.1
[2025-07-10 07:35] VITALS: BP 134/71
[2025-07-10 07:43] LABS: Glucose - Point of Care 108 mg/dl (70-99)
[2025-07-10] MEDS: NOVOLOG FLEXPEN-MODERATE RESISTANCE SC ×2 (08:45→16:37)
[2025-07-10] MEDS: CUBICIN 20 MG IV (09:31)
[2025-07-10] MEDS: PACERONE 200 MG PO (09:32)
[2025-07-10] MEDS: LASIX 20 MG PO (09:33)
[2025-07-10] MEDS: TOPROL XL 25 MG PO (09:33)
[2025-07-10 11:18] LABS: Glucose - Point of Care 182 mg/dl (70-99)
--- NOTE | 2025-07-10 12:27 | W.PN.HOSP.TC ---
Today's Communication/Plan
-
Podiatry plan for OR friday
Hold Eliquis
Assessment / Plan
Assessment / Plan
Impression:
Patient is a 70y M with PMH significant for A-Fib, DM-II and Charcot foot s/p surgery on 04/21/25 who presents to ED complaining of L foot pain and swelling x 2 days.
Left foot/ankle abscess
MRSA bacteremia.
Podiatry plan for OR friday : application of ring exfix LLE
Assessment /Plan
Left Foot Infection / Charcot Foot
MRSA bacteremia, repeat blood cultures so far negative
Infected joint effusion/septic arthritis
Possible Osteomyelitis of the Left foot
- s/p left ankle arthrotomy w/ Ankle joint pinning 07/01; plan for removal of pins and placement of rods as per podiatry
- Continue IV abx for now. Vancomycin.
- Wound culture MRSA
- Drain in place.
-Echocardiogram - Echodensity on the aortic surface of the left coronary cusp, likely calcification though a vegetation cannot be excluded with certainty; No obvious vegetation- therefore will hold on further LYDIA at this time; other source (foot) is
most likely culprit.
-Repeat Blood cultures remain negative.
Appreciate infectious disease input, patient will need PICC line and prolonged IV antibiotic.
07/05
Follow-up with podiatry recommendations.
07/06
Podiatry plan for OR friday : application of ring exfix LLE
07/07
s/p PICC line
07/08
OR on Friday, Eliquis on hold
07/09
Or tomorrow, social service arranging for home infusion after OR
Chronic Persistent Atrial Fibrillation
- Stable. s/p prior catheter ablation.
- Hemoglobin still low but will start Eliquis tonight and proceed with 1 unit of blood transfusion.
- Continue metoprolol, amiodarone with holding parameters.
07/08
Eliquis on hold for the OR
Chronic diastolic CHF
- Stable. Euvolemic.
-resume lasix
- Follow I/Os, daily weights, etc.
�EF stable
DM-II
- Stable. Basal : bolus insulin regimen for now.
Acute blood loss anemia
Acute on chronic Microcytic Anemia
- No significant improvement from post-op state 2 months ago.
- Iron studies consistent with mild iron deficiency and anemia of chronic inflammation
- Follow for changes in H&H.
- No evidence of acute bleeding, etc at present.
- Holding on IV iron with active infection
07/05
Hemoglobin 7.0.
Proceed with 1 unit of blood transfusion
- Resume Eliquis tonight and continue to monitor Hb
07/06
Hemoglobin stable
Obesity due to excess calories
MELBA not on CPAP
- Affects all aspects of care.
- Encourage healthy diet and activity as able with goal of weight loss.
Conditions prior to admission:
Status post double arthrodesis and Achilles lengthening on 04/21/2025
History of of MRSA bacteremia with left shoulder septic arthritis surgically treated at [facility] completed 6 weeks of antibiotics January - February 2025.
Chronic persistent atrial fibrillation baseline anticoagulation with Eliquis
Chronic CHF unknown type.
IDDM.
Chronic microcytic anemia.
Obesity due to excessive calories
Obstructive sleep apnea on CPAP.
CODE STATUS: Full code
DVT prophylaxis: Eliquis on hold for the OR
Diet: DM diet
Disposition: Podiatry plan for OR friday
.
Total time spent on today's encounter was 55 minutes which included time spent in counseling the patient/family regarding diagnosis and treatment plan as listed above, goals of care, and symptom management. Case was discussed with nursing staff,
specialists, and care coordinators/case management. All labs and imaging personally reviewed by me. Remainder the time spent in detailed review of previous records, lab data, imaging, and other medical provider documentation.
Anticipated Discharge: 24 - 48 hours
Subjective/Interval History
-
Date of Service: July 10, 2025
Patient seen and examined at bedside, denies any chest pain or shortness of breath, no abdominal pain, no nausea, no vomiting, no diarrhea or constipation.
Objective Data
-
Vital Signs:
Vital Signs
Temp Pulse Resp BP Pulse Ox
97.9 F 61 20 134/71 95
07/10/25 07:35 07/10/25 07:35 07/10/25 07:35 07/10/25 07:35 07/10/25 07:35
I&O
07/09/25 07/10/25 07/11/25
06:59 06:59 06:59
Intake Total 300 / 300 480 / 480
Output Total 755 / 755 1250 / 1250
Balance -455 / -455 -770 / -770
Physical Exam
-
General: Well Developed, Well Nourished, No Apparent Distress and Comfortable
HEENT: Normocephalic, Atraumatic, Moist Mucous Membranes, No Ptosis, PERRLA and Nose Appears Normal
Respiratory: Clear to Auscultation and Non Labored Respirations
Cardiac: Regular Rhythm and S1/S2
Breast: Deferred by me
GI: Soft, Nontender, Nondistended and Normal Bowel Sounds
Genito-urinary: No Costovertebral Tender
Musculoskeletal: No Clubbing, No Cyanosis, No Edema and Other (Left foot dressing/boot)
Skin: Warm
Neuro: Awake, Alert, Oriented, AO x 3 and No Motor Deficits
Psych: Calm
[2025-07-10] MEDS: NOVOLOG FLEXPEN-MODERATE RESISTANCE 1 UNITS SC (12:56)
[2025-07-10 15:00] VITALS: BP 128/61
[2025-07-10 16:32] LABS: Glucose - Point of Care 107 mg/dl (70-99)
[2025-07-10] MEDS: MIRALAX PO (18:40)
[2025-07-10] MEDS: EFFEXOR XR 75 MG PO (21:03)
[2025-07-10] MEDS: VALTREX 500 MG PO (21:03)
[2025-07-10 21:27] LABS: Glucose - Point of Care 126 mg/dl (70-99)
[2025-07-10 23:42] VITALS: BP 124/69
[2025-07-11] VITALS (13 sets, daily range): BP systolic 92–126; BP diastolic 53–76; BMI 29.6
[2025-07-11] MEDS: DILAUDID 1 MG IV ×5 (02:13→23:51)
[2025-07-11 05:29] LABS: Glucose - Point of Care 129 mg/dl (70-99)
[2025-07-11 06:28] LABS: Hematocrit 27.1 % (39.0-52.0); Hemoglobin 8.4 g/dL (13.0-18.0); Mean Corp Hgb Conc. 31.0 g/dL (33.0-37.0); Mean Corpuscular Volume 78.8 fL (80.0-94.0); Platelet Count 329 10^3/uL (130-400); Red Cell Dist. Width 20.7 % (11.5-14.5)
[2025-07-11 06:34] LABS: Blood Urea Nitrogen 16 mg/dl (9-20); Calcium 8.6 mg/dl (8.4-10.2); Carbon Dioxide 28 mmol/L (22-30); Chloride 106 mmol/L (98-107); Estimated Creatinine Clearance 93 ml/min; Glucose 128 mg/dl (70-99); Potassium 3.9 mmol/L (3.5-5.1); Sodium 138 mmol/L (135-145); eGFR > 60.00
--- NOTE | 2025-07-11 08:29 | W.PN.ID1 ---
Addendum entered and electronically signed by Sophie Willingham MD 07/11/25 12:15:
I saw and evaluated the patient. I reviewed the resident�s note and agree with findings and plan as documented in the resident�s note.
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
.04/21/25 s/p arthrodesis and Achilles tendon lengthening
# MRSA bacteremia x 2 sets - foot source
# Fever resolved
# Recent h/o MRSA bacteremia, septic arthritis of left shoulder s/p washout completed >6 weeks of IV abx at OSH (12/2024)
# DM with Charcot arthropathy
- TTE: echodensity AV likely calcification
- Repeat blood cultures neg to date
- 07/01/25 s/p OR washout,debridement -> OR cx MRSA
- OR today for HW removal and application of ring external fixation
- Continue Daptomycin 1000 IV q24 x 6 weeks from hardware removal, new end date 08/22/25
Follow weekly CK (normal) while on daptomycin
Follow weekly CBC/dif, CMP, ESR, CRP
Hold statin while on daptomycin.
- Updated Infusion sheet submitted to block and case maker 07/11.
Original Note:
Date of Service
Date of Service: July 11, 2025
AFVSS. offers no new complaints
Today's Communication
Podiatry plan for OR today : application of ring exfix LLE
Continue with daptomycin through 08/22/25
recheck ck weekly
Assessment / Plan
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
-----04/21/25 s/p arthrodesis and Achilles tendon lengthening
# MRSA bacteremia x 2 sets - foot source
# Fever resolved
# Recent h/o MRSA bacteremia, septic arthritis of left shoulder s/p washout completed close to 12 weeks of IV abx at OSH (12/2024)
# DM with Charcot arthropathy
- Ankle MRI: large tibiotalar joint effusion
- TTE: echodensity AV likely calcification
- Repeat blood cultures neg
- 07/01/25 s/p OR washout,debridement -> OR cx MRSA
-----Podiatry plan for OR today : application of ring external fixation LLE
- Continue daptomycin # day 6.(He was on vancomycin for 5 days)
- Plan for Daptomycin 1000 IV q24 x 6 weeks from OR today; through 08/22/25
Follow CK while on daptomycin; initial CK of 36; recheck today 48
Hold statin while on daptomycin.
Chief Complaint
-: Other (Left foot pain and swelling)
Subjective / Review of Systems
No new complaints
Review of Systems: No Fever, No Chills, No Headache, No Cough, No Abdominal Pain, No Nausea, No Vomiting, Joint Pain and No Skin Rash
Vital Signs / Physical Exam
Vital Signs
Vital Signs
Temp Pulse Resp BP Pulse Ox
97.8 F 64 16 126/53 100
07/11/25 07:15 07/11/25 07:15 07/11/25 07:15 07/11/25 07:15 07/11/25 07:15
Physical Exam
Constitutional: No Acute Distress and Comfortable
Cardiovascular: Regular Rate and S1/S2
Pulmonary: Clear and Non Labored
Gastrointestinal: Soft and Non Tender
Musculoskeletal: Other (LLE splinted and wrapped in moody)
Skin: Warm
Neurological: Awake, Alert and Oriented
Psychological: Calm
Objective Data
Lab Data
Lab Results
07/11/25 05:56
07/11/25 05:56
Estimated Creat Clear 93 ml/min 07/11/25 05:56
Lactic Acid Cancelled 06/29/25 22:00
Total Bilirubin 0.5 mg/dl (0.2-1.3) 06/29/25 15:15
AST 32 U/L (17-59) 06/29/25 15:15
ALT 28 U/L (0-50) 06/29/25 15:15
Alkaline Phosphatase 103 U/L (38-126) 06/29/25 15:15
Most recent labs reviewed.
Micro Results:
07/02/25 07:55 Blood Culture - Final
Blood/Venous No Growth - Final Report
07/02/25 07:19 Blood Culture - Final
Blood/Venous No Growth - Final Report
07/01/25 16:34 Anaerobic Culture - Final
Ankle - Left NO ANAEROBES ISOLATED
07/01/25 16:34 Wound Culture - Final
Ankle - Left Staph aureus MRSA
Gram Stain - Final
06/30/25 10:47 Blood Culture - Final
Blood/Venous No Growth - Final Report
06/30/25 10:18 Blood Culture - Final
Blood/Venous No Growth - Final Report
06/29/25 18:11 Blood Culture - Final
Blood/Venous Staph aureus MRSA
Gram Stain - Final
06/29/25 18:03 Blood Culture - Final
Blood/Venous Staph aureus MRSA
Gram Stain - Final
CR Foot - Left 06/29/25:Postsurgical changes.
Diffuse soft tissue swelling.
Prominent soft tissue anterior to the tibiotalar articulation, suggesting a large tibiotalar joint effusion.
No definitive radiographic evidence for bone destruction/osteomyelitis.
US Periph Venous LOWER Ext LT 06/29/25: no evidence of DVT
MR Left Ankle Without 06/30/2025:
Large tibiotalar joint effusion with prominent anterior extension as well as prominent anterolateral, lateral, and posterolateral extension, extending superficial to the fibula and the peroneal tendons. Findings are suspicious for infected joint
effusion/septic arthritis. As warranted, consideration for further evaluation with arthrocentesis.
Fairly extensive marrow signal intensity abnormality with decreased T1 and increased T2 and STIR signal, as described above. This marrow signal intensity abnormality is nonspecific, with main differential considerations of osteomyelitis and/or
neuropathic arthropathy. Consideration for follow-up radiography to assess for any progressive bony destruction.
Subcutaneous edema, greater dorsally. No evidence for soft tissue abscess.
[2025-07-11] MEDS: NOVOLOG FLEXPEN-MODERATE RESISTANCE SC ×3 (08:34→19:29)
[2025-07-11] MEDS: CUBICIN 20 MG IV (08:55)
[2025-07-11] MEDS: TOPROL XL 25 MG PO (09:01)
[2025-07-11] MEDS: PACERONE 200 MG PO (09:01)
[2025-07-11] MEDS: LASIX 20 MG PO (09:01)
[2025-07-11 12:07] LABS: Glucose - Point of Care 113 mg/dl (70-99)
--- NOTE | 2025-07-11 15:02 | CM ---
utility sales and service manager reviewed patient's chart and met with patient and patient to OR today for possible procedure, plan then is to home, patient and spouse live in a split level home with 6 steps to enter and 5 steps to one level, patient will need IV ABX
once a day at discharge and [facility] have received a consult, patient has been set up with [facility], ambulation transport to home as patient NWB with external fixator.
Plan; Home with [facility] and [facility], needs ambulance.
[facility].
[phone]

[facility]
[phone]
--- NOTE | 2025-07-11 15:17 | W.PN.HOSP.TC ---
Today's Communication/Plan
-
OR today
holding eliquis
Assessment / Plan
Assessment / Plan
Impression:
Patient is a 70y M with PMH significant for A-Fib, DM-II and Charcot foot s/p surgery on 04/21/25 who presents to ED complaining of L foot pain and swelling x 2 days.
Left foot/ankle abscess
MRSA bacteremia.
Podiatry plan for OR friday : application of ring exfix LLE
Assessment /Plan
Left Foot Infection / Charcot Foot
MRSA bacteremia, repeat blood cultures so far negative
Infected joint effusion/septic arthritis
Possible Osteomyelitis of the Left foot
- s/p left ankle arthrotomy w/ Ankle joint pinning 07/01; plan for removal of pins and placement of rods as per podiatry
- Continue IV abx for now. Vancomycin.
- Wound culture MRSA
- Drain in place.
-Echocardiogram - Echodensity on the aortic surface of the left coronary cusp, likely calcification though a vegetation cannot be excluded with certainty; No obvious vegetation- therefore will hold on further LYDIA at this time; other source (foot) is
most likely culprit.
-Repeat Blood cultures remain negative.
-Appreciate infectious disease input, patient will need PICC line and prolonged IV antibiotic.
-Podiatry plan for OR friday : application of ring exfix LLE
- Eliquis on hold
Chronic Persistent Atrial Fibrillation
- Stable. s/p prior catheter ablation.
- Hemoglobin still low but will start Eliquis tonight and proceed with 1 unit of blood transfusion.
- Continue metoprolol, amiodarone with holding parameters.
- Eliquis on hold for the OR
Chronic diastolic CHF
- Stable. Euvolemic.
-resume lasix
- Follow I/Os, daily weights, etc.
�EF stable
DM-II
- Stable. Basal : bolus insulin regimen for now.
Acute blood loss anemia
Acute on chronic Microcytic Anemia
- No significant improvement from post-op state 2 months ago.
- Iron studies consistent with mild iron deficiency and anemia of chronic inflammation
- Follow for changes in H&H.
- No evidence of acute bleeding, etc at present.
- Holding on IV iron with active infection
07/05
Hemoglobin 7.0.
Proceed with 1 unit of blood transfusion
- Resume Eliquis tonight and continue to monitor Hb
07/06
Hemoglobin stable
Obesity due to excess calories
MELBA not on CPAP
- Affects all aspects of care.
- Encourage healthy diet and activity as able with goal of weight loss.
Conditions prior to admission:
Status post double arthrodesis and Achilles lengthening on 04/21/2025
History of of MRSA bacteremia with left shoulder septic arthritis surgically treated at [facility] completed 6 weeks of antibiotics January - February 2025.
Chronic persistent atrial fibrillation baseline anticoagulation with Eliquis
Chronic CHF unknown type.
IDDM.
Chronic microcytic anemia.
Obesity due to excessive calories
Obstructive sleep apnea on CPAP.
CODE STATUS: Full code
DVT prophylaxis: Eliquis on hold for the OR
Diet: DM diet
Disposition: Podiatry plan for OR friday
.
Total time spent on today's encounter was 51 minutes which included time spent in counseling the patient/family regarding diagnosis and treatment plan as listed above, goals of care, and symptom management. Case was discussed with nursing staff,
specialists, and care coordinators/case management. All labs and imaging personally reviewed by me. Remainder the time spent in detailed review of previous records, lab data, imaging, and other medical provider documentation.
Anticipated Discharge: 24 - 48 hours
Subjective/Interval History
-
Date of Service: July 11, 2025
No acute events overnight
Objective Data
-
Labs:
Laboratory Results
07/11/25
05:56
WBC 7.0
Hgb 8.4 L
Hct 27.1 L
Plt Count 329
Sodium 138
Potassium 3.9
Chloride 106
Carbon Dioxide 28
BUN 16
Creatinine 0.8
Glucose 128 H
Calcium 8.6
Vital Signs:
Vital Signs
Temp Pulse Resp BP Pulse Ox
97.8 F 64 16 126/53 100
07/11/25 07:15 07/11/25 07:15 07/11/25 07:15 07/11/25 07:15 07/11/25 07:15
I&O
07/10/25 07/11/25 07/12/25
06:59 06:59 06:59
Intake Total 480 / 480 1480 / 1480
Output Total 1250 / 1250 775 / 775
Balance -770 / -770 705 / 705
Review of Systems
-
History Source: Patient
All other systems: Not reviewed unless documented
Physical Exam
-
General: Well Developed, Well Nourished, No Apparent Distress and Comfortable
HEENT: Normocephalic, Atraumatic, Moist Mucous Membranes, No Ptosis, PERRLA and Nose Appears Normal
Respiratory: Clear to Auscultation and Non Labored Respirations
Cardiac: Regular Rhythm and S1/S2
Breast: Deferred by me
GI: Soft, Nontender, Nondistended and Normal Bowel Sounds
Genito-urinary: No Costovertebral Tender
Musculoskeletal: No Clubbing, No Cyanosis, No Edema and Other (Left foot dressing/boot)
Skin: Warm
Neuro: Awake, Alert, Oriented, AO x 3 and No Motor Deficits
Psych: Calm
[2025-07-11 16:52] LABS: Glucose - Point of Care 112 mg/dl (70-99)
--- NOTE | 2025-07-11 18:22 | W.PN.UPDATE ---
Update Note
Progress Note Update
70M s/p left ankle Removal of Hardware with application of multiplanar external fixater.
- Strict NWB LLE
- Dressings remain C/D/I
- bone bx x 3 (talus, calcaneus, tibia) aerobic/anareobic cx x2
- abx per ID recs
- will reassess on AM rounds
[2025-07-11] MEDS: DILAUDID 0.5 MG IV ×3 (18:49→19:28)
[2025-07-11] MEDS: MIRALAX PO (19:29)
[2025-07-11] MEDS: VALTREX 500 MG PO (21:10)
[2025-07-11] MEDS: EFFEXOR XR 75 MG PO (21:10)
[2025-07-11 21:44] LABS: Glucose - Point of Care 239 mg/dl (70-99)
[2025-07-12] VITALS (7 sets, daily range): BP systolic 119–125; BP diastolic 57–65; PULSE 68; O2SAT 97; BMI 30.5
[2025-07-12] MEDS: DILAUDID 1 MG IV ×7 (03:06→21:40)
[2025-07-12 05:35] LABS: Hematocrit 28.5 % (39.0-52.0); Hemoglobin 8.8 g/dL (13.0-18.0); Mean Corp Hgb Conc. 30.9 g/dL (33.0-37.0); Mean Corpuscular Volume 78.5 fL (80.0-94.0); Platelet Count 339 10^3/uL (130-400); Red Cell Dist. Width 20.3 % (11.5-14.5)
[2025-07-12 05:55] LABS: ALT (SGPT) 22 U/L (0-50); AST (SGOT) 23 U/L (17-59); Albumin 3.2 g/dl (3.5-5.0); Alkaline Phosphatase 112 U/L (38-126); Blood Urea Nitrogen 21 mg/dl (9-20); Calcium 8.7 mg/dl (8.4-10.2); Carbon Dioxide 27 mmol/L (22-30); Chloride 104 mmol/L (98-107); Estimated Creatinine Clearance 93 ml/min; Glucose 194 mg/dl (70-99); Potassium 4.5 mmol/L (3.5-5.1); Sodium 137 mmol/L (135-145); Total Protein 8.2 g/dl (6.3-8.2); eGFR > 60.00
[2025-07-12 07:38] LABS: Glucose - Point of Care 183 mg/dl (70-99)
[2025-07-12] MEDS: NOVOLOG FLEXPEN-MODERATE RESISTANCE 1 UNITS SC ×3 (08:27→17:18)
[2025-07-12] MEDS: TOPROL XL 25 MG PO (08:28)
[2025-07-12] MEDS: PACERONE 200 MG PO (08:28)
[2025-07-12] MEDS: CUBICIN 20 MG IV (08:28)
[2025-07-12] MEDS: LASIX 20 MG PO (08:29)
--- NOTE | 2025-07-12 09:06 | W.PN.UPDATE ---
Update Note
Progress Note Update
70M s/p left ankle Removal of Hardware with application of multiplanar external fixater. Doing well this AM, no pain. no tenderness to palpation of calves, cft wnl, motor function intact to toes
- Strict NWB LLE
- Dressings remain C/D/I
-- On discharge home nursing changes 3 times per week pin care consisting of cleansing wires with hydrogen peroxide/alcohol, xeroform to pin sites, betadine paint to incisions, dsd
- bone bx x 3 (talus, calcaneus, tibia) aerobic/anareobic cx x2
- abx per ID recs
- may follow up in office
[2025-07-12 11:20] LABS: Glucose - Point of Care 186 mg/dl (70-99)
--- NOTE | 2025-07-12 11:54 | W.PN.ID1 ---
Date of Service
Date of Service: July 12, 2025
Today's Communication
From ID standpoint, OK to dc home when home IV set up.
Assessment / Plan
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
.04/21/25 s/p arthrodesis and Achilles tendon lengthening
# MRSA bacteremia x 2 sets - foot source
# Fever resolved
# Recent h/o MRSA bacteremia, septic arthritis of left shoulder s/p washout completed >6 weeks of IV abx at OSH (12/2024)
# DM with Charcot arthropathy
- TTE: echodensity AV likely calcification
- Repeat blood cultures neg to date
- 07/01/25 s/p OR washout,debridement -> OR cx MRSA
- 07/11 s/p all HW removal and application of ring external fixation
OR gram stain: GPC; cx's pending
- Continue Daptomycin 1000 IV q24 x 6 weeks from hardware removal through 08/22/25
Follow weekly CK (normal) while on daptomycin
Follow weekly CBC/dif, CMP, ESR, CRP
Hold statin while on daptomycin.
- Updated Infusion sheet submitted to case manager specialist 07/11.
Chief Complaint
-: Other (Left foot pain and swelling)
Subjective / Review of Systems
no complaints.
Vital Signs / Physical Exam
Vital Signs
Vital Signs
Temp Pulse Resp BP Pulse Ox
97.8 F 98 16 125/61 98
07/12/25 11:15 07/12/25 11:15 07/12/25 11:15 07/12/25 11:15 07/12/25 11:15
Physical Exam
Constitutional: No Acute Distress and Comfortable
Cardiovascular: Regular Rate and S1/S2
Pulmonary: Clear
Gastrointestinal: Soft, Non Tender and Non Distended
Extremities: Other (LLE external fixator in place)
Lines: PICC
Objective Data
Lab Data
Lab Results
07/12/25 04:58
07/12/25 04:58
Estimated Creat Clear 93 ml/min 07/12/25 04:58
Lactic Acid Cancelled 06/29/25 22:00
Total Bilirubin 0.5 mg/dl (0.2-1.3) 07/12/25 04:58
AST 23 U/L (17-59) 07/12/25 04:58
ALT 22 U/L (0-50) 07/12/25 04:58
Alkaline Phosphatase 112 U/L (38-126) 07/12/25 04:58
Most recent labs reviewed.
Micro Results:
07/11/25 16:00 Wound Culture - Pending
Heel - Left Gram Stain - Preliminary
07/11/25 16:00 Wound Culture - Pending
Ankle - Left Gram Stain - Preliminary
07/11/25 16:00 Anaerobic Culture - Pending
Ankle - Left
07/11/25 16:00 Anaerobic Culture - Pending
Heel - Left
07/02/25 07:55 Blood Culture - Final
Blood/Venous No Growth - Final Report
07/02/25 07:19 Blood Culture - Final
Blood/Venous No Growth - Final Report
07/01/25 16:34 Anaerobic Culture - Final
Ankle - Left NO ANAEROBES ISOLATED
07/01/25 16:34 Wound Culture - Final
Ankle - Left Staph aureus MRSA
Gram Stain - Final
06/30/25 10:47 Blood Culture - Final
Blood/Venous No Growth - Final Report
06/30/25 10:18 Blood Culture - Final
Blood/Venous No Growth - Final Report
06/29/25 18:11 Blood Culture - Final
Blood/Venous Staph aureus MRSA
Gram Stain - Final
06/29/25 18:03 Blood Culture - Final
Blood/Venous Staph aureus MRSA
Gram Stain - Final
CR Foot - Left 06/29/25:Postsurgical changes.
Diffuse soft tissue swelling.
Prominent soft tissue anterior to the tibiotalar articulation, suggesting a large tibiotalar joint effusion.
No definitive radiographic evidence for bone destruction/osteomyelitis.
US Periph Venous LOWER Ext LT 06/29/25: no evidence of DVT
MR Left Ankle Without 06/30/2025:
Large tibiotalar joint effusion with prominent anterior extension as well as prominent anterolateral, lateral, and posterolateral extension, extending superficial to the fibula and the peroneal tendons. Findings are suspicious for infected joint
effusion/septic arthritis. As warranted, consideration for further evaluation with arthrocentesis.
Fairly extensive marrow signal intensity abnormality with decreased T1 and increased T2 and STIR signal, as described above. This marrow signal intensity abnormality is nonspecific, with main differential considerations of osteomyelitis and/or
neuropathic arthropathy. Consideration for follow-up radiography to assess for any progressive bony destruction.
Subcutaneous edema, greater dorsally. No evidence for soft tissue abscess.
Care Review
Plan reviewed with: Physician (Dr. No)
--- NOTE | 2025-07-12 13:50 | W.PN.HOSP.TC ---
Today's Communication/Plan
-
Abx
Eliquis once cleared by podiatry
DC planning
Continue Daptomycin 1000 IV q24 x 6 weeks from hardware removal through 08/22/25
Follow weekly CK (normal) while on daptomycin
Follow weekly CBC/dif, CMP, ESR, CRP
Hold statin while on daptomycin
Strict NWB LLE
Dressings remain C/D/I
On discharge home nursing changes 3 times per week pin care consisting of cleansing wires with hydrogen peroxide/alcohol, xeroform to pin sites, betadine paint to incisions, dsd
bone bx x 3 (talus, calcaneus, tibia) aerobic/anareobic cx x2
F/u PCP, Podiatry, ID outpatient
Assessment / Plan
Assessment / Plan
Impression:
Patient is a 70y M with PMH significant for A-Fib, DM-II and Charcot foot s/p surgery on 04/21/25 who presents to ED complaining of L foot pain and swelling x 2 days.
Left foot/ankle abscess
MRSA bacteremia.
Podiatry plan for OR friday : application of ring exfix LLE
Assessment /Plan
Left Foot Infection / Charcot Foot
MRSA bacteremia, repeat blood cultures so far negative
Infected joint effusion/septic arthritis
Possible Osteomyelitis of the Left foot
- s/p left ankle arthrotomy w/ Ankle joint pinning 07/01; plan for removal of pins and placement of rods as per podiatry
- Continue IV abx for now. Vancomycin.
- Wound culture MRSA
- Drain in place.
-Echocardiogram - Echodensity on the aortic surface of the left coronary cusp, likely calcification though a vegetation cannot be excluded with certainty; No obvious vegetation- therefore will hold on further LYDIA at this time; other source (foot) is
most likely culprit.
-Repeat Blood cultures remain negative.
-Appreciate infectious disease input, patient will need PICC line and prolonged IV antibiotic.
-9/8 - left ankle Removal of Hardware with application of multiplanar external fixater.
- Strict NWB LLE
- Dressings remain C/D/I
-- On discharge home nursing changes 3 times per week pin care consisting of cleansing wires with hydrogen peroxide/alcohol, xeroform to pin sites, betadine paint to incisions, dsd
- bone bx x 3 (talus, calcaneus, tibia) aerobic/anareobic cx x2
- Eliquis once cleared by podiatry
Chronic Persistent Atrial Fibrillation
- Stable. s/p prior catheter ablation.
- Hemoglobin still low but will start Eliquis tonight and proceed with 1 unit of blood transfusion.
- Continue metoprolol, amiodarone with holding parameters.
- Eliquis once cleared by podiatry
Chronic diastolic CHF
- Stable. Euvolemic.
-resume lasix
- Follow I/Os, daily weights, etc.
�EF stable
DM-II
- Stable. Basal : bolus insulin regimen for now.
Acute blood loss anemia
Acute on chronic Microcytic Anemia
- No significant improvement from post-op state 2 months ago.
- Iron studies consistent with mild iron deficiency and anemia of chronic inflammation
- Follow for changes in H&H.
- No evidence of acute bleeding, etc at present.
- Holding on IV iron with active infection
07/05
Hemoglobin 7.0.
Proceed with 1 unit of blood transfusion
- Resume Eliquis tonight and continue to monitor Hb
07/06
Hemoglobin stable
Obesity due to excess calories
MELBA not on CPAP
- Affects all aspects of care.
- Encourage healthy diet and activity as able with goal of weight loss.
Conditions prior to admission:
Status post double arthrodesis and Achilles lengthening on 04/21/2025
History of of MRSA bacteremia with left shoulder septic arthritis surgically treated at [facility] completed 6 weeks of antibiotics January - February 2025.
Chronic persistent atrial fibrillation baseline anticoagulation with Eliquis
Chronic CHF unknown type.
IDDM.
Chronic microcytic anemia.
Obesity due to excessive calories
Obstructive sleep apnea on CPAP.
CODE STATUS: Full code
DVT prophylaxis: Eliquis on hold for the OR
Diet: DM diet
Disposition: DC tomorrow
.
Anticipated Discharge: Within 24 hours
Subjective/Interval History
-
Date of Service: July 12, 2025
s/p left ankle Removal of Hardware with application of multiplanar external fixater 07/11
Objective Data
-
Labs:
Laboratory Results
07/12/25
04:58
WBC 10.4
Hgb 8.8 L
Hct 28.5 L
Plt Count 339
Sodium 137
Potassium 4.5
Chloride 104
Carbon Dioxide 27
BUN 21 H
Creatinine 0.8
Glucose 194 H
Calcium 8.7
Total Bilirubin 0.5
AST 23
ALT 22
Alkaline Phosphatase 112
Vital Signs:
Vital Signs
Temp Pulse Resp BP Pulse Ox
97.8 F 98 16 125/61 98
07/12/25 11:15 07/12/25 11:15 07/12/25 11:15 07/12/25 11:15 07/12/25 11:15
I&O
07/11/25 07/12/25 07/13/25
06:59 06:59 06:59
Intake Total 1480 / 1480 150 / 150
Output Total 775 / 775 900 / 900 300 / 300
Balance 705 / 705 -750 / -750 -300 / -300
Review of Systems
-
History Source: Patient
All other systems: Not reviewed unless documented
Physical Exam
-
General: Well Developed, Well Nourished, No Apparent Distress and Comfortable
HEENT: Normocephalic, Atraumatic, Moist Mucous Membranes, No Ptosis, PERRLA and Nose Appears Normal
Respiratory: Clear to Auscultation and Non Labored Respirations
Cardiac: Regular Rhythm and S1/S2
Breast: Deferred by me
GI: Soft, Nontender, Nondistended and Normal Bowel Sounds
Genito-urinary: No Costovertebral Tender
Musculoskeletal: No Clubbing, No Cyanosis, No Edema and Other (Left foot dressing; multiplanar external fixater.)
Skin: Warm
Neuro: Awake, Alert, Oriented, AO x 3 and No Motor Deficits
Psych: Calm
[2025-07-12 16:48] LABS: Glucose - Point of Care 197 mg/dl (70-99)
[2025-07-12] MEDS: MIRALAX PO (17:19)
[2025-07-12] MEDS: ELIQUIS 5 MG PO (20:52)
[2025-07-12] MEDS: VALTREX 500 MG PO (20:55)
[2025-07-12] MEDS: EFFEXOR XR 75 MG PO (20:56)
[2025-07-12 21:00] LABS: Glucose - Point of Care 187 mg/dl (70-99)
[2025-07-13] MEDS: ROXICODONE 15 MG PO (00:38)
[2025-07-13] MEDS: DILAUDID 1 MG IV ×2 (01:29→06:40)
--- NOTE | 2025-07-13 01:36 | PTCARENOTE ---
Convinced pt to try managing pain with PO oxy instead of around the clock dilaudid since pt could potentially d/c tomorrow. Pt tried 15mg po oxy around 00:30 but pt called around 0130 stating the oxy did not touch his pain at all and was requesting
dilaudid, pt stated his left leg was 10/10 pain.
[2025-07-13 04:29] VITALS: BMI 30.3
[2025-07-13 06:08] LABS: Hematocrit 26.9 % (39.0-52.0); Hemoglobin 8.3 g/dL (13.0-18.0); Mean Corp Hgb Conc. 30.9 g/dL (33.0-37.0); Mean Corpuscular Volume 79.4 fL (80.0-94.0); Platelet Count 310 10^3/uL (130-400); Red Cell Dist. Width 20.3 % (11.5-14.5)
[2025-07-13 06:32] LABS: ALT (SGPT) 22 U/L (0-50); AST (SGOT) 25 U/L (17-59); Albumin 3.0 g/dl (3.5-5.0); Alkaline Phosphatase 102 U/L (38-126); Blood Urea Nitrogen 18 mg/dl (9-20); Calcium 8.3 mg/dl (8.4-10.2); Carbon Dioxide 29 mmol/L (22-30); Chloride 105 mmol/L (98-107); Estimated Creatinine Clearance 119 ml/min; Glucose 112 mg/dl (70-99); Potassium 4.0 mmol/L (3.5-5.1); Sodium 137 mmol/L (135-145); Total Protein 7.5 g/dl (6.3-8.2); eGFR > 60.00
[2025-07-13 07:13] VITALS: BP 119/67
[2025-07-13 07:46] LABS: Glucose - Point of Care 112 mg/dl (70-99)
[2025-07-13] MEDS: NOVOLOG FLEXPEN-MODERATE RESISTANCE SC (08:44)
[2025-07-13] MEDS: CUBICIN 20 MG IV (08:44)
[2025-07-13] MEDS: ELIQUIS 5 MG PO (08:45)
[2025-07-13] MEDS: LASIX 20 MG PO (08:45)
[2025-07-13] MEDS: PACERONE 200 MG PO (08:45)
[2025-07-13] MEDS: TOPROL XL 25 MG PO (08:46)
[2025-07-13] MEDS: PERCOCET 5/325 2 TABLET PO (09:53)
--- NOTE | 2025-07-13 10:57 | W.PN.HOSP.TC ---
Addendum entered and electronically signed by Ricardo No MD 07/13/25 17:29:
not on vanc* -is on dapto
[id number]
Original Note:
Today's Communication/Plan
-
Abx
pain control
Continue Daptomycin 1000 IV q24 x 6 weeks from hardware removal through 08/22/25
Follow weekly CK (normal) while on daptomycin
Follow weekly CBC/dif, CMP, ESR, CRP
Hold statin while on daptomycin
Strict NWB LLE
Dressings remain C/D/I
On discharge home nursing changes 3 times per week pin care consisting of cleansing wires with hydrogen peroxide/alcohol, xeroform to pin sites, betadine paint to incisions, dsd
bone bx x 3 (talus, calcaneus, tibia) aerobic/anareobic cx x2
F/u PCP, Podiatry, ID outpatient
Assessment / Plan
Assessment / Plan
Impression:
Patient is a 70y M with PMH significant for A-Fib, DM-II and Charcot foot s/p surgery on 04/21/25 who presents to ED complaining of L foot pain and swelling x 2 days.
Left foot/ankle abscess
MRSA bacteremia.
Podiatry plan for OR friday : application of ring exfix LLE
Assessment /Plan
Left Foot Infection / Charcot Foot
MRSA bacteremia, repeat blood cultures so far negative
Infected joint effusion/septic arthritis
Possible Osteomyelitis of the Left foot
- s/p left ankle arthrotomy w/ Ankle joint pinning 07/01; plan for removal of pins and placement of rods as per podiatry
- Continue IV abx for now. Vancomycin.
- Wound culture MRSA
- Drain in place.
-Echocardiogram - Echodensity on the aortic surface of the left coronary cusp, likely calcification though a vegetation cannot be excluded with certainty; No obvious vegetation- therefore will hold on further LYDIA at this time; other source (foot) is
most likely culprit.
-Repeat Blood cultures remain negative.
-Appreciate infectious disease input, patient will need PICC line and prolonged IV antibiotic.
-07/11 - left ankle Removal of Hardware with application of multiplanar external fixater.
- Strict NWB LLE
- Dressings remain C/D/I
-- On discharge home nursing changes 3 times per week pin care consisting of cleansing wires with hydrogen peroxide/alcohol, xeroform to pin sites, betadine paint to incisions, dsd
- bone bx x 3 (talus, calcaneus, tibia) aerobic/anareobic cx x2
- Eliquis cleared by podiatry
Chronic Persistent Atrial Fibrillation
- Stable. s/p prior catheter ablation.
- Hemoglobin still low but will start Eliquis tonight and proceed with 1 unit of blood transfusion.
- Continue metoprolol, amiodarone with holding parameters.
- Eliquis
Chronic diastolic CHF
- Stable. Euvolemic.
-resume lasix
- Follow I/Os, daily weights, etc.
�EF stable
DM-II
- Stable. Basal : bolus insulin regimen for now.
Acute blood loss anemia
Acute on chronic Microcytic Anemia
- No significant improvement from post-op state 2 months ago.
- Iron studies consistent with mild iron deficiency and anemia of chronic inflammation
- Follow for changes in H&H.
- No evidence of acute bleeding, etc at present.
- Holding on IV iron with active infection
- received 1 u prbc 07/05 - stable
-monitor cbc outpatient
Obesity due to excess calories
MELBA not on CPAP
- Affects all aspects of care.
- Encourage healthy diet and activity as able with goal of weight loss.
Conditions prior to admission:
Status post double arthrodesis and Achilles lengthening on 04/21/2025
History of of MRSA bacteremia with left shoulder septic arthritis surgically treated at [facility] completed 6 weeks of antibiotics January - February 2025.
Chronic persistent atrial fibrillation baseline anticoagulation with Eliquis
Chronic CHF unknown type.
IDDM.
Chronic microcytic anemia.
Obesity due to excessive calories
Obstructive sleep apnea on CPAP.
CODE STATUS: Full code
DVT prophylaxis: Eliquis
Diet: DM diet
Disposition: DC
More than 30 minutes spent in discharge including
Final examination of the patient
Summarizing hospital stay
Instructions for continuing care to all relevant caregivers
Preparation of discharge records, prescriptions, and referral forms
Total time spent (in minutes): 36
Anticipated Discharge: Today
Subjective/Interval History
-
Date of Service: July 13, 2025
No acute events overnight
Objective Data
-
Labs:
Laboratory Results
07/13/25
05:55
WBC 10.7
Hgb 8.3 L
Hct 26.9 L
Plt Count 310
Sodium 137
Potassium 4.0
Chloride 105
Carbon Dioxide 29
BUN 18
Creatinine 0.7
Glucose 112 H
Calcium 8.3 L
Total Bilirubin 0.6
AST 25
ALT 22
Alkaline Phosphatase 102
Vital Signs:
Vital Signs
Temp Pulse Resp BP Pulse Ox
98.2 F 64 18 119/67 96
07/13/25 07:13 07/13/25 07:13 07/13/25 07:13 07/13/25 07:13 07/13/25 07:13
I&O
07/12/25 07/13/25 07/14/25
06:59 06:59 06:59
Intake Total 150 / 150 1100 / 1100
Output Total 900 / 900 950 / 950
Balance -750 / -750 150 / 150
Review of Systems
-
History Source: Patient
All other systems: Not reviewed unless documented
Physical Exam
-
General: Well Developed, Well Nourished, No Apparent Distress and Comfortable
HEENT: Normocephalic, Atraumatic, Moist Mucous Membranes, No Ptosis, PERRLA and Nose Appears Normal
Respiratory: Clear to Auscultation and Non Labored Respirations
Cardiac: Regular Rhythm and S1/S2
Breast: Deferred by me
GI: Soft, Nontender, Nondistended and Normal Bowel Sounds
Genito-urinary: No Costovertebral Tender
Musculoskeletal: No Clubbing, No Cyanosis, No Edema and Other (Left foot dressing; multiplanar external fixater.)
Skin: Warm
Neuro: Awake, Alert, Oriented, AO x 3 and No Motor Deficits
Psych: Calm
--- NOTE | 2025-07-13 11:36 | CM ---
Patient is for discharge to home today with [facility] and [place] visiting nurses. Ambulance warehouse order picker for 11:30am, case picker reached out to [facility] pharmacist, [facility] to make him aware that patient's medication was not delivered to home yet.
The pharmacist assured case picker that medication would be delivered today. IMM completed.
Plan; Home with [facility] and [facility].
[facility].
[phone]

[facility]
[phone]
--- NOTE | 2025-07-13 12:02 | W.DS.TRANS ---
DC Summary - Tailor'S Aide
-
Discharge Instructions:
Discharge Diagnosis/Procedures Left Foot Infection / Charcot Foot
left ankle Removal of Hardware with application
of multiplanar external fixater
07/01/25 s/p OR washout,debridement -> OR cx
MRSA
- 07/11 s/p all HW removal and application of ring
external fixation
Diet Low Cholesterol,Low Fat,Diabetic, Carb
Controlled
Activity As tolerated
Additional Activity Strict NWB LLE
Blood Work cbc and cmp in 3-5 days with PCP
Follow weekly CK (normal) while on daptomycin
Follow weekly CBC/dif, CMP, ESR, CRP
Others Tests as per podiatry outpatient
Wound Care On discharge home nursing changes 3 times per
week pin care consisting of cleansing wires with
hydrogen peroxide/alcohol, xeroform to pin
sites, betadine paint to incisions, dsd
Instructions:
Stand-Alone Forms:
Changes to Home Medications: Yes
Discharge Medications:
DC Medications w/original date entered in [facility]
amiodarone 200 mg tablet 200 mg PO DAILY AFIB 04/14/25
apixaban 5 mg tablet (Eliquis) 5 mg PO BID Blood Clot Prevention/Tx 04/14/25
atorvastatin 10 mg tablet 10 mg PO QPM High Cholesterol 04/14/25
Held on 07/13/25. Instructions: Resume on 08/24/25. hold while on daptomycin
furosemide 20 mg tablet 20 mg PO DAILY Fluid Retention/Swelling 04/14/25
insulin NPH-regular 70-30 U-100 insulin 100 unit/mL subcutaneous pen (Novolin 70-30 FlexPen U-100 Insulin) 20 unit SC HS Diabetes 04/14/25
insulin NPH-regular 70-30 U-100 insulin 100 unit/mL subcutaneous pen (Novolin 70-30 FlexPen U-100 Insulin) 40 unit SC DAILY Diabetes 04/14/25
metoprolol succinate 25 mg tablet,extended release 24 hr 25 mg PO DAILY Blood Pressure 04/14/25
tirzepatide 7.5 mg/0.5 mL subcutaneous pen injector (Mounjaro) 7.5 mg SC ESPINAL Diabetes 04/14/25
valacyclovir 500 mg tablet 500 mg PO HS ANTI VIRAL 04/14/25
venlafaxine 75 mg capsule,extended release 24 hr (Effexor XR) 75 mg PO HS Mental Health/Anxiety 04/14/25
oxycodone 15 mg tablet 15 mg PO Q4HPRN PRN severe pain #18 tabs 04/26/25
potassium chloride 10 mEq tablet,extended release 10 meq PO DAILY Supplement 06/29/25
DAPTOmycin [Cubicin] 1,000 mg As Directed mls/hr IV Q24H 07/13/25
oxycodone-acetaminophen 10 mg-325 mg tablet 1 tab PO Q6HPRN PRN severe pains #12 tabs 07/13/25
Home Medication Changes
oxycodone 15 mg tablet 15 mg PO Q4HPRN PRN severe pain #18 tabs 04/26/25
potassium chloride 10 mEq tablet,extended release 10 meq PO DAILY Supplement 06/29/25
DAPTOmycin [Cubicin] 1,000 mg As Directed mls/hr IV Q24H 07/13/25
oxycodone-acetaminophen 10 mg-325 mg tablet 1 tab PO Q6HPRN PRN severe pains #12 tabs 07/13/25
Pending Results: No
== END 2025-07-13 11:52 | disposition home health service (06) | DRG 493 ==
LOC: 4 WEST ACU 20:45
PROVIDERS: General Practice; Internal Medicine; Internal Medicine Infectious Disease; Radiology Neuroradiology; Student in an Organized Health Care Education/Training Program; ADMITTING PHYSICIAN Hospitalist; ATTENDING PHYSICIAN Internal Medicine; EMERGENCY PHYSICIAN Emergency Medicine; FAMILY PHYSICIAN Internal Medicine; OTHER PHYSICIAN Internal Medicine Infectious Disease; OTHER PHYSICIAN Student in an Organized Health Care Education/Training Program
PROC: 0SBG0ZZ Excision of Left Ankle Joint, Open Approach (ICD-10-PCS; 2025-07-01)
PROC: 30233N1 Transfusion of Nonautologous Red Blood Cells into Peripheral Vein, Percutaneous Approach (ICD-10-PCS; 2025-07-02)
PROC: 02HV33Z Insertion of Infusion Device into Superior Vena Cava, Percutaneous Approach (ICD-10-PCS; 2025-07-06)
PROC: 0QHM05Z Insertion of External Fixation Device into Left Tarsal, Open Approach (ICD-10-PCS; 2025-07-11)
PROC: 0SPG0JZ Removal of Synthetic Substitute from Left Ankle Joint, Open Approach (ICD-10-PCS; 2025-07-11)
DX: T84.59XA Infection and inflammatory reaction due to other internal joint prosthesis, initial encounter (principal); D62 Acute posthemorrhagic anemia; I48.19 Other persistent atrial fibrillation; R78.81 Bacteremia; L02.416 Cutaneous abscess of left lower limb; M00.072 Staphylococcal arthritis, left ankle and foot; M86.8X7 Other osteomyelitis, ankle and foot; I50.32 Chronic diastolic (congestive) heart failure; E11.610 Type 2 diabetes mellitus with diabetic neuropathic arthropathy; E11.40 Type 2 diabetes mellitus with diabetic neuropathy, unspecified; I11.0 Hypertensive heart disease with heart failure; D50.9 Iron deficiency anemia, unspecified; E66.09 Other obesity due to excess calories; B95.62 Methicillin resistant Staphylococcus aureus infection as the cause of diseases classified elsewhere; T84.84XA Pain due to internal orthopedic prosthetic devices, implants and grafts, initial encounter; G47.33 Obstructive sleep apnea (adult) (pediatric); N40.0 Benign prostatic hyperplasia without lower urinary tract symptoms; E11.69 Type 2 diabetes mellitus with other specified complication; Y83.1 Surgical operation with implant of artificial internal device as the cause of abnormal reaction of the patient, or of later complication, without mention of misadventure at the time of the procedure; Y92.9 Unspecified place or not applicable; Y79.2 Prosthetic and other implants, materials and accessory orthopedic devices associated with adverse incidents; Z86.718 Personal history of other venous thrombosis and embolism; Z88.1 Allergy status to other antibiotic agents; Z88.5 Allergy status to narcotic agent; Z68.30 Body mass index [BMI] 30.0-30.9, adult; Z79.01 Long term (current) use of anticoagulants; Z87.891 Personal history of nicotine dependence; Z89.422 Acquired absence of other left toe(s); Z79.85 Long-term (current) use of injectable non-insulin antidiabetic drugs; Z79.4 Long term (current) use of insulin; Z86.14 Personal history of Methicillin resistant Staphylococcus aureus infection
CPT/HCPCS: 70030; 71045; 73600; 73610; 73630; 73721; 76000; 80048; 80053; 80202; 82550; 82962; 83036; 83540; 83550; 83605; 85014; 85018; 85025; 85027; 86803; 86850; 86900; 86901; 86920; 87040; 87070; 87075; 87147; 87150; 87186; 87205; 88304; 88311; 93306; 93971; 96374; 96375; 97163; 97164; 97167; 97530; 97535; 97542; 99285; J0878; J2916; P9016

== ENCOUNTER 2025-08-04 18:06 | Inpatient (IN) | payer MEDICARE, OTHER, SELFPAY ==
[2025-08-04] VITALS (8 sets, daily range): BP systolic 129–144; BP diastolic 66–81; BMI 31.2; BMI 32.7; BMI 32.4
[2025-08-04] MEDS: DILAUDID 1 MG IV ×3 (13:22→15:45)
[2025-08-04 13:32] LABS: Hematocrit 31.1 % (39.0-52.0); Hemoglobin 9.8 g/dL (13.0-18.0); Mean Corp Hgb Conc. 31.5 g/dL (33.0-37.0); Mean Corpuscular Volume 83.2 fL (80.0-94.0); Nucleated Red Blood Cells % 0 % (-); Platelet Count 286 10^3/uL (130-400); Red Cell Dist. Width 22.0 % (11.5-14.5)
--- NOTE | 2025-08-04 13:42 | ED.GENMED ---
History of Present Illness
<Tom Ang PA-C - Last Filed: 08/05/25 15:12>
General
Chief Complaint: Swelling
Time Seen by Provider: 08/04/25 12:44
History of Present Illness
History of Present Illness:
70-year-old male with history of diabetes presents to the emergency department for evaluation of left calf and foot/ankle pain developing abruptly last night. He is between 3 to 4 weeks status post left ankle arthrotomy and bone biopsy of the tibia
and talus and application of external fixator due to Charcot arthropathy and MRSA septic arthritis performed at this hospital by Dr. Deluna. He states his postoperative course has been uneventful until last night when his pain dramatically
worsened. He reports exquisite pain to the left calf and foot. No fevers but does have chills that began last night. No coughing or shortness of breath. He is anticoagulated on Eliquis. Currently on IV daptomycin via PICC line
Review of Systems
<Tom Ang PA-C - Last Filed: 08/05/25 15:12>
Review of Systems
Allergies reviewed?: Yes
All Other Systems: ROS reviewed and negative except as documented in HPI and ROS
Phy Exam
<Tom Ang PA-C - Last Filed: 08/05/25 15:12>
Physical Exam
Physical Exam:
GEN: Well appearing, NAD, WDWN
HEENT: Oral mucosa moist, no scleral icterus
Cardiac: Regular rate
Lung: No respiratory distress, no tachypnea
MSK: See images below of the left lower extremity. Diffusely swollen LLE with severe tenderness to calf, no overt erythema, no compartmental firmness, unable to assess pain w/ passive stretch
Skin: Good color, no pallor or jaundice, no rashes
Neuro: AO x3, moves all extremities freely
Psych: Calm, cooperative
Scores
<Tom Ang PA-C - Last Filed: 08/05/25 15:12>
Heart Failure Risk
Heart Failure Risk Score: Not Applicable
Course
<Tom Agn PA-C - Last Filed: 08/05/25 15:12>
Orders/Labs/Results
Orders:
Orders
08/04/25 13:02
HYDROmorphone [Dilaudid] 1 mg IV NOW STA
08/04/25 13:03
CR Chest Portable - 1 View Urgent
Comment:
Reason For Exam: PICC line
Reason Study Needs to be Portable: Other
08/04/25 13:18
Blood Culture Q30M
EDWIGE Source: Blood/Venous
Specimen Description:
08/04/25 13:19
CRP [C-Reactive Protein] Urgent
Complete Blood Count/With Diff Urgent
Comprehensive Metabolic Panel Urgent
Creatine Phosphokinase Urgent
Comment: ADD ON
Lactic Acid Q4H
Comment: CANCEL 2nd LACTIC ACID IF 1st LACTIC ACID IS LESS THAN 2
08/04/25 13:33
HYDROmorphone [Dilaudid] 1 mg IV NOW STA
08/04/25 13:37
Blood Culture Q30M
EDWIGE Source: Blood/Venous
Specimen Description:
08/04/25 13:41
CT Lower Ext W/iv Cont Lt Urgent
Comment: mid tibia through foot
Reason For Exam: L leg/foot pain
CR Ankle - Left Min 3 Views Urgent
Comment:
Reason For Exam: pain
CR Foot - Left Min 3 Views Urgent
Comment:
Reason For Exam: pain
08/04/25 Dinner
2200 calorie (18 carb) Diabetic
At Your Request: Non-Participating
08/04/25 15:16
HYDROmorphone [Dilaudid] 1 mg IV NOW STA
08/04/25 17:49
Admit/Transfer Patient As Directed
Co-Sign Provider:
Level of Care: Inpatient admission
Assign to:: Medical/Surgical
Physician / Group: [facility]
Diagnosis: Acute left leg pain r/o infection and hardware related complications
Reason for Hospitalization: see progress note
Expected length of stay greater than two midnights?: Yes
ELOS- Estimated Length of Stay in days: 2
I certify the patient meets the requirements for IP care: Yes
08/04/25 17:50
PRN Pain Medication Management As Directed
May give lesser potent ordered pain med per pt: Yes
preference::
Protocol:: Medication orders for pain may be administered in a
manner that supports deferring to patient preference
when the pt is:
- Requesting an ordered lesser potent pain medication.
Least to most potent pain medications are defined
as: acetaminophen < NSAID < tramadol < opioids
(morphine, oxycodone, hydromorphone).
- Requesting a lesser dose of the same medication IF
ORDERED.
- Requesting a less intrusive route of administration
if both routes are prescribed by the provider (PO <
IV).
08/04/25 17:51
Code Status As Directed
Resuscitation Status: Full Code
08/04/25 20:56
Acetaminophen [Tylenol] 650 mg PO Q4HPRN PRN
Apixaban [Eliquis] 5 mg PO BID
Dextrose 50%-Water [Dextrose 50% Syringe] 12.5 grams IV [id number] PRN
Glucagon [GlucaGen] 1 mg IM PRN PRN
HYDROmorphone [Dilaudid] 0.5 mg IV Q3HPRN PRN
08/04/25 20:56
Add On- LAB Routine
Tests Added?: cpk
Consult Podiatry [PODIATRY CONSULT] Routine
Consulting Provider: Santiago Bolanos
Was physician already notified: Yes
Reason for consult: Left leg pain
Activity As Directed
Activity Level: As Tolerated
With Assistance
Comment: non weight bearing on left foot
Bedside Glucose Monitoring As Directed
Frequency: AC&HS
Additional Instructions:: Change to q6h if pt on TPN, tube feeding or not eating
I&O [Intake/ Output] As Directed
Frequency: q12h
US Legs, Left [US Periph Venous LOWER Ext LT] Urgent
Comment:
Reason For Exam: swelling
08/04/25 22:00
Valacyclovir HCl [Valtrex] 500 mg PO HS
Venlafaxine Extended Release [Effexor Xr] 75 mg PO HS
08/05/25 04:08
Basic Metabolic Panel IN AM
CBC/No Diff [Complete Blood Count/No Diff] IN AM
Glycohemoglobin (HgbA1c) IN AM
08/05/25 07:30
Insulin Aspart Corrective Low [Novolog Flexpen-Low Resistance] See Protocol SC AC
08/05/25 08:00
Amiodarone [Pacerone] 200 mg PO DAILY
Ferrous Sulfate [Feosol] 325 mg PO DAILY
Furosemide [Lasix] 20 mg PO DAILY
Insulin Aspart/Asp Protamine [Novolog Mix 70/30 Flexpen] 40 units SC DAILY
Metoprolol Xl [Toprol Xl] 25 mg PO DAILY
Potassium Chloride [KCl] 10 meq PO DAILY
08/05/25 17:02
NM Bone Scan, Three Phase Routine
Reason For Exam: evaluate of OM Left ankle
08/05/25 22:00
Insulin Aspart/Asp Protamine [Novolog Mix 70/30 Flexpen] 20 units SC HS
Abnormal Lab Results
08/04/25
13:19
WBC 11.5 H 10^3/uL
(4.8-10.8)
RBC 3.74 L 10^6/uL
(4.70-6.10)
Hgb 9.8 L g/dL
(13.0-18.0)
Hct 31.1 L %
(39.0-52.0)
MCH 26.2 L pg
(27.0-31.0)
MCHC 31.5 L g/dL
(33.0-37.0)
RDW 22.0 H %
(11.5-14.5)
Absolute Neuts (auto) 9.8 H 10^3/uL
(1.4-6.5)
Absolute Lymphs (auto) 1.0 L 10^3/uL
(1.2-3.4)
Neutrophils % 84.9 H %
(42.2-75.2)
Lymphocytes % 8.9 L %
(20.5-51.1)
Glucose 107 H mg/dl
(70-99)
Alkaline Phosphatase 127 H U/L
(38-126)
08/04/25 13:19
08/04/25 13:19
Vital Signs
Initial and Last Documented VS:
Initial Vital Signs
Temp Pulse Resp BP Pulse Ox
97.7 F 74 14 132/75 94
08/04/25 12:27 08/04/25 12:27 08/04/25 12:27 08/04/25 12:27 08/04/25 12:27
Last Documented Vital Signs
Temp Pulse Resp BP Pulse Ox
98.1 F 74 20 138/69 96
08/05/25 07:00 08/05/25 08:03 08/05/25 07:00 08/05/25 08:03 08/05/25 07:00
[place];Keenan Maria, DO - Last Filed: 08/05/25 12:38>
Orders/Labs/Results
Orders:
Orders
08/04/25 13:02
HYDROmorphone [Dilaudid] 1 mg IV NOW STA
08/04/25 13:03
CR Chest Portable - 1 View Urgent
Comment:
Reason For Exam: PICC line
Reason Study Needs to be Portable: Other
08/04/25 13:18
Blood Culture Q30M
EDWIGE Source: Blood/Venous
Specimen Description:
08/04/25 13:19
CRP [C-Reactive Protein] Urgent
Complete Blood Count/With Diff Urgent
Comprehensive Metabolic Panel Urgent
Creatine Phosphokinase Urgent
Comment: ADD ON
Lactic Acid Q4H
Comment: CANCEL 2nd LACTIC ACID IF 1st LACTIC ACID IS LESS THAN 2
08/04/25 13:33
HYDROmorphone [Dilaudid] 1 mg IV NOW STA
08/04/25 13:37
Blood Culture Q30M
EDWIGE Source: Blood/Venous
Specimen Description:
08/04/25 13:41
CT Lower Ext W/iv Cont Lt Urgent
Comment: mid tibia through foot
Reason For Exam: L leg/foot pain
CR Ankle - Left Min 3 Views Urgent
Comment:
Reason For Exam: pain
CR Foot - Left Min 3 Views Urgent
Comment:
Reason For Exam: pain
08/04/25 Dinner
2200 calorie (18 carb) Diabetic
At Your Request: Non-Participating
08/04/25 15:16
HYDROmorphone [Dilaudid] 1 mg IV NOW STA
08/04/25 17:49
Admit/Transfer Patient As Directed
Co-Sign Provider:
Level of Care: Inpatient admission
Assign to:: Medical/Surgical
Physician / Group: [facility]
Diagnosis: Acute left leg pain r/o infection and hardware related complications
Reason for Hospitalization: see progress note
Expected length of stay greater than two midnights?: Yes
ELOS- Estimated Length of Stay in days: 2
I certify the patient meets the requirements for IP care: Yes
08/04/25 17:50
PRN Pain Medication Management As Directed
May give lesser potent ordered pain med per pt: Yes
preference::
Protocol:: Medication orders for pain may be administered in a
manner that supports deferring to patient preference
when the pt is:
- Requesting an ordered lesser potent pain medication.
Least to most potent pain medications are defined
as: acetaminophen < NSAID < tramadol < opioids
(morphine, oxycodone, hydromorphone).
- Requesting a lesser dose of the same medication IF
ORDERED.
- Requesting a less intrusive route of administration
if both routes are prescribed by the provider (PO <
IV).
08/04/25 17:51
Code Status As Directed
Resuscitation Status: Full Code
08/04/25 20:56
Acetaminophen [Tylenol] 650 mg PO Q4HPRN PRN
Apixaban [Eliquis] 5 mg PO BID
Dextrose 50%-Water [Dextrose 50% Syringe] 12.5 grams IV [id number] PRN
Glucagon [GlucaGen] 1 mg IM PRN PRN
HYDROmorphone [Dilaudid] 0.5 mg IV Q3HPRN PRN
08/04/25 20:56
Add On- LAB Routine
Tests Added?: cpk
Consult Podiatry [PODIATRY CONSULT] Routine
Consulting Provider: Santiago Bolanos
Was physician already notified: Yes
Reason for consult: Left leg pain
Activity As Directed
Activity Level: As Tolerated
With Assistance
Comment: non weight bearing on left foot
Bedside Glucose Monitoring As Directed
Frequency: AC&HS
Additional Instructions:: Change to q6h if pt on TPN, tube feeding or not eating
I&O [Intake/ Output] As Directed
Frequency: q12h
US Legs, Left [US Periph Venous LOWER Ext LT] Urgent
Comment:
Reason For Exam: swelling
08/04/25 22:00
Valacyclovir HCl [Valtrex] 500 mg PO HS
Venlafaxine Extended Release [Effexor Xr] 75 mg PO HS
08/05/25 04:08
Basic Metabolic Panel IN AM
CBC/No Diff [Complete Blood Count/No Diff] IN AM
Glycohemoglobin (HgbA1c) IN AM
08/05/25 07:30
Insulin Aspart Corrective Low [Novolog Flexpen-Low Resistance] See Protocol SC AC
08/05/25 08:00
Amiodarone [Pacerone] 200 mg PO DAILY
Ferrous Sulfate [Feosol] 325 mg PO DAILY
Furosemide [Lasix] 20 mg PO DAILY
Insulin Aspart/Asp Protamine [Novolog Mix 70/30 Flexpen] 40 units SC DAILY
Metoprolol Xl [Toprol Xl] 25 mg PO DAILY
Potassium Chloride [KCl] 10 meq PO DAILY
08/05/25 17:02
NM Bone Scan, Three Phase Routine
Reason For Exam: evaluate of OM Left ankle
08/05/25 22:00
Insulin Aspart/Asp Protamine [Novolog Mix 70/30 Flexpen] 20 units SC HS
Abnormal Lab Results
08/04/25
13:19
WBC 11.5 H 10^3/uL
(4.8-10.8)
RBC 3.74 L 10^6/uL
(4.70-6.10)
Hgb 9.8 L g/dL
(13.0-18.0)
Hct 31.1 L %
(39.0-52.0)
MCH 26.2 L pg
(27.0-31.0)
MCHC 31.5 L g/dL
(33.0-37.0)
RDW 22.0 H %
(11.5-14.5)
Absolute Neuts (auto) 9.8 H 10^3/uL
(1.4-6.5)
Absolute Lymphs (auto) 1.0 L 10^3/uL
(1.2-3.4)
Neutrophils % 84.9 H %
(42.2-75.2)
Lymphocytes % 8.9 L %
(20.5-51.1)
Glucose 107 H mg/dl
(70-99)
Alkaline Phosphatase 127 H U/L
(38-126)
08/04/25 13:19
08/04/25 13:19
Vital Signs
Initial and Last Documented VS:
Initial Vital Signs
Temp Pulse Resp BP Pulse Ox
97.7 F 74 14 132/75 94
08/04/25 12:27 08/04/25 12:27 08/04/25 12:27 08/04/25 12:27 08/04/25 12:27
Last Documented Vital Signs
Temp Pulse Resp BP Pulse Ox
98.1 F 74 20 138/69 96
08/05/25 07:00 08/05/25 08:03 08/05/25 07:00 08/05/25 08:03 08/05/25 07:00
<Tom Ang PA-C - Last Filed: 08/05/25 15:12>
*Pulse Oximetry
SaO2: 99
Oxygen Mode of Delivery: Room air
Patient hypoxic: no
*Critical Care Note
Total Time (30-74mins, 75-104mins- exclusive of procedures): Not Applicable
ED Attending Note
<Tom Ang PA-C - Last Filed: 08/05/25 15:12>
-
Portions of this chart may have been created with voice recognition software.� Occasional wrong word or��sound alike� substitutions may have occurred due to the inherent limitations of voice recognition software.
<Keenan Maria, DO - Last Filed: 08/05/25 12:38>
ED Attending Note
Patient seen and examined by attending physician: Yes
I performed the substantive portion of visit, reviewed & personally made and approve the management plan that is documented in note by myself or ROBBIN.: Yes
ED Attending Note:
I discussed case with Dr. Deluna. Dr. Deluna recommends patient stay in the hospital, CT imaging obtained. Dr. Deluna also is considering MRI and/or bone scan with possible OR. White count minimally elevated 11.5, CRP normal.
Discharge Plan
Departure
Patient Disposition: Admit
Date of Disposition: 08/04/25
Time of Disposition: 16:53
Presentation/result/management discussed w/ accepting MD/DO: Hospitalist
Discharge Problem:
Acute left ankle pain
Interventions
Interventions:
*Risk Screen - Suicide Last Done: 08/04/25 12:27
*General Assessment Last Done: 08/04/25 12:27
*Neglect/Abuse Screening Last Done: 08/04/25 12:27
*ED- Fall Risk Assessment Last Done: 08/04/25 13:22
*ED COVID-19 Vaccine History Last Done: 08/04/25 12:27
*ED Influenza Vaccine History Last Done: 08/04/25 12:27
*Nursing Disposition Last Done: 08/04/25 20:56
ED- Cardiac Assessment Last Done: 08/04/25 13:22
ED- Pulmonary Assessment Last Done: 08/04/25 13:22
ED-Skin Assessment Last Done: 08/04/25 13:22
Discharge Date and Time
Discharge Date/Time: 08/04/25 20:56
[2025-08-04 14:12] LABS: ALT (SGPT) 18 U/L (0-50); AST (SGOT) 25 U/L (17-59); Albumin 4.1 g/dl (3.5-5.0); Alkaline Phosphatase 127 U/L (38-126); Blood Urea Nitrogen 15 mg/dl (9-20); Calcium 8.9 mg/dl (8.4-10.2); Carbon Dioxide 26 mmol/L (22-30); Chloride 107 mmol/L (98-107); Estimated Creatinine Clearance 106 ml/min; Glucose 107 mg/dl (70-99); Potassium 4.2 mmol/L (3.5-5.1); Sodium 139 mmol/L (135-145); Total Protein 8.2 g/dl (6.3-8.2); eGFR > 60.00
[2025-08-04 14:16] LABS: C-Reactive Protein < 5.00 mg/L (0.0-10.00)
--- NOTE | 2025-08-04 17:13 | W.PN.UPDATE ---
Update Note
Progress Note Update
70 M presents with L ankle pain s/p left ankle Removal of Hardware with application of multiplanar external fixater (DOS 07/11/25). Currently on abx Picc. No pin tract infections.
- ordered MRI and bone scan LLE
-- pending results tentative plan for OR early next week
- r/o DVT
- continue abx per ID
- continue NWB LLE
- will reassess on AM rounds
--- NOTE | 2025-08-04 17:59 | HPS.HSE ---
Family Physician
-
Family Physician: Stephanie Car
Chief Complaint
-
Left leg pain
History of Present Illness
Patient with diabetes on left Charcot referred had reconstructive surgery in April and was here in July because of infected hardware for which the hardware was removed and he was placed on multiplanar external fixator. He was noted then to have
MRSA bacteremia and currently on IV daptomycin. He was doing okay at the rehab but Friday into developed sudden pain in the left leg. It is all the way from the foot to the knee. It is everywhere in the leg. His leg remains swollen
but is much better than what it was before the hardware removal. He did not see any discharge from his pins of the external fixator. No fever no chills. No trauma.
He says otherwise he was doing okay. Denies any chest pain, shortness of breath.
No nausea or vomiting.
Seen in the ED had an x-rays and the lower extremity CT which did not show any evidence of acute fractures or dislocations. There is soft tissue swelling. Seen by customer program specialist who wants him to be admitted for MRI of the leg, bone scan.
Medical History
Past Medical History
Past Medical History: Reports Other
Additional Past Medical History:
Chronic Persistent Atrial Fibrillation
DM-II
Hypertension
Obesity
MELAB
BPH
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
Charcot Foot
Past Surgical History: Reports Other
Additional Past Surgical History:
Left Foot Double Arthrodesis and Achilles Lengthening (04/21/25)
A-Fib Ablation
Hernia Repair
TKA
Rotator Cuff Surgery
Appendectomy
Social History
Tobacco: Former Smoker (Remote history of smoking.)
Alcohol: Occasional
Drug: None
Family History
Family History: Not pertinent
Allergies / Home Medications
Allergies reflects when Allergies were last updated in [facility].
Home Medications with original date entered in [facility]
Allergy/Medication List:
Allergies
Allergy/AdvReac Type Severity Reaction Status Date / Time
erythromycin base Allergy Nausea / Verified 06/29/25 15:08
Vomiting
morphine Allergy Pharmacy Verified 06/29/25 15:08
to Review
Home Medications
amiodarone 200 mg tablet 200 mg PO DAILY 04/14/25
apixaban 5 mg tablet (Eliquis) 5 mg PO BID 04/14/25
atorvastatin 10 mg tablet 10 mg PO QPM 04/14/25
furosemide 20 mg tablet 20 mg PO DAILY 04/14/25
insulin NPH-regular 70-30 U-100 insulin 100 unit/mL subcutaneous pen (Novolin 70-30 FlexPen U-100 Insulin) 20 unit SC HS 04/14/25
insulin NPH-regular 70-30 U-100 insulin 100 unit/mL subcutaneous pen (Novolin 70-30 FlexPen U-100 Insulin) 40 unit SC DAILY 04/14/25
metoprolol succinate 25 mg tablet,extended release 24 hr 25 mg PO DAILY 04/14/25
tirzepatide 7.5 mg/0.5 mL subcutaneous pen injector (Mounjaro) 7.5 mg SC ESPINAL 04/14/25
valacyclovir 500 mg tablet 500 mg PO HS 04/14/25
venlafaxine 75 mg capsule,extended release 24 hr (Effexor XR) 75 mg PO HS 04/14/25
oxycodone 15 mg tablet 15 mg PO Q4HPRN PRN severe pain #18 tabs 04/26/25
oxycodone-acetaminophen 10 mg-325 mg tablet 1 tab PO Q6HPRN PRN severe pains 06/29/25
potassium chloride 10 mEq tablet,extended release 10 meq PO DAILY 06/29/25
Review of Systems
-
A 12 point ROS was completed and negative except as noted: Yes
Physical Exam
Vital Signs
Vital Signs
Temp Pulse Resp BP Pulse Ox
98.5 F 67 14 136/73 96
08/04/25 13:22 08/04/25 14:52 08/04/25 14:52 08/04/25 14:52 08/04/25 14:52
Physical Exam
General: Comfortable
Respiratory: Clear and Non Labored Respirations; No Accessory Resp Muscle Use
Cardiac: S1/S2 and Regular Rhythm; No Tachycardia
GI: Soft and Non Tender
Musculoskeletal: Edema, Left Lower Extremity and Other (Left leg in external fixator. All the pin sites are clean without any discharge or bleeding. Leg is swollen with 2+ edema. No significant erythema.)
Neuro: AO x 3
Psych: Calm
Laboratory Results
-
08/04/25 13:19
08/04/25 13:19
Laboratory Results
Lactic Acid Cancelled 08/04/25 17:15
Total Bilirubin 0.5 mg/dl (0.2-1.3) 08/04/25 13:19
AST 25 U/L (17-59) 08/04/25 13:19
ALT 18 U/L (0-50) 08/04/25 13:19
Alkaline Phosphatase 127 U/L (38-126) H 08/04/25 13:19
Data Reviewed
-
Diagnostic Radiology: Report Reviewed by me (X-rays of foot and ankle)
CT Scan: Report Reviewed by me (CT lower extremity)
Lab Data: Labs Reviewed by me
Impression/Plan
-
Acute left leg pain with an external fixator in situ -patient recently had infected hardware of his left ankle which was removed and he also had MRSA bacteremia and septic arthritis. He was placed on external fixator but now coming in with acute
left leg pain. So for imaging with an x-ray and lower extremity CT shows no acute fracture or dislocation but the left leg is swollen with soft tissue edema.
Admit to hospital for further evaluation and to rule out cellulitis of the leg and as well as any septic arthritis.
Obtain an MRI of the left foot and bone scan per podiatry.
Continue with his IV daptomycin as planned before for MRSA bacteremia
Continue with oxycodone and Dilaudid for pain management.
Also obtain an ultrasound of the left leg because of significant swelling and calf pain to rule out any DVT.
Atrial fibrillation-seems paroxysmal. Sinus rhythm on the monitor in the ER. Continue with amiodarone and Eliquis.
Diabetes mellitus type 2-on insulin 70/30 40 units in the morning and 20 units in the evening. Resume his home regimen. Added sliding scale insulin and follow Accu-Cheks for any hypoglycemias and glycemic control.
Full code.
Portions of this chart may have been created with voice recognition software. Occasional wrong word or 'sound alike' substitutions may have occurred due to the inherent limitations of voice recognition software.
[2025-08-04] MEDS: DILAUDID 0.5 MG IV ×2 (21:12→23:19)
[2025-08-04] MEDS: ELIQUIS 5 MG PO (21:12)
[2025-08-04 21:24] LABS: Glucose - Point of Care 98 mg/dl (70-99)
--- NOTE | 2025-08-04 21:57 | PTCARENOTE ---
Patient arrived to [address] [place] [address] from ED transport. Patient used his strength to pull himself over from stretcher to bed. Patient in 08/12 pain uncontrolled by 0.5 mg Dilaudid. Messaged [employer] EXPORT MANAGER. Patient has external fixator in place with no drainage noted at
this time.
[2025-08-04] MEDS: VALTREX 500 MG PO (22:12)
[2025-08-04] MEDS: EFFEXOR XR 75 MG PO (22:12)
[2025-08-05] MEDS: ROXICODONE 10 MG PO (00:33)
[2025-08-05] MEDS: DILAUDID 0.5 MG IV ×3 (01:45→08:03)
[2025-08-05] MEDS: DILAUDID 0.25 MG IV ×2 (03:43→09:29)
[2025-08-05 05:03] VITALS: BMI 32.4
[2025-08-05 05:44] LABS: Hematocrit 28.0 % (39.0-52.0); Hemoglobin 8.9 g/dL (13.0-18.0); Mean Corp Hgb Conc. 31.8 g/dL (33.0-37.0); Mean Corpuscular Volume 83.3 fL (80.0-94.0); Platelet Count 255 10^3/uL (130-400); Red Cell Dist. Width 22.0 % (11.5-14.5)
[2025-08-05 05:49] LABS: Blood Urea Nitrogen 13 mg/dl (9-20); Calcium 8.7 mg/dl (8.4-10.2); Carbon Dioxide 25 mmol/L (22-30); Chloride 107 mmol/L (98-107); Estimated Creatinine Clearance 96 ml/min; Glucose 85 mg/dl (70-99); Potassium 4.2 mmol/L (3.5-5.1); Sodium 137 mmol/L (135-145); eGFR > 60.00
[2025-08-05 07:00] VITALS: BP 138/69
[2025-08-05 07:45] LABS: Glucose - Point of Care 104 mg/dl (70-99)
[2025-08-05] MEDS: PACERONE 200 MG PO (08:01)
[2025-08-05] MEDS: LASIX 20 MG PO (08:03)
[2025-08-05] MEDS: ELIQUIS 5 MG PO ×2 (08:03→20:02)
[2025-08-05] MEDS: CUBICIN 20 MG IV (08:03)
[2025-08-05] MEDS: KCL 10 MEQ PO (08:03)
[2025-08-05] MEDS: FEOSOL 325 MG PO (08:03)
[2025-08-05] MEDS: TOPROL XL 25 MG PO (08:03)
[2025-08-05] MEDS: NOVOLOG MIX 70/30 FLEXPEN 40 UNITS SC (08:04)
[2025-08-05 09:21] LABS: Hepatitis C Antibody Negative (Negative)
[2025-08-05 10:04] VITALS: BMI 32.4
[2025-08-05 10:37] LABS: Glycohemoglobin (HgbA1c) 4.6 % (4.0-5.6)
[2025-08-05] MEDS: DILAUDID 1 MG IV ×4 (11:03→20:45)
[2025-08-05 11:11] LABS: Glucose - Point of Care 56 mg/dl (70-99)
[2025-08-05 11:36] LABS: Glucose - Point of Care 56 mg/dl (70-99)
--- NOTE | 2025-08-05 11:58 | WOUNDNOTE ---
L ANTERIOR LOWER LEG
--- NOTE | 2025-08-05 11:59 | WOUNDNOTE ---
R HEEL AND ACHILLES
[2025-08-05 12:00] LABS: Glucose - Point of Care 82 mg/dl (70-99)
--- NOTE | 2025-08-05 12:00 | WOUNDNOTE ---
PHAN RN NOTE: Asked by nurse Mckeon for direction on wound care for L leg external fixator. See chart for PMH. Surgery done on L foot for Charcot foot by Dr. Deluna 3-4 wks ago. Podiatry on consult and following. Pins all in place on L leg and
foot, reviewed pin care with patient that Ga ACOSTA has been doing. Confirmed with Dr. Bolanos plan of care. Updated nurse Mckeon and will put in orders for nursing to change daily. Will sign off unless needed.
--- NOTE | 2025-08-05 12:01 | W.PN.HOSP.TC ---
Today's Communication/Plan
-
Continue the current treatments
Await bone scan
Assessment / Plan
Assessment / Plan
Acute left leg pain with an external fixator in situ -patient recently had infected hardware of his left ankle which was removed and he also had MRSA bacteremia and septic arthritis. He was placed on external fixator but now coming in with acute
left leg pain. So for imaging with an x-ray and lower extremity CT shows no acute fracture or dislocation but the left leg is swollen with soft tissue edema.
White count is normal including CRP. CPK is normal. Unclear cause of fever. Bone scan pending.MRI of the left foot not possible as hardware is not compatible.
Continue with his IV daptomycin as planned before for MRSA bacteremia
Continue with oxycodone and Dilaudid for pain management.
ultrasound of the left leg is negative for DVT
Atrial fibrillation-seems paroxysmal. Sinus rhythm . Continue with amiodarone and Eliquis.
Diabetes mellitus type 2-on insulin 70/30 40 units in the morning and 20 units in the evening. Resume his home regimen. Added sliding scale insulin and follow Accu-low sugars Premeal lunch noted-persistent decrease the morning dose.
Full code.
Portions of this chart may have been created with voice recognition software. Occasional wrong word or 'sound alike' substitutions may have occurred due to the inherent limitations of voice recognition software.
Anticipated Discharge: > 48 hours
Subjective/Interval History
-
Date of Service: August 05, 2025
Continued left leg pain. No change from yesterday. No fever or chills.
Objective Data
-
Labs:
Laboratory Results
08/05/25
04:08
WBC 8.3
Hgb 8.9 L
Hct 28.0 L
Plt Count 255
Sodium 137
Potassium 4.2
Chloride 107
Carbon Dioxide 25
BUN 13
Creatinine 0.9
Glucose 85
Calcium 8.7
Vital Signs:
Vital Signs
Temp Pulse Resp BP Pulse Ox
98.1 F 74 20 138/69 96
08/05/25 07:00 08/05/25 08:03 08/05/25 07:00 08/05/25 08:03 08/05/25 07:00
I&O
08/04/25 08/05/25 08/06/25
06:59 06:59 06:59
Intake Total 480 / 480 480 / 480
Output Total 550 / 550 200 / 200
Balance -70 / -70 280 / 280
Physical Exam
-
General: Comfortable
Respiratory: Non Labored Respirations; Negative Accessory Resp Muscle Use
Cardiac: Regular Rhythm and S1/S2; Negative Tachycardic
Musculoskeletal: Edema, Left Lower Extrem (Same as yesterday. External fixator in place. Pins incision sites are clean)
Neuro: AO x 3
Psych: Calm; Negative Confused
Data Reviewed
-
Labs: Labs Reviewed by me
--- NOTE | 2025-08-05 12:14 | CM ---
CM following re: discharge planning.
Reviewed pt's chart, met with pt.
Pt is a 70 year old male, admitted with primary dx of Acute left leg pain with an external fixator in situ. PMH: Chronic Persistent Atrial Fibrillation
DM-II, Hypertension, Obesity, MELBA, BPH, History of UE DVT, Charcot Foot.
Pt reports she lives with spouse 2SH, 10 steps to enter, stays on 1st floor, gas 2 supportive sons. Pt reports he has a walker, cane, wheelchair, current with [facility] and [facility]. [facility] at [facility] in summer.
Pt made a strong request he will not go to any SNF and he made it very clear he will return back home with resumptions of [facility] and [facility].
PCP: Stephanie Car
Pharmacy: [facility].
D/C plan; home with resumptions of [facility] if indicated, [facility] and family support.
CM will follow with discharge plan updates as hospitalization progresses
[2025-08-05] MEDS: VALIUM INJECTION 2.5 MG IV (13:08)
[2025-08-05 14:23] LABS: Glucose - Point of Care 82 mg/dl (70-99)
[2025-08-05 15:00] VITALS: BP 117/65
--- NOTE | 2025-08-05 16:05 | PN.CDI ---
CDI
- -
CDI:
Physician Documentation Request
Admit Date: 08/04/25 18:06
Dear Doctor Hudson,
H&P: 'Chronic Persistent Atrial Fibrillation...apixaban 5 mg tablet (Eliquis) 5 mg PO BID 04/14/25'
08/05 Hospitalist PN: 'Atrial fibrillation-seems paroxysmal. Sinus rhythm . Continue with amiodarone and Eliquis.'
If possible, please provide further specificity regarding atrial fibrillation, such as:
Persistent atrial fibrillation - episodes of continuous AF that last more than 7 days and do not self-terminate
Paroxysmal atrial fibrillation - terminates spontaneously or with intervention within 7 days of onset
Chronic atrial fibrillation
Other - please specify
Use of terms such as suspected, likely, concern for, or probable (associated with a specific diagnosis that is being evaluated, monitored, or treated as if it exists) are acceptable and can be coded in the inpatient setting, when documented at the
time of discharge.
Thank you,
Danuta Cartagena RN, BSN
CDI Specialist
Available via [facility] text
Please use your independent medical judgment in providing your response.
[2025-08-05 16:41] LABS: Glucose - Point of Care 89 mg/dl (70-99)
--- NOTE | 2025-08-05 17:59 | PTCARENOTE ---
Patient NWB LLE with external fixator in place, able to slide transfer to stretcher and commode throughout shift, medicated with PRN 1mg IV Dilaudid throughout shift for LLE pain - see JAN. Patient hypoglycemic at 56 this afternoon after receiving
40 units 70/30 novolog insulin this AM, asymptomatic, given fruit juice with sugar improvement to 82, hypoglycemic protocol followed; 20 units 70/30 insulin scheduled @ , made aware, no new orders at this time. Wound care provided to LLE
external fixator pin sites per station baggage porter, Podiatry at bedside.
--- NOTE | 2025-08-05 18:46 | W.PN.UPDATE ---
Update Note
Progress Note Update
70 M presents with L ankle pain s/p left ankle Removal of Hardware with application of multiplanar external fixater (DOS 07/11/25). No pin tract infections.
- LLE NM scan to dictate surgical planning early next week
-- will follow NM scan
- continue abx per ID
- continue NWB LLE
- will continue to monitor
[2025-08-05 21:47] LABS: Glucose - Point of Care 87 mg/dl (70-99)
[2025-08-05] MEDS: EFFEXOR XR 75 MG PO (22:40)
[2025-08-05] MEDS: VALTREX 500 MG PO (22:40)
[2025-08-05 23:20] VITALS: BP 122/59
[2025-08-06] MEDS: DILAUDID 1 MG IV ×6 (00:13→22:46)
[2025-08-06] MEDS: DILAUDID 0.25 MG IV ×4 (01:24→16:10)
[2025-08-06 03:15] LABS: Glucose - Point of Care 90 mg/dl (70-99)
[2025-08-06 06:00] VITALS: BMI 32.4
[2025-08-06 06:10] LABS: Hematocrit 28.3 % (39.0-52.0); Hemoglobin 8.6 g/dL (13.0-18.0); Mean Corp Hgb Conc. 30.4 g/dL (33.0-37.0); Mean Corpuscular Volume 84.5 fL (80.0-94.0); Platelet Count 232 10^3/uL (130-400); Red Cell Dist. Width 22.0 % (11.5-14.5)
[2025-08-06 07:10] VITALS: BP 131/71
[2025-08-06] MEDS: ELIQUIS 5 MG PO ×2 (08:41→20:10)
[2025-08-06] MEDS: FEOSOL 325 MG PO (08:42)
[2025-08-06] MEDS: TOPROL XL 25 MG PO (08:42)
[2025-08-06] MEDS: CUBICIN 20 MG IV (08:42)
[2025-08-06] MEDS: LASIX 20 MG PO (08:43)
[2025-08-06] MEDS: KCL 10 MEQ PO (08:43)
[2025-08-06] MEDS: PACERONE 200 MG PO (08:43)
[2025-08-06] MEDS: NOVOLOG MIX 70/30 FLEXPEN SC (08:44)
[2025-08-06 10:06] VITALS: BP 125/69; PULSE 70; O2SAT 99
--- NOTE | 2025-08-06 12:27 | W.PN.HOSP.TC ---
Today's Communication/Plan
-
Continue IV daptomycin next await further from sociology research assistant
Hold 7030 scheduled insulin and follow on sliding scale for now
Assessment / Plan
Assessment / Plan
Acute left leg pain with an external fixator in situ -patient recently had infected hardware of his left ankle which was removed and he also had MRSA bacteremia and septic arthritis. He was placed on external fixator but now coming in with acute
left leg pain. So for imaging with an x-ray and lower extremity CT shows no acute fracture or dislocation but the left leg is swollen with soft tissue edema.
White count is normal including CRP. CPK is normal. Unclear cause of fever. MRI of the left foot not possible as hardware is not compatible.
Bone scan 08/05-Scintigraphic findings suspicious for osteomyelitis/septic joint involving the left tibiotalar joint. Probable adjacent extensive reactive osteitis and/or degenerative change.
Continue with his IV daptomycin as planned before for MRSA bacteremia
Continue with oxycodone and Dilaudid for pain management.
ultrasound of the left leg is negative for DVT
Atrial fibrillation-seems paroxysmal. Sinus rhythm . Continue with amiodarone and Eliquis.
Diabetes mellitus type 2-on insulin 70/30 40 units in the morning and 20 units in the evening. Patient with multiple episodes of blood sugars. His hemoglobin A1c is 4.6. Very tightly controlled June. Hold all regular insulin and just watch the
blood sugars on sliding scale insulin for the next 2448 hrs. and readjust his 7030 scheduled dose for the day.
Full code.
Portions of this chart may have been created with voice recognition software. Occasional wrong word or 'sound alike' substitutions may have occurred due to the inherent limitations of voice recognition software.
Anticipated Discharge: > 48 hours
Subjective/Interval History
-
Date of Service: August 06, 2025
Pain still persist in the left leg but no fever chills.
Patient having hypoglycemia episodes here in the hospital.
Oral intake is adequate. No nausea vomiting.
Objective Data
-
Labs:
Laboratory Results
08/06/25
05:50
WBC 7.3
Hgb 8.6 L
Hct 28.3 L
Plt Count 232
Vital Signs:
Vital Signs
Temp Pulse Resp BP Pulse Ox
97.7 F 67 16 131/71 97
08/06/25 07:10 08/06/25 07:10 08/06/25 07:10 08/06/25 07:10 08/06/25 07:10
I&O
08/05/25 08/06/25 08/07/25
06:59 06:59 06:59
Intake Total 480 / 480 1440 / 1440
Output Total 550 / 550 1650 / 1650
Balance -70 / -70 -210 / -210
Physical Exam
-
General: Comfortable
Respiratory: Non Labored Respirations; Negative Accessory Resp Muscle Use
Cardiac: Regular Rhythm and S1/S2; Negative Bradycardic
Neuro: AO x 3
Psych: Calm
Data Reviewed
-
Medical Tests (Nuc Med, Echo etc): Report Reviewed by me (Bone scan report noted)
Labs: Labs Reviewed by me
[2025-08-06 14:50] VITALS: BP 127/64
[2025-08-06 17:30] LABS: Glucose - Point of Care 127 mg/dl (70-99)
[2025-08-06 17:30] LABS: Glucose - Point of Care 102 mg/dl (70-99)
[2025-08-06 17:30] LABS: Glucose - Point of Care 153 mg/dl (70-99)
[2025-08-06 17:30] LABS: Glucose - Point of Care 69 mg/dl (70-99)
[2025-08-06] MEDS: ROXICODONE 10 MG PO (20:07)
--- NOTE | 2025-08-06 21:40 | PTCARENOTE ---
Offered to assist pt. with CHG wipes. Pt. stated helped him earlier with CHG.
[2025-08-06] MEDS: EFFEXOR XR 75 MG PO (22:45)
[2025-08-06] MEDS: VALTREX 500 MG PO (22:48)
[2025-08-06 23:17] LABS: Glucose - Point of Care 114 mg/dl (70-99)
[2025-08-06 23:17] LABS: Glucose - Point of Care 99 mg/dl (70-99)
[2025-08-06 23:37] VITALS: BP 142/67
[2025-08-07] MEDS: DILAUDID 1 MG IV ×5 (02:09→20:38)
[2025-08-07 03:06] LABS: Glucose - Point of Care 101 mg/dl (70-99)
[2025-08-07 05:58] VITALS: BMI 32.3
[2025-08-07 07:05] VITALS: BP 131/67
[2025-08-07 07:14] LABS: Glucose - Point of Care 97 mg/dl (70-99)
--- NOTE | 2025-08-07 09:29 | W.PN.HOSP.TC ---
Addendum entered and electronically signed by Layo Treviño MD 08/07/25 17:49:
Afib -paroxysmal
Original Note:
Today's Communication/Plan
-
cw current tx
Await podiatry input
Assessment / Plan
Assessment / Plan
Acute left leg pain with an external fixator in situ -patient recently had infected hardware of his left ankle which was removed and he also had MRSA bacteremia and septic arthritis. He was placed on external fixator but now coming in with acute
left leg pain. So for imaging with an x-ray and lower extremity CT shows no acute fracture or dislocation but the left leg is swollen with soft tissue edema.
White count is normal including CRP. CPK is normal. Unclear cause of fever. MRI of the left foot not possible as hardware is not compatible.
Bone scan 08/05-Scintigraphic findings suspicious for osteomyelitis/septic joint involving the left tibiotalar joint. Probable adjacent extensive reactive osteitis and/or degenerative change.
Continue with his IV daptomycin as planned before for MRSA bacteremia
Continue with oxycodone and Dilaudid for pain management.
ultrasound of the left leg is negative for DVT
Atrial fibrillation-seems paroxysmal. Sinus rhythm . Continue with amiodarone and Eliquis.
Diabetes mellitus type 2-on insulin 70/30 40 units in the morning and 20 units in the evening. Patient with multiple episodes of blood sugars. His hemoglobin A1c is 4.6. Very tightly controlled June. Hold all regular insulin and just watch the
blood sugars on sliding scale insulin for now .
Full code.
Portions of this chart may have been created with voice recognition software. Occasional wrong word or 'sound alike' substitutions may have occurred due to the inherent limitations of voice recognition software.
Anticipated Discharge: > 48 hours
Subjective/Interval History
-
Date of Service: August 07, 2025
Pain in leg is ok
No new symptoms. No fever or chills.
Objective Data
-
Vital Signs:
Vital Signs
Temp Pulse Resp BP Pulse Ox
97.7 F 65 16 131/67 97
08/07/25 07:05 08/07/25 07:05 08/07/25 07:05 08/07/25 07:05 08/07/25 07:05
I&O
08/06/25 08/07/25 08/08/25
06:59 06:59 06:59
Intake Total 1440 / 1440 900 / 900
Output Total 1650 / 1650 1575 / 1575
Balance -210 / -210 -675 / -675
Physical Exam
-
General: No Apparent Distress
Respiratory: Non Labored Respirations; Negative Accessory Resp Muscle Use
Cardiac: Regular Rhythm and S1/S2; Negative Tachycardic
Neuro: AO x 3
Psych: Calm
[2025-08-07] MEDS: CUBICIN 20 MG IV (09:39)
[2025-08-07] MEDS: KCL 10 MEQ PO (09:39)
[2025-08-07] MEDS: PACERONE 200 MG PO (09:39)
[2025-08-07] MEDS: TOPROL XL 25 MG PO (09:39)
[2025-08-07] MEDS: FEOSOL 325 MG PO (09:40)
[2025-08-07] MEDS: ELIQUIS 5 MG PO ×2 (09:40→20:38)
[2025-08-07] MEDS: LASIX 20 MG PO (09:40)
[2025-08-07 11:53] LABS: Glucose - Point of Care 126 mg/dl (70-99)
[2025-08-07 15:05] VITALS: BP 125/68
[2025-08-07 16:52] LABS: Glucose - Point of Care 123 mg/dl (70-99)
[2025-08-07 21:02] LABS: Glucose - Point of Care 108 mg/dl (70-99)
[2025-08-07] MEDS: VALTREX 500 MG PO (22:11)
[2025-08-07] MEDS: EFFEXOR XR 75 MG PO (22:12)
[2025-08-07 23:26] VITALS: BP 128/67
[2025-08-08] MEDS: DILAUDID 1 MG IV ×7 (00:11→21:24)
[2025-08-08 05:06] VITALS: BMI 31.8
[2025-08-08 07:16] VITALS: BP 125/68
[2025-08-08 08:27] LABS: Glucose - Point of Care 98 mg/dl (70-99)
[2025-08-08] MEDS: KCL 10 MEQ PO (08:28)
[2025-08-08] MEDS: LASIX 20 MG PO (08:29)
[2025-08-08] MEDS: PACERONE 200 MG PO (08:29)
[2025-08-08] MEDS: CUBICIN 20 MG IV (08:29)
[2025-08-08] MEDS: FEOSOL 325 MG PO (08:29)
[2025-08-08] MEDS: TOPROL XL 25 MG PO (08:30)
[2025-08-08] MEDS: ELIQUIS 5 MG PO (08:30)
[2025-08-08 11:51] LABS: Glucose - Point of Care 132 mg/dl (70-99)
--- NOTE | 2025-08-08 13:28 | W.PN.HOSP.TC ---
Today's Communication/Plan
-
NPO p MN for tentative washout, abx beads/spacer per Podiatry
ID consult; continue Dapto
Assessment / Plan
Assessment / Plan
Assessment:
Acute Left leg pain
- history of double arthrodesis and Achilles lengthening 04/21/25
- hospitalized 06/29 with swelling pain s/p incision and drainage, removal of hardware, application of multiplanar external fixator and intra operative bone biopsy and bone cultures revealing acute on chronic osteomyelitis of the tibia and talus, as
well as chronic osteomyelitis of the calcaneus bone
- patient with external fixator in situ
- MRSA growth requiring IV Daptomycin through 08/22/25
- NM bone scan 08/05: Scintigraphic findings suspicious for osteomyelitis/septic joint involving the left tibiotalar joint. Probable adjacent extensive reactive osteitis and/or degenerative change.
- WBC scan planned 08/09
- Podiatry following; NPO p MN for tentative washout, abx beads/spacer
- ID consulted
- continue pain control
Parox A. Fib, parox
- hold Eliquis with potential surgery tomorrow
- continue amiodarone
Type 2 DM
- home regimen is 70/30 40 units AM and 20 units HS - on hold. A1c 4.6%
- SSI
DVT ppx: SCDs
Code: Full
Anticipated Discharge: > 48 hours
Subjective/Interval History
-
Date of Service: August 08, 2025
reports LLE pain, unchanged
Objective Data
-
Vital Signs:
Vital Signs
Temp Pulse Resp BP Pulse Ox
97.9 F 65 16 125/68 98
08/08/25 07:16 08/08/25 08:30 08/08/25 07:16 08/08/25 08:30 08/08/25 07:16
I&O
08/07/25 08/08/25 08/09/25
06:59 06:59 06:59
Intake Total 900 / 900 1260 / 1260
Output Total 1575 / 1575 900 / 900 825 / 825
Balance -675 / -675 360 / 360 -825 / -825
Physical Exam
-
General: No Apparent Distress
HEENT: Normocephalic and Atraumatic
Respiratory: Negative Wheezes
Cardiac: Regular Rhythm and S1/S2
GI: Soft
Musculoskeletal: Other (LLE fixator device)
Neuro: AO x 3
Psych: Calm
Data Reviewed
-
Total Time Spent with Patient (in minutes): 45
Labs: Labs Reviewed by me
--- NOTE | 2025-08-08 14:08 | CM ---
CM following re: discharge planning.
Reviewed pt's chart, met with pt.
Per MD, OR tomorrow for washout for osteomyelitis.
Pt lives with spouse 2SH, 10 steps to enter, stays on 1st floor, gas 2 supportive sons. Pt reports he has a walker, cane, wheelchair, current with [facility] and [facility]. Pt was at [facility] in summer.
Pt made a strong request he will not go to any SNF and he made it very clear he will return back home with resumptions of [facility] therapy and [facility].
D/C plan: home with resumptions of [facility] therapy if indicated, [facility] and family support.
CM will follow with discharge plan updates as hospitalization progresses
--- NOTE | 2025-08-08 15:18 | CON.ID ---
Consultation
-
Date/Time Consultation Requested: 08/08/2025 0752
Date/Time Consultation Performed: 08/08/2025 1500
Requesting Provider: Dr. Nation
Performing Provider: Dr. Storey
Reason for Consultation: Right foot infection
Chief Complaint / Past History
History of Present Illness
Pepito Garnica is a 70-year-old male being evaluated at the request of Dr. Nation in regards to a left foot infection. History is obtained from chart review, along with patient interview.
The patient is known to the Infectious Diseases service, having been seen last on July 12 at which time he was being treated for a left foot/ankle hardware infection and septic arthritis. During that hospitalization he was found to have MRSA
bacteremia. He was placed on a course of daptomycin, to complete a 6-week course of therapy (through 08/22/2025). He has been followed by Infectious Diseases as an outpatient.
He presents to the hospital following a sudden development of left leg pain going from his foot up to the distal knee area. He notes that the pain is 'everywhere in the leg'. He denies any recent fevers or chills. He denies any significant
drainage from any of the pin sites.
At presentation of the hospital he underwent CT imaging which did not show any acute fracture or dislocation. He was admitted for further workup. At present, he notes that his pain has improved. He is been evaluated by Podiatry. An MRI cannot be
performed but a bone scan is planned and possible OR for washout and biopsy.
Past History
Additional Past Medical History:
Chronic Persistent Atrial Fibrillation
HTN
DM-II
Obesity
MELBA
BPH
Hx UE DVT
Charcot Foot
Additional Past Surgical History:
Left Foot Double Arthrodesis and Achilles Lengthening (04/21/25)
Cardiac Ablation
Hernia Repair
TKA
Rotator Cuff Surgery
Appendectomy
Allergy History:
erythromycin base Allergy (Verified 06/29/25 15:08)
Nausea / Vomiting
morphine Allergy (Verified 06/29/25 22:17)
'gives me a bad headache'
Medications Reviewed: Yes
Current Antibiotics:
Daptomycin 1 gm IV q.24 hours
Social History
Tobacco: Former Smoker
Alcohol: Occasional
Drug: None
Family History
Family History: Not Pertinent
Review of Systems
Vital Signs
Temp Pulse Resp BP Pulse Ox
97.9 F 65 16 125/68 98
08/08/25 07:16 08/08/25 08:30 08/08/25 07:16 08/08/25 08:30 08/08/25 07:16
Physical Exam
Physical Exam
Constitutional: No Acute Distress, Comfortable and Non-toxic
Eyes: No Conjunctival Hemorrhage and Sclera Anicteric
Oral: No Thrush and No Ulcers
Cardiovascular: S1/S2; Negative S3/S4
Pulmonary: Clear; Negative Wheezes or Rales
Gastrointestinal: Soft, Non Tender, Non Distended and Normal Bowel Sounds
Extremities: Edema (B/L LE's; 1+); Negative Erythema or Venous Insufficiency
Musculoskeletal: Other (Left foot in external fixator. No pin site drainage.)
Skin: Warm and Dry; Negative Rash
Neurological: Awake and Alert
Psychological: Calm
.
Lab / Diagnostic Study Results
08/06/25 05:50
08/05/25 04:08
Abs Immat Gran (auto) 0.0 10^3/uL (0-0.05) 08/04/25 13:19
Absolute Neuts (auto) 9.8 10^3/uL (1.4-6.5) H 08/04/25 13:19
Absolute Lymphs (auto) 1.0 10^3/uL (1.2-3.4) L 08/04/25 13:19
Absolute Monos (auto) 0.6 10^3/uL (0.1-0.6) 08/04/25 13:19
Absolute Basos (auto) 0.1 10^3/uL (0-0.2) 08/04/25 13:19
Immature Gran % 0.3 % (0-0.5) 08/04/25 13:19
Neutrophils % 84.9 % (42.2-75.2) H 08/04/25 13:19
Lymphocytes % 8.9 % (20.5-51.1) L 08/04/25 13:19
Monocytes % 5.0 % (1.7-9.3) 08/04/25 13:19
Eosinophils % 0.3 % (0-6) 08/04/25 13:19
Basophils % 0.6 % (0-2) 08/04/25 13:19
Lactic Acid Cancelled 08/04/25 17:15
C-Reactive Protein < 5.00 mg/L (0.0-10.00) 08/04/25 13:19
Microbiology Results
Micro:
08/04/25 13:37 Blood Culture - Preliminary
Blood/Venous No Growth in 4 days- Final report to follow
08/04/25 13:18 Blood Culture - Preliminary
Blood/Venous No Growth in 4 days- Final report to follow
Imaging:
08/05/2025 Bone scan (three-phase): Scintigraphic findings suspicious for osteomyelitis/septic joint involving the left tibiotalar joint. Probable adjacent extensive reactive osteitis and/or degenerative change.
08/04/2025 CT lower extremity: There appears to be a large tibiotalar joint effusion. There also relative widening of the subtalar joint, and there is a suggestion of a subtalar joint effusion. There are some areas of the subtalar joint where the
cortical margins appear somewhat indistinct, with relative loss of the hyperdense cortex. Possibility of septic joint and adjacent osteomyelitis cannot be excluded.
Assessment / Plan
# Left foot/leg pain
# Hx Left foot/ankle hardware infection and septic arthritis
- 04/21/25 s/p arthrodesis and Achilles tendon lengthening
- 07/01/25 s/p (L) foot OR washout,debridement -> OR cx MRSA
- 07/11 s/p all HW removal and application of ring external fixation
- OR cultures : MRSA
# Hx MRSA bacteremia x 2 sets - foot source
# Hx MRSA bacteremia, septic arthritis of left shoulder s/p washout completed >6 weeks of IV abx at OSH (12/2024)
# DM with Charcot arthropathy
- TTE: echodensity AV likely calcification
Recommendations:
- Continue Daptomycin 1000 IV q24
- Prior course noted to be through 08/22/2025 (6 weeks antibiotics)
Check CK in AM and follow-up weekly while on daptomycin
Check ESR and CRP in AM.
Continue to hold statin while on daptomycin.
For possible OR 08/09 for bone biopsy
[2025-08-08 15:38] VITALS: BP 133/71
[2025-08-08 17:01] LABS: Glucose - Point of Care 84 mg/dl (70-99)
[2025-08-08 19:05] VITALS: BP 126/68
--- NOTE | 2025-08-08 21:10 | W.PN.UPDATE ---
Update Note
Progress Note Update
70 M presents with L ankle pain s/p left ankle Removal of Hardware with application of multiplanar external fixater (DOS 07/11/25). No pin tract infections.
- Plan for OR tomorrow LLE washout with adjustment of exfix and application of abx beads
-- Tc99 reviewed
-- NPO at midnight
- continue abx per ID
- continue NWB LLE
- will continue to monitor
[2025-08-08] MEDS: VALTREX 500 MG PO (21:22)
[2025-08-08] MEDS: EFFEXOR XR 75 MG PO (21:22)
[2025-08-08 21:34] LABS: Glucose - Point of Care 96 mg/dl (70-99)
[2025-08-08 22:34] VITALS: BP 130/74
[2025-08-09] VITALS (12 sets, daily range): BP systolic 118–138; BP diastolic 61–74; BMI 31.7
[2025-08-09] MEDS: DILAUDID 1 MG IV ×3 (01:41→10:14)
[2025-08-09 05:07] LABS: Hematocrit 30.5 % (39.0-52.0); Hemoglobin 9.5 g/dL (13.0-18.0); Mean Corp Hgb Conc. 31.1 g/dL (33.0-37.0); Mean Corpuscular Volume 83.6 fL (80.0-94.0); Platelet Count 258 10^3/uL (130-400); Red Cell Dist. Width 21.0 % (11.5-14.5)
[2025-08-09 05:29] LABS: Blood Urea Nitrogen 17 mg/dl (9-20); Calcium 8.9 mg/dl (8.4-10.2); Carbon Dioxide 26 mmol/L (22-30); Chloride 105 mmol/L (98-107); Estimated Creatinine Clearance 95 ml/min; Glucose 110 mg/dl (70-99); Potassium 4.1 mmol/L (3.5-5.1); Sodium 137 mmol/L (135-145); eGFR > 60.00
[2025-08-09 05:35] LABS: C-Reactive Protein 8.90 mg/L (0.0-10.00)
[2025-08-09 07:01] LABS: Glucose - Point of Care 109 mg/dl (70-99)
[2025-08-09] MEDS: FEOSOL 325 MG PO (07:36)
[2025-08-09] MEDS: KCL 10 MEQ PO (07:36)
[2025-08-09] MEDS: TOPROL XL 25 MG PO (07:40)
[2025-08-09] MEDS: PACERONE 200 MG PO (07:40)
[2025-08-09] MEDS: LASIX 20 MG PO (07:41)
[2025-08-09] MEDS: CUBICIN 20 MG IV (07:41)
[2025-08-09] MEDS: COLACE 100 MG PO (07:49)
[2025-08-09] MEDS: DILAUDID 0.25 MG IV (07:49)
--- NOTE | 2025-08-09 08:52 | W.PN.ID1 ---
Date of Service
Date of Service: August 09, 2025
Today's Communication
Continue daptomycin.
Assessment / Plan
# Left foot/leg pain
# Recent Left foot/ankle hardware infection and septic arthritis
- 04/21/25 s/p arthrodesis and Achilles tendon lengthening
- 07/01/25 s/p (L) foot OR washout,debridement -> OR cx MRSA
- 07/11 s/p all HW removal and application of ring external fixation
- OR cultures : MRSA
# Recent MRSA bacteremia x 2 sets - foot source
# Past Hx MRSA bacteremia, septic arthritis of left shoulder s/p washout completed >6 weeks of IV abx at OSH (12/2024)
# DM with Charcot arthropathy
- TTE: echodensity AV likely calcification
Recommendations:
CRP: normal
Continue to hold statin while on daptomycin.
Bone scan suspicious for osteo/septic joint left tibio-talar joint. Of note bone scan has low specificity.
For OR 08/09 for bone biopsy
- Continue Daptomycin 1000 IV q24
Prior course noted to be through 08/22/2025 (6 weeks antibiotics)
CK normal. Follow weekly while on daptomycin
Chief Complaint
-: Other (foot osteo)
Subjective / Review of Systems
No complaints today.
Vital Signs / Physical Exam
Vital Signs
Vital Signs
Temp Pulse Resp BP Pulse Ox
97.5 F 67 18 138/64 96
08/09/25 07:20 08/09/25 07:41 08/09/25 07:20 08/09/25 07:41 08/09/25 07:20
Physical Exam
Constitutional: No Acute Distress and Comfortable
Cardiovascular: Regular Rate and S1/S2
Pulmonary: Clear
Gastrointestinal: Soft, Non Tender and Non Distended
Extremities: Negative Edema
Wound: Other (LLE external fixator in place, no drainage)
Neurological: AO x 3
Objective Data
Lab Data
Lab Results
08/09/25 04:37
08/09/25 04:37
ESR 79 mm/hour (0-20) H 08/09/25 04:37
Estimated Creat Clear 95 ml/min 08/09/25 04:37
Lactic Acid Cancelled 08/04/25 17:15
Total Bilirubin 0.5 mg/dl (0.2-1.3) 08/04/25 13:19
AST 25 U/L (17-59) 08/04/25 13:19
ALT 18 U/L (0-50) 08/04/25 13:19
Alkaline Phosphatase 127 U/L (38-126) H 08/04/25 13:19
C-Reactive Protein 8.90 mg/L (0.0-10.00) 08/09/25 04:37
Most recent labs reviewed.
Micro Results:
08/04/25 13:37 Blood Culture - Preliminary
Blood/Venous No Growth in 4 days- Final report to follow
08/04/25 13:18 Blood Culture - Preliminary
Blood/Venous No Growth in 4 days- Final report to follow
Imaging:
08/05/2025 Bone scan (three-phase): Scintigraphic findings suspicious for osteomyelitis/septic joint involving the left tibiotalar joint. Probable adjacent extensive reactive osteitis and/or degenerative change.
08/04/2025 CT lower extremity: There appears to be a large tibiotalar joint effusion. There also relative widening of the subtalar joint, and there is a suggestion of a subtalar joint effusion. There are some areas of the subtalar joint where the
cortical margins appear somewhat indistinct, with relative loss of the hyperdense cortex. Possibility of septic joint and adjacent osteomyelitis cannot be excluded.
--- NOTE | 2025-08-09 09:05 | W.PN.HOSP.TC ---
Today's Communication/Plan
-
OR today with Podiatry
continue Dapto per ID
holding Eliquis
D5 fluids
Assessment / Plan
Assessment / Plan
Assessment:
Acute Left leg pain
- history of double arthrodesis and Achilles lengthening 04/21/25
- hospitalized 06/29 with swelling pain s/p incision and drainage, removal of hardware, application of multiplanar external fixator and intra operative bone biopsy and bone cultures revealing acute on chronic osteomyelitis of the tibia and talus, as
well as chronic osteomyelitis of the calcaneus bone
- patient with external fixator in situ
- MRSA growth requiring IV Daptomycin through 08/22/25. follow CK levels
- NM bone scan 08/05: Scintigraphic findings suspicious for osteomyelitis/septic joint involving the left tibiotalar joint. Probable adjacent extensive reactive osteitis and/or degenerative change.
- Podiatry following; NPO ptoday for LLE washout, abx beads/spacer and adjustment of external fixator
- ID following
- continue pain control
Parox A. Fib, parox
- hold Eliquis perioperatively
- continue amiodarone
Type 2 DM
- home regimen is 70/30 40 units AM and 20 units HS - on hold. A1c 4.6%
- SSI
- D5 fluids miracle-op
HLD - holding statin while on Dapto
DVT ppx: SCDs
Code: Full
Anticipated Discharge: > 48 hours
Subjective/Interval History
-
Date of Service: August 09, 2025
no new complaints at present; stable LLE pain
Objective Data
-
Labs:
Laboratory Results
08/09/25
04:37
WBC 6.9
Hgb 9.5 L
Hct 30.5 L
Plt Count 258
Sodium 137
Potassium 4.1
Chloride 105
Carbon Dioxide 26
BUN 17
Creatinine 0.9
Glucose 110 H
Calcium 8.9
Vital Signs:
Vital Signs
Temp Pulse Resp BP Pulse Ox
97.5 F 67 18 138/64 96
08/09/25 07:20 08/09/25 07:41 08/09/25 07:20 08/09/25 07:41 08/09/25 07:20
I&O
08/08/25 08/09/25 08/10/25
06:59 06:59 06:59
Intake Total 1260 / 1260 480 / 480
Output Total 900 / 900 1025 / 1025 300 / 300
Balance 360 / 360 -545 / -545 -300 / -300
Physical Exam
-
General: No Apparent Distress
HEENT: Normocephalic and Atraumatic
Respiratory: Negative Wheezes
Cardiac: Regular Rhythm and S1/S2
GI: Soft
Musculoskeletal: Other (LLE fixator device)
Neuro: AO x 3
Psych: Calm
Data Reviewed
-
Total Time Spent with Patient (in minutes): 42
Labs: Labs Reviewed by me
[2025-08-09] MEDS: DILAUDID IV (10:14)
[2025-08-09] MEDS: D5/0.9% SODIUM CHLORIDE 1000 IV (11:52)
[2025-08-09 12:59] LABS: Glucose - Point of Care 109 mg/dl (70-99)
--- NOTE | 2025-08-09 12:59 | CM ---
CM following re: discharge planning.
Reviewed pt's chart, met with pt.
Per MD, OR today for washout for osteomyelitis, continue supportive care.
Pt lives with spouse 2SH, 10 steps to enter, stays on 1st floor, gas 2 supportive sons. Pt reports he has a walker, cane, wheelchair, current with [facility] and [facility]. Pt was at [facility] in summer.
Pt made a strong request he will not go to any SNF and he made it very clear he will return back home with resumptions of [facility] therapy and [facility].
D/C plan: home with resumptions of [facility] therapy if indicated, [facility] and family support.
CM will follow with discharge plan updates as hospitalization progresses
[2025-08-09] MEDS: DILAUDID 1.5 MG IV ×3 (14:33→23:55)
--- NOTE | 2025-08-09 17:51 | W.PN.UPDATE ---
Update Note
Progress Note Update
70 M s/p L ankle I&D, adjustment of exfix, bone bx x2
- NWB LLE
- resume pin care @ home 3x per week
-- dressings remain C/D/I in hospital
- continue abx per ID
-- bone bx x2(talus, tibia), deep cx
- PT/OT
- will reassess on AM rounds
[2025-08-09 18:01] LABS: Glucose - Point of Care 99 mg/dl (70-99)
--- NOTE | 2025-08-09 18:13 | W.PN.UPDATE ---
Update Note
Progress Note Update
Cross cover--> asked to changed back to his diet post-procedure. Placed him back on diabetic diet.
--- NOTE | 2025-08-09 18:35 | PTCARENOTE ---
Patient received from PACU nurse Amy. FOLEY, reports no discomfort at this time. VS within normal limits. External fixator on L foot- small amount of shadowing noted on felipe dressing. Awaiting dinner tray.
[2025-08-09 22:01] LABS: Glucose - Point of Care 171 mg/dl (70-99)
[2025-08-09] MEDS: EFFEXOR XR 75 MG PO (22:43)
[2025-08-09] MEDS: VALTREX 500 MG PO (22:43)
[2025-08-10 03:27] VITALS: BP 125/64
[2025-08-10] MEDS: DILAUDID 1.5 MG IV ×2 (03:56→08:32)
[2025-08-10 05:59] LABS: Hematocrit 30.4 % (39.0-52.0); Hemoglobin 9.5 g/dL (13.0-18.0); Mean Corp Hgb Conc. 31.3 g/dL (33.0-37.0); Mean Corpuscular Volume 84.7 fL (80.0-94.0); Platelet Count 265 10^3/uL (130-400); Red Cell Dist. Width 20.2 % (11.5-14.5)
[2025-08-10 06:00] VITALS: BMI 31.4
[2025-08-10 06:19] LABS: Blood Urea Nitrogen 19 mg/dl (9-20); Calcium 8.8 mg/dl (8.4-10.2); Carbon Dioxide 26 mmol/L (22-30); Chloride 104 mmol/L (98-107); Estimated Creatinine Clearance 106 ml/min; Glucose 132 mg/dl (70-99); Potassium 4.3 mmol/L (3.5-5.1); Sodium 137 mmol/L (135-145); eGFR > 60.00
[2025-08-10 07:01] VITALS: BP 119/69
[2025-08-10 08:04] LABS: Glucose - Point of Care 127 mg/dl (70-99)
[2025-08-10] MEDS: KCL 10 MEQ PO (08:31)
[2025-08-10] MEDS: COLACE 100 MG PO (08:31)
[2025-08-10] MEDS: TOPROL XL 25 MG PO (08:31)
[2025-08-10] MEDS: PACERONE 200 MG PO (08:31)
[2025-08-10] MEDS: FEOSOL 325 MG PO (08:31)
[2025-08-10] MEDS: LASIX 20 MG PO (08:31)
[2025-08-10] MEDS: CUBICIN 20 MG IV (08:32)
--- NOTE | 2025-08-10 09:13 | W.PN.UPDATE ---
Update Note
Progress Note Update
70 M s/p L ankle I&D, adjustment of exfix, bone bx x2
- NWB LLE
- Patient will require home care/wound care for pin care @ home 3x per week
-- dressings remain C/D/I in hospital
- continue abx per ID
-- bone bx x2(talus, tibia), deep cx
- PT/OT
- stable for dc to follow up in office in 2 weeks with me
--- NOTE | 2025-08-10 09:23 | W.PN.ID1 ---
Date of Service
Date of Service: August 10, 2025
Today's Communication
See below.
Assessment / Plan
# Left foot/leg pain
# Recent Left foot/ankle hardware infection and septic arthritis
- 04/21/25 s/p arthrodesis and Achilles tendon lengthening
- 07/01/25 s/p (L) foot OR washout,debridement -> OR cx MRSA
- 07/11 s/p all HW removal and application of ring external fixation
- OR cultures : MRSA
# Recent MRSA bacteremia x 2 sets - foot source
# Past Hx MRSA bacteremia, septic arthritis of left shoulder s/p washout completed >6 weeks of IV abx at OSH (12/2024)
# DM with Charcot arthropathy
- TTE: echodensity AV likely calcification
Recommendations:
CRP: normal
Continue to hold statin while on daptomycin.
Bone scan suspicious for osteo/septic joint left tibio-talar joint. Of note bone scan has low specificity.
08/09 s/p I+D, placement of Vanco beads, adjustment of loose external fixator
OR cx and path pending.
Extend Daptomycin 1000 IV q24 from 6 weeks to 8 weeks through 09/05/25.
Follow weekly CBV, CMP, CK, CRP, ESR
Home infusion sheet submitted to [employer].
Follow-up with me in 3 weeks.
Chief Complaint
-: Other (foot osteo)
Vital Signs / Physical Exam
Vital Signs
Vital Signs
Temp Pulse Resp BP Pulse Ox
97.6 F 67 18 119/69 97
08/10/25 07:01 08/10/25 08:31 08/10/25 07:01 08/10/25 08:31 08/10/25 07:01
Physical Exam
Constitutional: No Acute Distress and Comfortable
Cardiovascular: Regular Rate and S1/S2
Pulmonary: Clear
Gastrointestinal: Soft, Non Tender and Non Distended
Extremities: Negative Edema
Wound: Other (LLE external fixator in place, no drainage)
Neurological: AO x 3
Lines: PICC (RUE no erythema)
Objective Data
Lab Data
Lab Results
08/10/25 05:27
08/10/25 05:27
ESR 79 mm/hour (0-20) H 08/09/25 04:37
Estimated Creat Clear 106 ml/min 08/10/25 05:27
Lactic Acid Cancelled 08/04/25 17:15
Total Bilirubin 0.5 mg/dl (0.2-1.3) 08/04/25 13:19
AST 25 U/L (17-59) 08/04/25 13:19
ALT 18 U/L (0-50) 08/04/25 13:19
Alkaline Phosphatase 127 U/L (38-126) H 08/04/25 13:19
C-Reactive Protein 8.90 mg/L (0.0-10.00) 08/09/25 04:37
Most recent labs reviewed.
Micro Results:
08/09/25 17:55 Wound Culture - Pending
Ankle - Left Gram Stain - Preliminary
08/09/25 17:55 Anaerobic Culture - Pending
Ankle - Left
08/04/25 13:37 Blood Culture - Final
Blood/Venous No Growth - Final Report
08/04/25 13:18 Blood Culture - Final
Blood/Venous No Growth - Final Report
Imaging:
08/05/2025 Bone scan (three-phase): Scintigraphic findings suspicious for osteomyelitis/septic joint involving the left tibiotalar joint. Probable adjacent extensive reactive osteitis and/or degenerative change.
08/04/2025 CT lower extremity: There appears to be a large tibiotalar joint effusion. There also relative widening of the subtalar joint, and there is a suggestion of a subtalar joint effusion. There are some areas of the subtalar joint where the
cortical margins appear somewhat indistinct, with relative loss of the hyperdense cortex. Possibility of septic joint and adjacent osteomyelitis cannot be excluded.
--- NOTE | 2025-08-10 10:43 | CM ---
CM following re: discharge planning.
Reviewed pt's chart, met with pt.
Per MD, pt is medically stable to be discharged and pt will need to continue daptomycin 1000 mg IV Q24 till 09/05/25. Pt is aware, expressed his agreement and stated his spouse will transport home. IMM reviewed, placed on chart, pt has a copy.
Pt stated he is current with [facility] and [facility] .
A referral to [facility] made, a script with pt's clinical faxed to [facility] infusion at [phone], spoke to pharmacist Zackary and he confirmed that pt is accepted to continue home infusion therapy and they will start tomorrow.
A referral to [facility] made.
Pt lives with spouse 2SH, 10 steps to enter, stays on 1st floor, has 2 supportive sons, has a walker, cane, wheelchair.
Please fax discharge instruction to [facility] [phone] and [facility] [phone]
D/C plan: home with resumptions of [facility] therapy, [facility] and family support. Spouse to transport.
[2025-08-10 11:18] VITALS: BP 112/61
[2025-08-10] MEDS: ROXICODONE 10 MG PO (12:44)
[2025-08-10 12:54] LABS: Glucose - Point of Care 132 mg/dl (70-99)
[2025-08-10] MEDS: ELIQUIS 5 MG PO (13:42)
--- NOTE | 2025-08-10 14:08 | W.PN.HOSP.TC ---
Addendum entered and electronically signed by Joseph Nation MD 08/10/25 15:21:
PDMP: received Oxy 10mg script on 08/05; patient advised to only take Dilaudid post-op for 5 days, then can revert back to oxycodone. d/w [facility] Pharmacist Aashish
Original Note:
Today's Communication/Plan
-
dc to home/VN
Assessment / Plan
Assessment / Plan
Assessment:
Acute Left leg pain
- history of double arthrodesis and Achilles lengthening 04/21/25
- hospitalized 06/29 with swelling pain s/p incision and drainage, removal of hardware, application of multiplanar external fixator and intra operative bone biopsy and bone cultures revealing acute on chronic osteomyelitis of the tibia and talus, as
well as chronic osteomyelitis of the calcaneus bone
- patient with external fixator in situ
- MRSA growth requiring IV Daptomycin through 09/05/25. follow CK levels, ESR/CRP and labs weekly
- NM bone scan 08/05: Scintigraphic findings suspicious for osteomyelitis/septic joint involving the left tibiotalar joint. Probable adjacent extensive reactive osteitis and/or degenerative change.
- Podiatry following; s/p L ankle I&D, adjustment of exfix, bone bx x2 08/09. OP f/u in 2 weeks
- continue pain control
Parox A. Fib, parox
- resume Eliquis at discharge; reviewed with Podiatry
- continue amiodarone
Type 2 DM
- home regimen is 70/30 40 units AM and 20 units HS; will reduce to 30 AM and 20 HS
- SSI
HLD - holding statin while on Dapto
DVT ppx: SCDs
Code: Full
More than 30 minutes spent in discharge including
Final examination of the patient
Summarizing hospital stay
Instructions for continuing care to all relevant caregivers
Preparation of discharge records, prescriptions, and referral forms
Total time spent (in minutes): 41
Anticipated Discharge: Today
Subjective/Interval History
-
Date of Service: August 10, 2025
resting comfortably, no complaints at present
Objective Data
-
Labs:
Laboratory Results
08/10/25
05:27
WBC 8.3
Hgb 9.5 L
Hct 30.4 L
Plt Count 265
Sodium 137
Potassium 4.3
Chloride 104
Carbon Dioxide 26
BUN 19
Creatinine 0.8
Glucose 132 H
Calcium 8.8
Vital Signs:
Vital Signs
Temp Pulse Resp BP Pulse Ox
97.9 F 63 18 112/61 98
08/10/25 11:18 08/10/25 11:18 08/10/25 11:18 08/10/25 11:18 08/10/25 11:18
I&O
08/09/25 08/10/25 08/11/25
06:59 06:59 06:59
Intake Total 480 / 480 640 / 640
Output Total 1025 / 1025 2575 / 2575
Balance -545 / -545 -1934 / -1934
Physical Exam
-
General: No Apparent Distress
HEENT: Normocephalic and Atraumatic
Respiratory: Negative Wheezes
Cardiac: Regular Rhythm and S1/S2
GI: Soft
Genito-urinary: No Costovertebral Tender
Neuro: AO x 3
Psych: Calm
Data Reviewed
-
Total Time Spent with Patient (in minutes): 41
Labs: Labs Reviewed by me
--- NOTE | 2025-08-10 14:24 | W.DS.TRANS ---
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
-
Discharge Instructions:
Discharge Diagnosis/Procedures LLE pain - with osteomyelitis/septic joint
involving the left tibiotalar joint s/p I&D, abx
beds and adjustment of external fixator. bone
biopsy
Diet Diabetic, Carb Controlled
Activity As tolerated
Additional Activity NWB LLE
Bathing Restrictions None
Other Services PT,OT
Instructions:
Stand-Alone Forms:
Changes to Home Medications: No
Discharge Medications:
DC Medications w/original date entered in [employer]
amiodarone 200 mg tablet 200 mg PO DAILY AFIB 04/14/25
apixaban 5 mg tablet (Eliquis) 5 mg PO BID Blood Clot Prevention/Tx 04/14/25
atorvastatin 10 mg tablet 10 mg PO QPM High Cholesterol 04/14/25
Held on 08/10/25. Instructions: until cleared to resume (after completion of Daptomycin)
furosemide 20 mg tablet 20 mg PO DAILY Fluid Retention/Swelling 04/14/25
insulin NPH-regular 70-30 U-100 insulin 100 unit/mL subcutaneous pen (Novolin 70-30 FlexPen U-100 Insulin) 20 unit SC HS Diabetes 04/14/25
metoprolol succinate 25 mg tablet,extended release 24 hr 25 mg PO DAILY Blood Pressure 04/14/25
tirzepatide 7.5 mg/0.5 mL subcutaneous pen injector (Mounjaro) 7.5 mg SC ESPINAL Diabetes 04/14/25
valacyclovir 500 mg tablet 500 mg PO HS ANTI VIRAL 04/14/25
venlafaxine 75 mg capsule,extended release 24 hr (Effexor XR) 75 mg PO HS Mental Health/Anxiety 04/14/25
potassium chloride 10 mEq tablet,extended release 10 meq PO DAILY Supplement 06/29/25
DAPTOmycin [Cubicin] 1,000 mg As Directed mls/hr IV Q24H 07/13/25
ferrous sulfate 325 mg (65 mg iron) tablet 325 mg PO DAILY 08/04/25
hydromorphone 2 mg tablet (Dilaudid) 2 mg PO Q8H PRN severe intractable pain #15 tabs 08/10/25
insulin NPH-regular 70-30 U-100 insulin 100 unit/mL subcutaneous pen (Novolin 70-30 FlexPen U-100 Insulin) 30 unit (0.3 mL) SC DAILY Diabetes #0 mL 08/10/25
oxycodone 15 mg tablet 10 mg (0.6667 x 15 mg) PO Q4HPRN PRN severe pain #18 tabs 08/10/25
Home Medication Changes
Pending Results: No
Total time spent discharging patient (in min): 42
[2025-08-10] MEDS: FLUZONE HIGH-DOSE 2025-26 0.5 ML IM (14:33)
[2025-08-10 15:06] VITALS: BP 120/65
--- NOTE | 2025-08-10 15:18 | W.[place]-PDMP ---
[place]-PDMP
-
Checked the [place]- Prescription Drug Monitoring Program website, no red flags identified; safe to proceed with prescription.
== END 2025-08-10 15:27 | disposition home health service (06) | DRG 940 ==
LOC: 2 NORTH 18:06
PROVIDERS: Physician Assistant; Student in an Organized Health Care Education/Training Program; ADMITTING PHYSICIAN Internal Medicine; ATTENDING PHYSICIAN Internal Medicine; CONSULT PHYSICIAN Student in an Organized Health Care Education/Training Program; EMERGENCY PHYSICIAN Emergency Medicine; FAMILY PHYSICIAN Internal Medicine; OTHER PHYSICIAN Internal Medicine Infectious Disease
PROC: 0QBH0ZX Excision of Left Tibia, Open Approach, Diagnostic (ICD-10-PCS; 2025-08-09)
PROC: 3E0U029 Introduction of Other Anti-infective into Joints, Open Approach (ICD-10-PCS; 2025-08-09)
PROC: 0SBG0ZZ Excision of Left Ankle Joint, Open Approach (ICD-10-PCS; 2025-08-09)
PROC: 0QBM0ZX Excision of Left Tarsal, Open Approach, Diagnostic (ICD-10-PCS; 2025-08-09)
PROC: 0SSGX5Z Reposition Left Ankle Joint with External Fixation Device, External Approach (ICD-10-PCS; 2025-08-09)
DX: T84.59XD Infection and inflammatory reaction due to other internal joint prosthesis, subsequent encounter (principal); M00.9 Pyogenic arthritis, unspecified; R78.81 Bacteremia; E66.9 Obesity, unspecified; G47.33 Obstructive sleep apnea (adult) (pediatric); N40.0 Benign prostatic hyperplasia without lower urinary tract symptoms; Z86.718 Personal history of other venous thrombosis and embolism; I10 Essential (primary) hypertension; Z87.891 Personal history of nicotine dependence; B95.62 Methicillin resistant Staphylococcus aureus infection as the cause of diseases classified elsewhere; Z79.01 Long term (current) use of anticoagulants; E78.5 Hyperlipidemia, unspecified; E11.610 Type 2 diabetes mellitus with diabetic neuropathic arthropathy; Z79.899 Other long term (current) drug therapy; I48.0 Paroxysmal atrial fibrillation
CPT/HCPCS: 71045; 73610; 73630; 73701; 78315; 80048; 80053; 82550; 82962; 83036; 83605; 85025; 85027; 85652; 86140; 86803; 87040; 87070; 87075; 87205; 88305; 88311; 90662; 93971; 96374; 96376; 97163; 97166; 97542; 99285; A9503; G0008; J0878; Q9967

== ENCOUNTER 2025-08-21 16:58 | Emergency (ER) | payer MEDICARE, OTHER, SELFPAY ==
[2025-08-21 17:02] VITALS: BP 112/68
[2025-08-21 19:38] LABS: Hematocrit 31.5 % (39.0-52.0); Hemoglobin 10.1 g/dL (13.0-18.0); Mean Corp Hgb Conc. 32.1 g/dL (33.0-37.0); Mean Corpuscular Volume 83.3 fL (80.0-94.0); Nucleated Red Blood Cells % 0 % (-); Platelet Count 253 10^3/uL (130-400); Red Cell Dist. Width 18.9 % (11.5-14.5)
[2025-08-21 19:48] LABS: INR 1.17; PT 15.2 Sec (11.4-14.6)
[2025-08-21 19:49] LABS: APTT 32.6 Sec (23.4-35.0)
[2025-08-21 19:53] LABS: Blood Urea Nitrogen 17 mg/dl (9-20); Calcium 8.8 mg/dl (8.4-10.2); Carbon Dioxide 26 mmol/L (22-30); Chloride 107 mmol/L (98-107); Glucose 199 mg/dl (70-99); Potassium 4.5 mmol/L (3.5-5.1); Sodium 139 mmol/L (135-145); eGFR > 60.00
[2025-08-21] MEDS: DILAUDID 0.5 MG IV ×2 (19:53→20:50)
--- NOTE | 2025-08-21 20:34 | ED.GENMED ---
History of Present Illness
General
Chief Complaint: Post Operative Problem(s)
Source: patient
Time Seen by Provider: 08/21/25 18:43
History of Present Illness
History of Present Illness:
70-year-old male with past medical history of atrial fibrillation, hypertension, hyperlipidemia, insulin-dependent diabetes, previous colon cancer presenting to the emergency department for evaluation of bleeding from his external fixator of the
left foot and ankle that he had placed 4 to [address] Deluna, patient notes that on Friday he started to have some increased pain to the ankle and then noticed the bleeding from one of the proximalmost pins that was saturating the
dressing. Due to the increased bleeding patient came to the ER tonight. He denies any lightheadedness, dizziness, focal weakness or numbness. He notes associated pain not improved with medication at home. Denies any fevers, chills, rigors or
any other concerns, no new trauma.
Past History
Past History
ED Past Medical History: Arrthythmia, Cancer, HTN and Hypercholesterolemia
ED Past Surgical History: Appendectomy, Bowel resection, Orthopedic, Urological and Other
Social History
Tobacco: Non-smoker
Alcohol: None
Drug: None
Personal:
Living: with family
Review of Systems
Review of Systems
All Other Systems: ROS reviewed and negative except as documented in HPI and ROS
Phy Exam
Physical Exam
Physical Exam:
GENERAL: Alert , in no apparent distress
EYE: conjunctiva clear
Head: Normocephalic atraumatic
NECK: Supple,
ENT: mmm.
LUNGS: no acute respiratory distress
NEUROLOGICAL: Alert and oriented
SKIN: Warm and dry, , large external fixator the foot and ankle noted, at the proximalmost portion one of the pins does have blood seeping through the dressing but there does not appear to be any active bleeding. The toes are well-perfused
MUSCULOSKELETAL: well perfused.
PSYCH: Normal and appropriate interaction.
Scores
Heart Failure Risk
Heart Failure Risk Score: Not Applicable
Heart Score for Chest Pain Patients
STEMI patient?: Not applicable
Withdrawal Assessment of Alcohol
Withdrawal Assessment Completed?: Not applicable
Course
Orders/Labs/Results
Orders:
Orders
08/21/25 18:57
HYDROmorphone [Dilaudid] 0.5 mg IV NOW STA
08/21/25 19:14
CR Foot - Left Min 3 Views Urgent
Comment:
Reason For Exam: pain, post op
08/21/25 19:15
CR Ankle - Left Min 3 Views Urgent
Comment:
Reason For Exam: pain, post op
CR Leg Tibia/fibula Left 2 Vw Urgent
Comment:
Reason For Exam: pain, post op
08/21/25 19:17
CR Chest Portable - 1 View Urgent
Comment:
Reason For Exam: picc line
Reason Study Needs to be Portable: Other
08/21/25 19:27
PTT Urgent
Prothrombin Time Urgent
08/21/25 19:28
Type+Screen Urgent
Basic Metabolic Panel Urgent
Complete Blood Count/With Diff Urgent
08/21/25 20:39
HYDROmorphone [Dilaudid] 0.5 mg IV NOW STA
Abnormal Lab Results
08/21/25 08/21/25
19:27 19:28
RBC 3.78 L 10^6/uL
(4.70-6.10)
Hgb 10.1 L g/dL
(13.0-18.0)
Hct 31.5 L %
(39.0-52.0)
MCH 26.7 L pg
(27.0-31.0)
MCHC 32.1 L g/dL
(33.0-37.0)
RDW 18.9 H %
(11.5-14.5)
Lymphocytes % 19.5 L %
(20.5-51.1)
PT 15.2 H Sec
(11.4-14.6)
Glucose 199 H mg/dl
(70-99)
08/21/25 19:28
08/21/25 19:28
Vital Signs
Initial and Last Documented VS:
Initial Vital Signs
Temp Pulse Resp BP Pulse Ox
97.6 F 69 16 112/68 100
08/21/25 17:02 08/21/25 17:02 08/21/25 17:02 08/21/25 17:02 08/21/25 17:02
Last Documented Vital Signs
Temp Pulse Resp BP Pulse Ox
97.6 F 68 20 149/76 100
08/21/25 17:02 08/21/25 20:53 08/21/25 20:53 08/21/25 20:53 08/21/25 20:38
MDM/Problems Addressed
Differential Diagnosis Includes:
Postoperative complication/bleeding
Cellulitis
Abscess
MDM/Problems Addressed:
70-year-old male presenting to the ER for evaluation of bleeding from his external fixator. Patient is hemodynamically stable and in no acute distress. Noting increased pain to the area, received Dilaudid while admitted to the hospital reporting
good pain relief with this so we will treat with this while waiting to speak with Ortho. Disposition pending
*Radiology
Radiology exam reviewed: radiology read reviewed
*Pulse Oximetry
SaO2: 100
Oxygen Mode of Delivery: Room air
Patient hypoxic: no
*Critical Care Note
Total Time (30-74mins, 75-104mins- exclusive of procedures): Not Applicable
Patient Management
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
Escalation/DeEscalation of care consider admission/obs:
Case discussed with orthopedics via [facility] text, they will send their fellow Dr. Nolan, to come to the ED to evaluate the patient.
Ortho at the bedside, they were able to remove the dressing, clean the area and noted one of the pins seemed a little bit loose but that this would be removed surgically within the next week. They do not recommend any medication changes, they will
continue to follow-up with the patient on an outpatient basis. Patient is otherwise stable for discharge home from the ER.
ED Attending Note
-
Portions of this chart may have been created with voice recognition software.� Occasional wrong word or��sound alike� substitutions may have occurred due to the inherent limitations of voice recognition software.
Discharge Plan
Departure
Patient Disposition: Home (Routine Discharge)
Date of Disposition: 08/21/25
Time of Disposition: 20:39
Patient with high blood pressure during this ER visit?: No
Discharge Problem:
Post surgical complication
Instructions: Postoperative Pain (DC)
Prescriptions:
No Action
venlafaxine [Effexor XR] 75 mg Capsule,Extended Release 24hr
75 mg PO HS
atorvastatin 10 mg Tablet
10 mg PO QPM
amiodarone 200 mg Tablet
200 mg PO DAILY
valacyclovir 500 mg Tablet
500 mg PO HS
furosemide 20 mg Tablet
20 mg PO DAILY
metoprolol succinate 25 mg Tablet Extended Release 24 Hr
25 mg PO DAILY
Novolin 70-30 FlexPen U-100 100 unit/mL (70-30) Insulin Pen
20 unit SC HS
Eliquis 5 mg Tablet
5 mg PO BID
Patient Comments:
patient buys from [facility]
Mounjaro 7.5 mg/0.5 mL Pen Injector
7.5 mg SC ESPINAL
potassium chloride 10 mEq Tablet Extended Release
10 meq PO DAILY
DAPTOmycin [Cubicin] 1000 MG
Syringe [Syringe-Pump] 0 ML
As Directed mls/hr IV Q24H
Ordered By: Ricardo No MD
Last Taken: Unknown
ferrous sulfate 325 mg (65 mg iron) Tablet
325 mg PO DAILY
hydromorphone [Dilaudid] 2 mg tablet
2 mg PO Q8H PRN (Reason: severe intractable pain) Qty: 15 0RF
oxycodone 15 mg Tablet
10 mg PO Q4HPRN PRN (Reason: severe pain) Qty: 18 0RF
Novolin 70-30 FlexPen U-100 100 unit/mL (70-30) Insulin Pen
30 unit SC DAILY Qty: 0 0RF
Referrals:
Stephanie Car MD [Family Provider]
Interventions
Interventions:
*Risk Screen - Suicide Last Done: 08/21/25 17:02
*General Assessment Last Done: 08/21/25 17:02
*Neglect/Abuse Screening Last Done: 08/21/25 17:02
*ED- Fall Risk Assessment Last Done: 08/21/25 17:02
*ED COVID-19 Vaccine History Last Done: 08/21/25 17:02
*ED Influenza Vaccine History Last Done: 08/21/25 17:02
*Nursing Disposition Last Done: 08/21/25 21:04
ED-Skin Assessment Last Done: 08/21/25 19:13
Discharge Date and Time
Discharge Date/Time: 08/21/25 21:05
Print Language: BURMESE
--- NOTE | 2025-08-21 20:50 | W.PN.UPDATE ---
Update Note
Progress Note Update
70 M presents with bleeding from exfix pin site. no bleeding at time of visit. wires in place, middle block wire slightly loose.
- xrays reviewed by me - hardware in place, no broken wires, no fractures, no nate
- dressing replaced and wires cleansed
- patient may follow up in office for scheduled visit on Friday
- remain NWB LLE
[2025-08-21 20:53] VITALS: BP 149/76
--- NOTE | 2025-08-21 21:02 | VATNOTE ---
PT TO EMR FOR ISSUES WITH LLE EXTERNAL FIXATOR. EXISITING LUE PICC FOR HOME ABX IN PLACE. HAI C/D/I WITH BIOPATCH FROM HAI CHANGE 08/19 PER PT AND BY HOME INFUSION NURSE. PICC PATENT AND GOOD BR OBTAINED. LABS OBTAINED ORDERED. PICC TIP
CONFIRMED BY CXR,, READ BY DPM.
== END 2025-08-21 21:05 | disposition home or self-care (01) ==
LOC: EMR 16:58
PROVIDERS: Physician Assistant Medical; EMERGENCY PHYSICIAN Emergency Medicine; FAMILY PHYSICIAN Internal Medicine
DX: M96.830 Postprocedural hemorrhage of a musculoskeletal structure following a musculoskeletal system procedure (principal); Y79.2 Prosthetic and other implants, materials and accessory orthopedic devices associated with adverse incidents; G89.18 Other acute postprocedural pain; E78.00 Pure hypercholesterolemia, unspecified; I10 Essential (primary) hypertension; E11.9 Type 2 diabetes mellitus without complications; I48.91 Unspecified atrial fibrillation
CPT/HCPCS: 99284; 96374; 96376; 71045; 73590; 73610; 73630; 80048; 85025; 85610; 85730; 86850; 86900; 86901

== ENCOUNTER 2025-08-29 06:11 | Day surgery (SDC) | payer MEDICARE, OTHER, SELFPAY ==
[2025-08-29] VITALS (12 sets, daily range): BP systolic 114–149; BP diastolic 62–104; BMI 31.9; BMI 31.8
[2025-08-29] MEDS: CELEBREX 200 MG PO (15:04)
[2025-08-29] MEDS: TYLENOL 1000 MG PO (15:05)
[2025-08-29 15:33] LABS: Glucose - Point of Care 100 mg/dl (70-99)
[2025-08-29] MEDS: NORMOSOL-R/PLASMALYTE-A 1000 IV (15:43)
[2025-08-29] MEDS: VANCOCIN 530 MG IV (15:43)
[2025-08-29] MEDS: ROXICODONE 10 MG PO ×2 (15:44→22:16)
--- NOTE | 2025-08-29 19:49 | W.PN.UPDATE ---
Update Note
Progress Note Update
70M s/p removal of exfix, ankle arthrodesis
- Strict NWB LLE
- continue surgical ppx abx 24hrs
- Dressings c/d/i
- elevate LLE 2-3 pillows
- no further surgical plans
- will reassess on AM rounds
[2025-08-29 20:01] LABS: Glucose - Point of Care 115 mg/dl (70-99)
--- NOTE | 2025-08-29 20:19 | HPS.HSE ---
Family Physician
-
Family Physician: NO INTERVIEW UNKNOWN
Chief Complaint
-
Charcot Foot
History of Present Illness
Patient is a 70 y/o male past medical history of atrial fibrillation on anticoagulation, diabetes mellitus, hypertension, obesity and recent hospitalization for left ankle osteomyelitics and septic joint requiring hardware removal and placement of
ring external fixator who now returns for removal of external fixator. Patient seen in the PACU following the procedure.
Medical History
Past Medical History
Past Medical History: Reports Other
Additional Past Medical History:
Paroxysmal Atrial Fibrillation
Chronic HFpEF
DM-II
Hypertension
Obesity
MELBA
BPH
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
Charcot Foot
Past Surgical History: Reports Other
Additional Past Surgical History:
Left Foot Double Arthrodesis and Achilles Lengthening (04/21/25)
Left Ankle Pinning / Charcot Arthropathy Stabilization (07/01/25)
Left Ankle Hardware Removal and External Fixator Placement (07/11/25)
Left Ankle Debridement, Antibiotic Bead Placement, Adjustment External Fixator (08/09/25)
A-Fib Ablation
Hernia Repair
TKA
Rotator Cuff Surgery
Appendectomy
Social History
Tobacco: Former Smoker (Remote history of smoking.)
Alcohol: Occasional
Drug: None
Family History
Family History: Not pertinent
Allergies / Home Medications
Allergies reflects when Allergies were last updated in [employer].
Home Medications with original date entered in [employer]
Allergy/Medication List:
Allergies
Allergy/AdvReac Type Severity Reaction Status Date / Time
erythromycin base Allergy Nausea / Verified 08/29/25 15:34
Vomiting
morphine Allergy 'gives me Verified 08/29/25 15:34
a bad
headache'
Home Medications
amiodarone 200 mg tablet 200 mg PO DAILY AFIB 04/14/25
apixaban 5 mg tablet (Eliquis) 5 mg PO BID Blood Clot Prevention/Tx 04/14/25
atorvastatin 10 mg tablet 10 mg PO QPM High Cholesterol 04/14/25
Held on 08/10/25. Instructions: until cleared to resume (after completion of Daptomycin)
furosemide 20 mg tablet 20 mg PO DAILY Fluid Retention/Swelling 04/14/25
insulin NPH-regular 70-30 U-100 insulin 100 unit/mL subcutaneous pen (Novolin 70-30 FlexPen U-100 Insulin) 20 unit SC HS Diabetes 04/14/25
metoprolol succinate 25 mg tablet,extended release 24 hr 25 mg PO BID Blood Pressure 04/14/25
tirzepatide 7.5 mg/0.5 mL subcutaneous pen injector (Mounjaro) 7.5 mg SC ESPINAL Diabetes 04/14/25
valacyclovir 500 mg tablet 500 mg PO HS ANTI VIRAL 04/14/25
venlafaxine 75 mg capsule,extended release 24 hr (Effexor XR) 75 mg PO HS Mental Health/Anxiety 04/14/25
potassium chloride 10 mEq tablet,extended release 10 meq PO DAILY Supplement 06/29/25
DAPTOmycin [Cubicin] 1,000 mg As Directed mls/hr IV Q24H 07/13/25
ferrous sulfate 325 mg (65 mg iron) tablet 325 mg PO DAILY 08/04/25
insulin NPH-regular 70-30 U-100 insulin 100 unit/mL subcutaneous pen (Novolin 70-30 FlexPen U-100 Insulin) 30 unit (0.3 mL) SC DAILY Diabetes #0 mL 08/10/25
oxycodone-acetaminophen 10 mg-325 mg tablet 1 tab PO Q4H PRN pain 08/25/25
Review of Systems
-
Unable to obtain full review of systems at this time due to: Other (Patient lethargic / sedated in PACU following procedure)
Physical Exam
Vital Signs
Vital Signs
Temp Pulse Resp BP Pulse Ox
97.2 F 61 13 134/83 100
08/29/25 19:49 08/29/25 20:00 08/29/25 20:00 08/29/25 20:00 08/29/25 19:50
Physical Exam
General: Well Developed and Well Nourished
HEENT: Anicteric and Moist mucous membranes
Respiratory: Clear and Non Labored Respirations
Cardiac: S1/S2 and Irregular Rhythm; No Tachycardia
GI: Soft and Other (Protuberant)
Rectal: Deferred by Provider
Musculoskeletal: No Clubbing, No Cyanosis and Other (Left Lower Extremity wrapped in LLUVIA)
Skin: Warm and Dry
Neuro: Other (Sedated but opens eyes to name)
Psych: Calm
Data Reviewed
-
Lab Data: Labs Reviewed by me
Old Records: Reviewed
Impression/Plan
-
Left Charcot Ankle / Left Ankle Infection
-08/29: Left ankle external fixator removed
-Continue non-weight bearing status
-Continue Daptomycin (previous notes indicate last day 09/05)
-PT/OT and Case Management consults
Paroxysmal Atrial Fibrillation
-Continue amiodarone and metoprolol
-Resume Eliquis evening of 08/30 per podiatry
Chronic HFpEF
-Continue Lasix
-Monitor Daily Weights
Diabetes Mellitus, Type II
-Continue NovoLog 70/30
-Monitor sugars and continue coverage insulin
Essential Hypertension
-Continue metoprolol
Hyperlipidemia
-Atorvastatin on hold while on Daptomycin
DVT proph: Eliquis
Code Status: Full Code
--- NOTE | 2025-08-29 20:42 | W.PN.UPDATE ---
Update Note
Progress Note Update
Patient seen in conjunction with nurse practitioner. I agree with the findings on exam physical. Patient colleagues and upon acted otherwise.
Briefly, this is a 70-year-old male with past medical history significant for insulin-dependent diabetes, hypertension, atrial fibrillation anticoagulation, left Charcot foot status post reconstructive surgery with infected hardware and septic
arthritis with MRSA bacteremia currently on daptomycin will was found to have suspicion of osteomyelitis of previous evaluation in Aug 09, continued on IV antibiotics via PICC line until September 05 knees postop day 0 status post hardware removal from
the ankle. Surgery was relatively extended with some bleeding from the procedure. Postoperative he was hemodynamically stable but desaturating. Otherwise his vital signs were stable with a blood pressure of 128/73 pulse of 59 and satting 98%
initially on facemask with oxygen saturation of around 93% on room air. Patient chest x-ray today shows right PICC line in place. No labs pending at this time.
Assessment and plan
Charcot foot on chronic antibiotics status post hardware removal
- Admit to [facility]
- Postop management 2 weeks appropriate analgesia
- Wean oxygen as tolerated
- Continue daptomycin via PICC line daily
- Holding Elielenitais joanne, restart tomorrow
- H&H and electrolytes in a.m.
- Patient can be discharged with ID and orthopedic follow-up
- PT/OT and case management
Atrial fibrillation
- Hold Eliquis tonight, can restart in a.m.
- Continue amiodarone
- Continue metoprolol succinate
Diabetes
-Management as per the nurse practitioner note with the basal bolus insulin
MELBA
- not on cpap, 2L NC oxygen prn
DVT prophylaxis�on Eliquis
CODE STATUS�full code
[2025-08-29 21:58] LABS: Glucose - Point of Care 163 mg/dl (70-99)
[2025-08-29] MEDS: VALTREX 500 MG PO (22:16)
[2025-08-29] MEDS: EFFEXOR XR 75 MG PO (22:16)
--- NOTE | 2025-08-29 22:18 | VATNOTE ---
PT READMITTIED WITH 4FR SL RUE PICC. DRSG C/D/I. CXR CONFIRMS PICC TIP TO BE SVC. BIOPATCH IN PLACE.
[2025-08-29] MEDS: NOVOLOG MIX 70/30 FLEXPEN 20 UNITS SC (22:44)
[2025-08-29] MEDS: DILAUDID 0.25 MG IV (23:50)
[2025-08-30] MEDS: DILAUDID 2 MG PO (02:29)
[2025-08-30 03:03] VITALS: BP 132/66
[2025-08-30 04:48] LABS: Hematocrit 29.9 % (39.0-52.0); Hemoglobin 9.5 g/dL (13.0-18.0); Mean Corp Hgb Conc. 31.8 g/dL (33.0-37.0); Mean Corpuscular Volume 84.7 fL (80.0-94.0); Platelet Count 256 10^3/uL (130-400); Red Cell Dist. Width 16.8 % (11.5-14.5)
[2025-08-30 05:12] LABS: Blood Urea Nitrogen 21 mg/dl (9-20); Calcium 8.7 mg/dl (8.4-10.2); Carbon Dioxide 27 mmol/L (22-30); Chloride 103 mmol/L (98-107); Estimated Creatinine Clearance 78 ml/min; Glucose 150 mg/dl (70-99); Potassium 4.7 mmol/L (3.5-5.1); Sodium 138 mmol/L (135-145); eGFR > 60.00
[2025-08-30] MEDS: DILAUDID 0.25 MG IV (06:43)
[2025-08-30 07:18] LABS: Glucose - Point of Care 146 mg/dl (70-99)
[2025-08-30 07:19] VITALS: BP 109/57
[2025-08-30] MEDS: FEOSOL 325 MG PO (08:00)
[2025-08-30] MEDS: PACERONE 200 MG PO (08:01)
[2025-08-30] MEDS: LASIX 20 MG PO (08:03)
[2025-08-30] MEDS: CUBICIN 20 MG IV (08:05)
[2025-08-30] MEDS: KCL 10 MEQ PO (08:05)
[2025-08-30] MEDS: NOVOLOG MIX 70/30 FLEXPEN 30 UNITS SC (08:06)
[2025-08-30] MEDS: TOPROL XL 25 MG PO (08:07)
--- NOTE | 2025-08-30 09:17 | W.PN.HOSP.TC ---
Addendum entered and electronically signed by Noe Metz DO 08/30/25 10:05:
Spoke with podiatry, okay to discharge today. Outpatient follow-up.
Original Note:
Today's Communication/Plan
-
Continue analgesics
PT/OT
Continue antibiotics
Assessment / Plan
Assessment / Plan
Gen-AAOx3, NAD
HEENT-NC, AT, anicteric, clear oral mm
Neck-supple
CV-reg, no M, +S1/S2
Lungs-clear B/L
Abd-soft, NT, ND
Ext-no edema
Musculoskeletal-no cyanosis, clubbing, left lower extremity Kurt bandage dressing
Skin-warm and dry
Neuro-grossly non-focal
Psych-calm, cooperative
Left ankle Charcot joint -underwent successful external fixator removal, antibiotic bead removal, Charcot reconstruction with ankle arthrodesis, 08/29.
Strict nonweightbearing left lower extremity per podiatry. PT/OT consulted.
Patient having significant ankle pain postoperatively, oxycodone is not helping. IV Dilaudid ordered as needed.
Left ankle septic arthritis/hardware infection -continue IV daptomycin, end date September 05. Already has home visiting nursing arranged. PICC line in place.
DM 2 without hyperglycemia -glucose 150 this morning. At home he is on Novolin 70/30 insulin, 30 units in the morning, 20 units in the evening. Mounjaro 7.5 mg subcutaneously every Friday.
Paroxysmal atrial fibrillation -continue Eliquis, amiodarone.
Chronic heart failure preserved EF -stable.
Essential hypertension -stable.
Hyperlipidemia -atorvastatin on hold while getting daptomycin.
BPH
Chronic anemia -normocytic. Hemoglobin at baseline. Likely inflammatory anemia. Follow-up with PCP.
History of upper extremity DVT
Tobacco dependence -smokes cigars. Counseled on need for abstinence, especially in light of septic ankle arthritis, hardware infection.
MELBA -intolerant of CPAP.
Obesity due to excess calories
Full code
Dispo -discharge when cleared by podiatry.
Anticipated Discharge: Within 24 hours
Subjective/Interval History
-
Date of Service: August 30, 2025
Patient seen and examined, having moderate left ankle pain.
Objective Data
-
Labs:
Laboratory Results
08/30/25
04:28
WBC 10.8
Hgb 9.5 L
Hct 29.9 L
Plt Count 256
Sodium 138
Potassium 4.7
Chloride 103
Carbon Dioxide 27
BUN 21 H
Creatinine 1.1
Glucose 150 H
Calcium 8.7
Vital Signs:
Vital Signs
Temp Pulse Resp BP Pulse Ox
97.8 F 65 16 126/56 97
08/30/25 07:19 08/30/25 08:07 08/30/25 07:19 08/30/25 08:07 08/30/25 07:19
I&O
08/29/25 08/30/25 08/31/25
06:59 06:59 06:59
Intake Total 460 / 460
Output Total 425 / 425
Balance 35 / 35
Review of Systems
-
History Source: Patient
All other systems: Reviewed and negative
[2025-08-30 09:43] VITALS: BP 139/62; PULSE 70
--- NOTE | 2025-08-30 10:03 | CM ---
Addendum entered by Renee Pritchard RN 08/30/25 10:15:
CM spoke with [facility] Pharmacist who stated that they have current orders for patient's infusions and do not need further documentation. CM will remain available as needed.
PLAN: Home with [facility] and [facility].
Original Note:
CM met with patient in room. Patient confirmed that he is known to [facility] and [facility]. CM updated [facility] care via Care port.
PLAN: Home with [facility] and [facility].
--- NOTE | 2025-08-30 10:04 | W.PN.UPDATE ---
Update Note
Progress Note Update
70M s/p removal of exfix, ankle arthrodesis. doing well this AM, dressing c/d/i, sensation at baseline, cft wnl, motor function intact, calves soft supple nontender to touch
- Strict NWB LLE
- continue surgical ppx abx 24hrs, not a barrier to discharge
- Dressings c/d/i
- elevate LLE 2-3 pillows
- no further surgical plans
- may follow up in office with myself or Mikie
--- NOTE | 2025-08-30 10:08 | W.DS.TRANS ---
DC Summary - Patient Access [facility]
-
Discharge Instructions:
Discharge Diagnosis/Procedures Left ankle Charcot joint, left ankle septic
arthritis, external fixator removal, antibiotic
bead removal
Diet Diabetic, Carb Controlled
Activity With assistance
Additional Activity Nonweightbearing left lower extremity
Driving Restrictions No driving
Bathing Restrictions None
Other Services VN
Instructions:
Stand-Alone Forms:
Changes to Home Medications: No
Discharge Medications:
DC Medications w/original date entered in [employer]
amiodarone 200 mg tablet 200 mg PO DAILY AFIB 04/14/25
apixaban 5 mg tablet (Eliquis) 5 mg PO BID Blood Clot Prevention/Tx 04/14/25
atorvastatin 10 mg tablet 10 mg PO QPM High Cholesterol 04/14/25
Held on 08/30/25. Instructions: Resume after completion of daptomycin
furosemide 20 mg tablet 20 mg PO DAILY Fluid Retention/Swelling 04/14/25
insulin NPH-regular 70-30 U-100 insulin 100 unit/mL subcutaneous pen (Novolin 70-30 FlexPen U-100 Insulin) 20 unit SC HS Diabetes 04/14/25
metoprolol succinate 25 mg tablet,extended release 24 hr 25 mg PO BID Blood Pressure 04/14/25
tirzepatide 7.5 mg/0.5 mL subcutaneous pen injector (Mounjaro) 7.5 mg SC ESPINAL Diabetes 04/14/25
valacyclovir 500 mg tablet 500 mg PO HS ANTI VIRAL 04/14/25
venlafaxine 75 mg capsule,extended release 24 hr (Effexor XR) 75 mg PO HS Mental Health/Anxiety 04/14/25
potassium chloride 10 mEq tablet,extended release 10 meq PO DAILY Supplement 06/29/25
DAPTOmycin [Cubicin] 1,000 mg As Directed mls/hr IV Q24H 07/13/25
ferrous sulfate 325 mg (65 mg iron) tablet 325 mg PO DAILY 08/04/25
insulin NPH-regular 70-30 U-100 insulin 100 unit/mL subcutaneous pen (Novolin 70-30 FlexPen U-100 Insulin) 30 unit (0.3 mL) SC DAILY Diabetes #0 mL 08/10/25
oxycodone-acetaminophen 10 mg-325 mg tablet 1 tab PO Q4H PRN pain 08/25/25
Home Medication Changes
Pending Results: No
[2025-08-30 10:10] VITALS: BP 139/62; PULSE 70
[2025-08-30] MEDS: DILAUDID 0.5 MG IV ×2 (10:12→14:14)
[2025-08-30 10:59] VITALS: BP 109/54
[2025-08-30 11:18] LABS: Glucose - Point of Care 134 mg/dl (70-99)
== END 2025-08-30 15:35 | disposition home health service (06) ==
LOC: SDS 06:11
PROVIDERS: Physician Assistant Medical; ATTENDING PHYSICIAN Hospitalist; CONSULT PHYSICIAN Student in an Organized Health Care Education/Training Program
DX: T84.69XA Infection and inflammatory reaction due to internal fixation device of other site, initial encounter (principal); M00.872 Arthritis due to other bacteria, left ankle and foot; E11.610 Type 2 diabetes mellitus with diabetic neuropathic arthropathy; I48.0 Paroxysmal atrial fibrillation; G47.33 Obstructive sleep apnea (adult) (pediatric); E11.65 Type 2 diabetes mellitus with hyperglycemia; I11.0 Hypertensive heart disease with heart failure; I50.32 Chronic diastolic (congestive) heart failure; E66.09 Other obesity due to excess calories; F17.290 Nicotine dependence, other tobacco product, uncomplicated; Y79.3 Surgical instruments, materials and orthopedic devices (including sutures) associated with adverse incidents; Y83.4 Other reconstructive surgery as the cause of abnormal reaction of the patient, or of later complication, without mention of misadventure at the time of the procedure; Z68.31 Body mass index [BMI] 31.0-31.9, adult; Z79.01 Long term (current) use of anticoagulants; Z79.2 Long term (current) use of antibiotics; Z79.4 Long term (current) use of insulin
CPT/HCPCS: 27870; 20694; 71045; 73610; 76000; 80048; 82962; 85027; 97162; 97166; J0878